=== PATIENT | male | born 1950 | race Caucasian/White ===

== ENCOUNTER 2019-02-14 09:59 | Inpatient (IN) | payer MEDICARE ==
[~2019-02-14] VITALS: Ht 167.6 cm; Wt 86.0 kg
[2019-02-14] MEDS: LANSOPRAZOLE SUSPENSION 30 MG/10 ML ORAL SYRINGE (FIRST-LANSOPRAZOLE) PEG SCH (09:00)
[2019-02-14] MEDS ORDERED: MECLIZINE 25 MG TABLET PEG PRN (13:00)
[2019-02-14] MEDS ORDERED: GLUCOSE 4 GM CHEW TABLET PO PRN (13:00)
[2019-02-14] MEDS ORDERED: ALBUTEROL SULFATE 2.5 MG/0.5 ML INH NEB SOLN NEB PRN (13:00)
[2019-02-14] MEDS ORDERED: MAGIC MOUTHWASH SUSPENSION BTL SSP SCH (13:00)
[2019-02-14] MEDS ORDERED: GLUCAGON FOR INJ 1 MG VIAL (J1610) SC PRN (13:00)
[2019-02-14] MEDS ORDERED: DEXTROSE 50% 50 ML SYRINGE IV PRN (13:00)
[2019-02-14 13:10] VITALS: BP 134/78
[2019-02-14] MEDS ORDERED: ECOT81TA5 PO (14:02)
[2019-02-14] MEDS ORDERED: MUCI600T31 PO (14:02)
[2019-02-14] MEDS ORDERED: JANU100T PO (14:02)
[2019-02-14] MEDS ORDERED: GLIM2TAB4 PO (14:02)
[2019-02-14] MEDS ORDERED: FLUO10CA15 PO (14:02)
[2019-02-14] MEDS ORDERED: METO25TA4 PO (14:02)
[2019-02-14] MEDS ORDERED: RAMI1CAP22 PO (14:02)
[2019-02-14] MEDS ORDERED: METF500T13 PO (14:02)
[2019-02-14] MEDS ORDERED: ALBU83IN INH (14:02)
[2019-02-14] MEDS ORDERED: OMEP1CAP73 PO (14:02)
[2019-02-14] MEDS ORDERED: MECL-86 PO (14:02)
[2019-02-14] MEDS ORDERED: CLOP75TA2 PO (14:02)
[2019-02-14] MEDS ORDERED: ATOR40TA75 PO (14:02)
--- NOTE | 2019-02-14 14:03 | CR.PDOC ---
General Date of Consultation: Feb 14, 2019 Referring Provider: NAJMA DURBIN MD Attending Physician: PERRY TROTTER MD Consultation REASON FOR CONSULTATION/CHIEF COMPLAINT: Medical Management HISTORY OF PRESENT ILLNESS: Patient is a 68-year-old male, past medical history significant for hypertension, hyperlipidemia, diabetes mellitus type 2, who presented to the hospital on account of feeling bad with left-sided weakness. He was transferred to [facility] for acute stroke. At that facility. CT brain was negative for acute intracranial process. Subsequent MRI did reveal right pontine infarct. Left-sided hemiplegia persisted with dysarthria and dysphagia. Patient had a swallow, speech evaluation, which showed persistent aspiration. A PEG tube was placed. He was started on medications for management of acute stroke and subsequently discharged to this facility for inpatient rehabilitation. On assessment, he denies chest pain, denies shortness of breath, denies discomfort. Spouse at bedside provided much of the history given patient's dysarthria ALLERGIES: Please see below. HOME MEDICATIONS: Please see below. PAST MEDICAL HISTORY: Diabetes mellitus Hypertension Hyperlipidemia PAST SURGICAL HISTORY: PEG tube placement Tonsillectomy Left hip replacement FAMILY HISTORY: Mother: CVA SOCIAL HISTORY: Marital status and/or living arrangements: , living with Denies tobacco, alcohol, polysubstance abuse REVIEW OF SYSTEMS: Review of systems not completed due to patient's dysarthria PHYSICAL EXAMINATION: GENERAL: NAD SKIN : Warm, dry intact HEENT: Slurred speech Atraumatic, normocephalic, moist mucous membrane CARDIOVASCULAR: Irregular rate and rhythm, S1S2, no JVD, bilateral lower extremity edema, distal pulses + palpable RESP: CTAB, no accessory muscle use noted ABDOMEN: PEG tube present. BS+ non distended non tender MS: no joint deformities NEURO: Alert and oriented x 3, left upper and lower extremity hemiplegia PSYCH: no anxiety or agitation, appropriate mood and affect. LABORATORY DATA: Please see below. ASSESSMENT/PLAN: Right pontine infarct -With left upper and lower extremity hemiplegia -Discharged to inpatient rehabilitation unit -Management of neurologic deficits by primary team -Continue beta kenney, statin, Plavix Hypertension -Continue ramipril, metoprolol -Blood pressure monitoring per unit protocol Type 2 diabetes mellitus -Hemoglobin check at another facility 8.2 -Continue glimepiride, Januvia, fingerstick monitoring every 6 hours -Caloric controlled feeds Dysphagia -Status post PEG placement -Nutrition consult for recommendations for feeds -Follow recommendations -Aspiration precautions DVT prophylaxis -Heparin subcutaneous Vital Signs/I&O Vital Signs Date Time Temp Pulse Resp B/P (MAP) Pulse Ox O2 Delivery O2 Flow Rate FiO2 02/14/19 13:10 97.6 68 16 134/78 (96) 92 Allergies Coded Allergies: No Known Allergies (Verified Allergy, Unknown, 02/14/19) YESSENIA WOODSP Feb 14, 2019 14:03
[2019-02-14] MEDS ORDERED: JARD1TAB3 PO (14:13)
[2019-02-14] MEDS ORDERED: METF-791 PO (14:13)
[2019-02-14] MEDS ORDERED: FENO135C6 PO (14:13)
[2019-02-14 14:47] LABS: BASO % 0.5 % (0.0-1.0); EOS # 0.2 10^3/uL (0.0-0.50); EOS % 2.6 % (0.0-3.0); HEMATOCRIT 50.6 % (42.0-52.0); HEMOGLOBIN 16.5 g/dl (13.5-17.5); LYMPH # 0.9 10^3/uL (1.5-4.5); MEAN CORPUSCULAR HEMOGLOBIN 28.9 pg (27.0-33.0); MEAN CORPUSCULAR HGB CONC 32.6 g/dl (32.0-36.5); MEAN CORPUSCULAR VOLUME 88.6 fl (80.0-96.0); MONO # 0.6 10^3/uL (0.0-0.8); NEUTROPHILS # 4.4 10^3/uL (1.8-7.7); NEUTROPHILS % 71.7 % (36.0-66.0); PLATELET COUNT, AUTOMATED 199 10^3/uL (150-450); RED BLOOD COUNT 5.71 10^6/uL (4.30-6.10); WHITE BLOOD COUNT 6.2 10^3/uL (4.0-10.0)
[2019-02-14 15:15] LABS: BLOOD UREA NITROGEN 18 MG/DL (7-18); CALCIUM LEVEL 8.3 MG/DL (8.8-10.2); CARBON DIOXIDE LEVEL 27 MEQ/L (21-32); CHLORIDE LEVEL 107 MEQ/L (98-107); CK-MB VALUE MASS 1.5 NG/ML (<3.6); CREATININE FOR GFR 0.69 MG/DL (0.70-1.30); GLOMERULAR FILTRATION RATE > 60.0 (>49); GLUCOSE, FASTING 221 MG/DL (70-100); SODIUM LEVEL 141 MEQ/L (136-145); TROPONIN I < 0.02 NG/ML (< 0.10)
[2019-02-14 15:27] LABS: AMORPHOUS SEDIMENT SMALL (NEGATIVE); APPEARANCE, URINE CLOUDY (CLEAR); BACTERIA, URINE AUTO NEGATIVE (NEGATIVE); BILIRUBIN, URINE AUTO NEGATIVE (NEGATIVE); BLOOD, URINE BLOOD NEGATIVE (NEGATIVE); COLOR, URINE YELLOW (YELLOW); GLUCOSE, URINE (UA) AUTO 3+ mg/dL (NEGATIVE); KETONE, URINE AUTO NEGATIVE (NEGATIVE); LEUKOCYTE ESTERASE, URINE AUTO NEGATIVE (NEGATIVE); NITRITE, URINE AUTO NEGATIVE (NEGATIVE); PROTEIN, URINE AUTO NEGATIVE (NEGATIVE); RBC, URINE AUTO 4 /HPF (0-3); SPECIFIC GRAVITY URINE AUTO 1.024 (1.002-1.035); SQUAMOUS EPITHELIAL CELL UR AU 0 /HPF (0-6); URIC ACID CRYSTALS SMALL; UROBILINOGEN, URINE AUTO 0.2 mg/dL (0.0-2.0); WBC, URINE AUTO 0 /HPF (0-3)
[2019-02-14] MEDS: guaiFENesin SYRUP 200 MG/10 ML UDC PEG SCH ×2 (16:00→22:28)
--- NOTE | 2019-02-14 17:28 | HPEPDOC ---
Operations Administrator Note DATE OF ADMISSION: 02-14-19 SOURCE OF ADMISSION INFORMATION: [facility] and patient CHIEF COMPLAINT: stroke HISTORY OF PRESENT ILLNESS: 68M pmh HTn, HLD, DM, obesity who presented t [facility] on 02-06-19 complaining of left sided weakness and slurred speech. CT head was negative for intracranial hemorrhage and MRI showed, Focal area of for DWI hyperintensity in the right bao suggestive of for acute to early subacute infarct CT angio head and neck did not show large vessel occlusions. He was admitted to the stroke service, started on ASA and Plavix to be continued for 90 days total then transitioned to just ASA. ECHO was also performed showing, Overall LV systolic function is normalThere are no regional wall motion abnormalities...There is no interatrial shunt visualized by color Doppler and 'bubble' study. Patient was noted to have severe dysphagia and underwent PEG tube placement on 02-12-19 without complication. He was evaluated by therapy and found to be significantly below his baseline for mobility and ADL management in the setting of dense left upper and lower extremity paresis and deemed medically appropriate for discharge to ARU on 02-14-19. REVIEW OF SYSTEMS: The following is a completed review of systems and has been reviewed. Review of systems otherwise unremarkable. PAIN: Patient self reports no pain EYES: No recent vision changes EARS, NOSE, & THROAT: No throat pain +dysphagia CARDIOVASCULAR: Denies chest pain or palpitations PULMONARY: Denies shortness of breath, + weak cough GASTROINTESTINAL: Denies constipation/diarrhea GENITOURINARY: no dysuria or incontinence MUSCULOSKELETAL: left hip replacement NEUROLOGICAL:left sides paresis HEMATOLOGICAL: negative SKIN:peg PSYCHIATRIC: Unremarkable All other review of systems found to be negative. PAST MEDICAL HISTORY: as per HPI PAST SURGICAL HISTORY: left hip replacement ALLERGIES: Please see below. MEDICATIONS: Please see below. 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 GENERAL: Pleasant and cooperative. No acute distress. HEENT: PERRL. Extraocular movements intact. Clear conjunctiva. left facial droop with tongue deviation to the left CARDIOVASCULAR: Regular rate and rhythm. No murmurs, rubs, or gallops LUNGS: scattered rhonchi ABDOMEN: Soft, nontender, nondistended. Positive bowel sounds. Normal active bowel sounds. +PEG NEUROLOGICAL: Alert and oriented times three. Cranial nerves II, III, IV, V, , VIII grossly intact with deficits in VII, IX-XII on left. Sensation grossly intact in all 4 extremities +clonus 6 beats left foot, +babinski, brisk patellar reflex EXTREMITIES: 5\5 strength right upper extremities. 5\5 strength right lower extremity. flaccid paresis LUE, 2/5 hip flexion, knee extension, adduction, 0/5 ankle DF and EHL, 0/5 plantar flexion SKIN: PEG site c/d/i LABORATORY DATA: A1C 8.2% IMAGING:Imaging documentation personally reviewed by record FUNCTIONAL STATUS: Premorbid: Modified Independent with all activities of daily life as well as mobility with walker and cane On Admission: Maximum assistance for bathing, upper body dressing, bed chair and wheelchair transfers, toilet transfers, ambulation. GOALS: Mod-I with wide-based quad cane household distances, supervision for stair negotiation, Mod-I for functional transfers, dressing, toileting, Supervis ion for bathing, medical optimization, assess for DME needs ASSESSMENT:68-year-old M with past medical history of HTN, DM, HLD who presents status post right pontine stroke PLAN: 1. 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 Neuro: s.p right pontine stroke with dysphagia and dense hemiplegia- c/u secondary stroke prevention ASA, plavix, statin, BP control -Prozac for motor recovery and mood 3. Cardio- pmh HTN c/u BP meds, HTN c/u statin, medicine consulted to assist in management 4. Resp: encourage incentive spirometry, DuoNeb, Guaifenesin, flonase, CXR ordered, monitor for infection- no leukocytosis on admission 5. : monitor PVRs will obtain UA 6. GI: PPI for ppx, bowel meds for optimal bowl care 7. Endo: pmh DM c/u Januvia and glimepiride with ISS coverage adjust prn 8. Nutrition- c/u tube feeds overnight with midday bolus 9. DVT ppx: heparin and albin 10. Dispo: TBD POST ADMISSION PHYSICIAN EVALUATION: Medical and functional status: Description of medical status, medical assessment: As above. Rehabilitation diagnosis and current and prior cold morbid medical conditions as above. Risk of complications and plans to mitigate them as above. Description of functional status current status is as above. Prior status as above. Status compared to preadmission: There are no clinically significant differences between the patient's current status and the information described on the preadmission screening document. Treatment plan anticipated: Treatment plan is as described above. Required disciplines including physical therapy, occupational therapy, others as noted above. Intensity of services: 3 hours a day, 6 days a week. Special considerations: There are no specific special or safety considerations that would likely preclude immediate implementation of an intensive rehabilitation program or subsequently influence the plan of care. ATTESTATION: Considering all the information above, it is my best judgment that this patient requires intensive rehabilitation therapy as described above and an inpatient hospital environment due to the complexity of nursing, medical, and rehabilitation needs required by the patient. Furthermore, this patient can reasonably be expected to participate in an benefit from an inpatient rehabilitation stay with an interdisciplinary team approach to the delivery of rehabilitation care under the direction and supervision of rehabilitation physician. PROGNOSIS: Good ESTIMATED LENGTH OF STAY:21-24 days. PROJECTED DISCHARGE DESTINATION: Home with family support and any durable medical equipment required to increase functional safety and mobility. TIME SPENT COUNSELING AND COORDINATING INITIAL CARE: Greater than 70 minutes. Vital Signs Vital Sign - Last 24 Hours 02/14/19 13:10 Temp 97.6 Pulse 68 Resp 16 B/P (MAP) 134/78 (96) Pulse Ox 92 Laboratory Data CBC/BMP Laboratory Tests 02/14/19 14:27 Red Blood Count 5.71, Mean Corpuscular Volume 88.6, Mean Corpuscular Hemoglobin 28.9, Mean Corpuscular Hemoglobin Concent 32.6, Red Cell Distribution Width 14.0, Neutrophils (%) (Auto) 71.7 H, Lymphocytes (%) (Auto) 15.0 L, Monocytes ( %) (Auto) 10.0 H, Eosinophils (%) (Auto) 2.6, Basophils (%) (Auto) 0.5, Neutrophils # (Auto) 4.4, Lymphocytes # (Auto) 0.9 L, Monocytes # (Auto) 0.6, Eosinophils # (Auto) 0.2, Basophils # (Auto) 0.0, Calcium Level 8.3 L Labs 24H Laboratory Tests 2 02/14/19 14:27: Immature Granulocyte % (Auto) 0.2, White Blood Count 6.2, Red Blood Count 5.71, Hemoglobin 16.5, Hematocrit 50.6, Mean Corpuscular Volume 88.6, Mean Corpuscular Hemoglobin 28.9, Mean Corpuscular Hemoglobin Concent 32.6, Red Cell Distribution Width 14.0, Platelet Count 199, Neutrophils (%) (Auto) 71.7H, Lymphocytes (%) (Auto) 15.0L, Monocytes (%) (Auto) 10.0H, Eosinophils (%) (Auto) 2.6, Basophils (%) (Auto) 0.5, Neutrophils # (Auto) 4.4, Lymphocytes # (Auto) 0.9L, Monocytes # (Auto) 0.6, Eosinophils # (Auto) 0.2, Basophils # (Auto) 0.0, Nucleated Red Blood Cells % (auto) 0.0, Anion Gap 7L, Glomerular Filtration Rate > 60.0, Blood Urea Nitrogen 18, Creatinine 0.69L, Sodium Level 141, Potassium Level 4.0, Chloride Level 107, Carbon Dioxide Level 27, Calcium Level 8.3L, Creatine Kinase MB 1.5, Troponin I < 0.02 02/14/19 14:59: Urine Appearance CLOUDYH, Urine Color YELLOW, Urine pH 5.0, Urine Specific Union 1.024, Urine Protein NEGATIVE, Urine Glucose (UA) 3+H, Urine Ketones NEGATIVE, Urine Urobilinogen 0.2, Urine Bilirubin NEGATIVE, Urine Leukocyte Esterase NEGATIVE, Urine Blood NEGATIVE, Urine Nitrite NEGATIVE, Urine WBC (Auto) 0, Urine RBC (Auto) 4H, Urine Hyaline Casts (Auto) 0, Urine Bacteria (Auto) NEGATIVE, Urine Squamous Epithelial Cells 0, Urine Uric Acid Crystals (Auto) SMALL, Urine Amorphous Sediment SMALLH, Urine Sperm (Auto) Microbiology Microbiology 02/14/19 Urine Culture, Received Pending Home Medications Scheduled Aspirin (Ecotrin) 81 Mg Tablet.dr, 81 MG PO DAILY, (Reported) Atorvastatin Calcium (Atorvastatin Calcium) 40 Mg Tablet, 40 MG PO QHS, (Reported) Clopidogrel Bisulfate (Clopidogrel) 75 Mg Tablet, 75 MG PO DAILY, (Reported) STARTED AT [facility] Empagliflozin (Jardiance) 25 Mg Tablet, 25 MG PO DAILY, (Reported) Fenofibric Acid (Choline) (Fenofibric Acid) 135 Mg Capsule.dr, 135 MG PO DAILY, (Reported) Fluoxetine Hcl (Fluoxetine HCl) 10 Mg Capsule, 10 MG PO DAILY, (Reported) STARTED AT [facility] Glimepiride (Glimepiride) 2 Mg Tablet, 4 MG PO BID, (Reported) Metformin HCl (Metformin HCl ER) 500 Mg Tab.er.24h, 1,000 MG PO BID, (Reported) Metoprolol Tartrate (Metoprolol Tartrate) 25 Mg Tablet, 25 MG PO BID, (Reported) Omeprazole (Omeprazole) 20 Mg Capsule.dr, 20 MG PO DAILY, (Reported) Ramipril (Ramipril) 2.5 Mg Capsule, 2.5 MG PO DAILY, (Reported) Sitagliptin Phosphate (Januvia) 100 Mg Tablet, 100 MG PO DAILY, (Reported) Scheduled PRN Albuterol Sulf (Albuterol Sulfate) 2.5 Mg/3 Ml Vial.neb, 2.5 MG INH Q6H PRN for SHORTNESS OF BREATH, (Reported) Guaifenesin (Mucinex) 600 Mg Tab.er.12h, 600 MG PO BID PRN for CHEST CONGESTION, (Reported) Meclizine HCl (Meclizine HCl) 25 Mg Tablet, 25 MG PO TID PRN for DIZZINESS, (Reported) Allergies Coded Allergies: No Known Allergies (Verified Allergy, Unknown, 02/14/19) A-FIB/CHADSVASC A-FIB History Current/History of A-Fib/PAF?: No NAJMA DURBIN MD Feb 14, 2019 17:28
[2019-02-14] MEDS ORDERED: HumaLOG INSULIN (NovoLOG) PER UNIT SC SCH ×2 (17:30→21:00)
--- NOTE | 2019-02-14 17:55 | REP ---
REASON: Dyspnea. AP and lateral views were obtained. The patient was unable to raise his arms above his head for an optimal lateral view. This limited AP and lateral view exam shows the cardiac silhouette to be accentuated by technique. The technique utilized in obtaining the radiograph has magnified the cardiac silhouette and accentuated the interstitial markings. No abnormal lung field opacities are noted. The osseous structures are within normal limits. IMPRESSION:Cardiomegaly suspected accentuated by technique. Limitations as described above. Electronically Signed by Walter Stockton DO 02/14/2019 06:04 P
--- NOTE | 2019-02-14 17:55 | REP ---
HISTORY: Immobility with pain and swelling. TECHNIQUE: Multiple ultrasonographic images of the deep venous structures of the bilateral thighs were obtained from the common femoral vein to the popliteal vein along with Doppler interrogation and color flow Doppler images. FINDINGS: There is no abnormal echogenic material seen within any of the visualized deep venous structures that would suggest acute thrombosis. Coaptation is unremarkable throughout. Doppler interrogation shows an expected response to respiratory variability and augmentation. The color flow images show what appears to be a normal vascular pattern throughout. IMPRESSION: There is no ultrasonographic evidence of deep venous thrombosis involving any of the visualized deep venous structures of the bilateral thighs, as described above. Electronically Signed by Walter Stockton DO 02/14/2019 06:05 P
[2019-02-14] MEDS: IPRATROPIUM 0.5MG/ALBUTEROL 2.5MG INH SOL UD 3ML (DUONEB)(J7620) NEB SCH (19:18)
[2019-02-14 20:00] VITALS: BP 132/98
[2019-02-14] MEDS: HEPARIN SOD (PORCINE) 5000 UNITS/ML VIAL SC SCH (22:27)
[2019-02-14] MEDS: DOCUSATE SOD LIQ 100MG/10ML UDC PO SCH (22:27)
[2019-02-14] MEDS: ATORVASTATIN 20 MG TAB PEG SCH (22:28)
[2019-02-14] MEDS: METOPROLOL TART 25 MG TABLET PEG SCH (22:30)
[2019-02-15] MEDS: IPRATROPIUM 0.5MG/ALBUTEROL 2.5MG INH SOL UD 3ML (DUONEB)(J7620) NEB SCH ×4 (01:27→19:05)
[2019-02-15 06:00] VITALS: BP 143/70
[2019-02-15 06:53] LABS: BASO % 0.3 % (0.0-1.0); EOS # 0.2 10^3/uL (0.0-0.50); EOS % 3.1 % (0.0-3.0); HEMATOCRIT 47.4 % (42.0-52.0); HEMOGLOBIN 15.6 g/dl (13.5-17.5); LYMPH # 0.9 10^3/uL (1.5-4.5); LYMPH % 15.3 % (24.0-44.0); MEAN CORPUSCULAR HEMOGLOBIN 28.5 pg (27.0-33.0); MEAN CORPUSCULAR HGB CONC 32.9 g/dl (32.0-36.5); MEAN CORPUSCULAR VOLUME 86.7 fl (80.0-96.0); MONO # 0.6 10^3/uL (0.0-0.8); MONO % 10.3 % (0.0-5.0); NEUTROPHILS # 4.2 10^3/uL (1.8-7.7); NEUTROPHILS % 70.8 % (36.0-66.0); PLATELET COUNT, AUTOMATED 195 10^3/uL (150-450); RED BLOOD COUNT 5.47 10^6/uL (4.30-6.10); WHITE BLOOD COUNT 5.9 10^3/uL (4.0-10.0)
[2019-02-15 07:25] LABS: ALBUMIN 2.8 GM/DL (3.2-5.2); ALT/SGPT 75 U/L (12-78); BILIRUBIN,TOTAL 0.3 MG/DL (0.2-1.0); BLOOD UREA NITROGEN 17 MG/DL (7-18); CALCIUM LEVEL 8.8 MG/DL (8.8-10.2); CARBON DIOXIDE LEVEL 26 MEQ/L (21-32); CHLORIDE LEVEL 105 MEQ/L (98-107); CREATININE FOR GFR 0.76 MG/DL (0.70-1.30); GLOMERULAR FILTRATION RATE > 60.0 (>49); GLUCOSE, FASTING 328 MG/DL (70-100); POTASSIUM SERUM 3.7 MEQ/L (3.5-5.1); SODIUM LEVEL 139 MEQ/L (136-145); TOTAL PROTEIN 7.1 GM/DL (6.4-8.2)
[2019-02-15] MEDS: GLIMEPIRIDE 2 MG TAB PEG SCH (08:30)
[2019-02-15] MEDS: ramipriL 1.25 MG CAP PEG SCH (08:31)
[2019-02-15] MEDS: METOPROLOL TART 25 MG TABLET PEG SCH ×2 (08:31→21:26)
[2019-02-15] MEDS: SITagliptin 50 MG TAB (JANUVIA) PEG SCH (08:31)
[2019-02-15] MEDS: ASPIRIN 81 MG CHEW TABLET PEG SCH (08:32)
[2019-02-15] MEDS: DOCUSATE SOD LIQ 100MG/10ML UDC PO SCH ×2 (08:32→21:26)
[2019-02-15] MEDS: LANSOPRAZOLE SUSPENSION 30 MG/10 ML ORAL SYRINGE (FIRST-LANSOPRAZOLE) PEG SCH (08:32)
[2019-02-15] MEDS: guaiFENesin SYRUP 200 MG/10 ML UDC PEG SCH ×3 (08:32→21:26)
[2019-02-15] MEDS: CLOPIDOGREL 75 MG TAB PEG SCH (08:33)
[2019-02-15] MEDS: HEPARIN SOD (PORCINE) 5000 UNITS/ML VIAL SC SCH ×2 (08:33→21:27)
[2019-02-15] MEDS ORDERED: ramipriL 5 MG CAP PEG SCH (09:00)
[2019-02-15] MEDS ORDERED: OMEPRAZOLE 20 MG CAP XX SCH (09:00)
[2019-02-15] MEDS ORDERED: DEXTROSE 50% 50 ML SYRINGE IV PRN (10:15)
[2019-02-15] MEDS ORDERED: GLUCOSE 4 GM CHEW TABLET PO PRN (10:15)
[2019-02-15] MEDS ORDERED: GLUCAGON FOR INJ 1 MG VIAL (J1610) SC PRN (10:15)
[2019-02-15] MEDS ORDERED: HumaLOG INSULIN (NovoLOG) PER UNIT SC SCH (12:00)
--- NOTE | 2019-02-15 12:39 | IPNPDOC ---
Text Note Date of Service The patient was seen on 02/15/19. NOTE Subjective: up in wheelchair at bedside, speech therapist present, patient d enies any discomfort. Objective GENERAL: NAD SKIN : Warm, dry intact HEENT: Slurred speech Atraumatic, normocephalic, moist mucous membrane CARDIOVASCULAR: Irregular rate and rhythm, S1S2, no JVD, bilateral lower extremity edema, distal pulses + palpable RESP: CTAB, no accessory muscle use noted ABDOMEN: PEG tube present. BS+ non distended non tender MS: no joint deformities NEURO: Alert and oriented x 3, left upper and lower extremity hemiplegia PSYCH: no anxiety or agitation, appropriate mood and affect. ASSESSMENT/PLAN: Right pontine infarct -With left upper and lower extremity hemiplegia -rehabilitation by primary team -Continue beta kenney, statin, Plavix Cardiac Arrhythmia -12 lead EKG with sinus bradycardia, frequent VPC, and left axis deviation -referral to cardiology at discharge is recommended -monitoring of electrolytes to keep K+>4, Mg>2 -continue betablocker therapy Hypertension -Continue ramipril, metoprolol -Blood pressure monitoring per unit protocol Type 2 diabetes mellitus -uncontrolled -most recent Hemoglobin A1c check at another facility 8.2 -Continue glimepiride, Januvia, fingerstick monitoring every 6 hours while on PEG feeds -follow ST recommendations Dysphagia -Status post PEG placement -started on feeds via PEG on nutrition recommendations -continue Aspiration precautions DVT prophylaxis -Heparin subcutaneous VS,Fishbone, I+O VS, Fishbone, I+O Laboratory Tests 02/14/19 14:27 Red Blood Count 5.71, Mean Corpuscular Volume 88.6, Mean Corpuscular Hemoglobin 28.9, Mean Corpuscular Hemoglobin Concent 32.6, Red Cell Distribution Width 14.0, Neutrophils (%) (Auto) 71.7 H, Lymphocytes (%) (Auto) 15.0 L, Monocytes (%) (Auto) 10.0 H, Eosinophils (%) (Auto) 2.6, Basophils (%) (Auto) 0.5, Neutrophils # (Auto) 4.4, Lymphocytes # (Auto) 0.9 L, Monocytes # (Auto) 0.6, Eosinophils # (Auto) 0.2, Basophils # (Auto) 0.0, Calcium Level 8.3 L 02/15/19 06:23 Red Blood Count 5.47, Mean Corpuscular Volume 86.7, Mean Corpuscular Hemoglobin 28.5, Mean Corpuscular Hemoglobin Concent 32.9, Red Cell Distribution Width 13.6, Neutrophils (%) (Auto) 70.8 H, Lymphocytes (%) (Auto) 15.3 L, Monocytes (%) (Auto) 10.3 H, Eosinophils (%) (Auto) 3.1 H, Basophils (%) (Auto) 0.3, Neutrophils # (Auto) 4.2, Lymphocytes # (Auto) 0.9 L, Monocytes # (Auto) 0.6, Eosinophils # (Auto) 0.2, Basophils # (Auto) 0.0, Calcium Level 8.8, Aspartate Amino Transf (AST/SGOT) 36, Alanine Aminotransferase (ALT/SGPT) 75, Alkaline Phosphatase 113, Total Bilirubin 0.3, Total Protein 7.1, Albumin 2.8 L Vital Signs Date Time Temp Pulse Resp B/P (MAP) Pulse Ox O2 Delivery O2 Flow Rate FiO2 02/15/19 08:31 143/70 02/15/19 08:31 68 02/15/19 06:00 97.1 19 91 I&O- Last 24 Hours up to 6 AM 02/15/19 06:00 Intake Total 625 ml Output Total 1600 ml Balance -[address] [facility] Feb 15, 2019 12:38
[2019-02-15] MEDS: FLUoxetine 20 MG CAP PO SCH (12:57)
[2019-02-15] MEDS: HumaLOG INSULIN (NovoLOG) PER UNIT SC SCH ×2 (12:58→17:05)
[2019-02-15 14:00] VITALS: BP 121/59
[2019-02-15 20:00] VITALS: BP 123/64
[2019-02-15] MEDS ORDERED: FLUoxetine 20 MG CAP PEG SCH (21:00)
[2019-02-15] MEDS: ATORVASTATIN 20 MG TAB PEG SCH (21:26)
[2019-02-16] MEDS: HumaLOG INSULIN (NovoLOG) PER UNIT SC SCH ×4 (00:28→18:30)
[2019-02-16] MEDS: IPRATROPIUM 0.5MG/ALBUTEROL 2.5MG INH SOL UD 3ML (DUONEB)(J7620) NEB SCH ×4 (01:30→20:01)
[2019-02-16 06:44] VITALS: BP 135/67
[2019-02-16] MEDS: DOCUSATE SOD LIQ 100MG/10ML UDC PO SCH ×2 (08:22→21:16)
[2019-02-16] MEDS: guaiFENesin SYRUP 200 MG/10 ML UDC PEG SCH ×3 (08:22→21:16)
[2019-02-16] MEDS: SITagliptin 50 MG TAB (JANUVIA) PEG SCH (08:23)
[2019-02-16] MEDS: CLOPIDOGREL 75 MG TAB PEG SCH (08:23)
[2019-02-16] MEDS: ASPIRIN 81 MG CHEW TABLET PEG SCH (08:24)
[2019-02-16] MEDS: METOPROLOL TART 25 MG TABLET PEG SCH ×2 (08:24→21:17)
[2019-02-16] MEDS: GLIMEPIRIDE 2 MG TAB PEG SCH (08:24)
[2019-02-16] MEDS: FLUoxetine 20 MG CAP PO SCH (08:25)
[2019-02-16] MEDS: LANSOPRAZOLE SUSPENSION 30 MG/10 ML ORAL SYRINGE (FIRST-LANSOPRAZOLE) PEG SCH (08:26)
[2019-02-16] MEDS: HEPARIN SOD (PORCINE) 5000 UNITS/ML VIAL SC SCH ×2 (08:26→21:17)
[2019-02-16] MEDS: ramipriL 1.25 MG CAP PEG SCH (08:30)
[2019-02-16 14:00] VITALS: BP 137/67
--- NOTE | 2019-02-16 15:58 | ECGEPIP ---
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
[2019-02-16 19:52] VITALS: BP 117/60
[2019-02-16] MEDS: LEVEMIR (INSULIN DETEMIR) 1 UNITS/0.01ML SC SCH (21:17)
[2019-02-16] MEDS: ATORVASTATIN 20 MG TAB PEG SCH (21:18)
[2019-02-17] MEDS: HumaLOG INSULIN (NovoLOG) PER UNIT SC SCH ×4 (00:50→18:15)
[2019-02-17] MEDS: IPRATROPIUM 0.5MG/ALBUTEROL 2.5MG INH SOL UD 3ML (DUONEB)(J7620) NEB SCH ×4 (01:45→20:00)
[2019-02-17 06:03] VITALS: BP 125/75
[2019-02-17] MEDS: METOPROLOL TART 25 MG TABLET PEG SCH ×2 (09:00→21:36)
[2019-02-17] MEDS: ASPIRIN 81 MG CHEW TABLET PEG SCH (09:21)
[2019-02-17] MEDS: HEPARIN SOD (PORCINE) 5000 UNITS/ML VIAL SC SCH ×2 (09:21→21:37)
[2019-02-17] MEDS: CLOPIDOGREL 75 MG TAB PEG SCH (09:21)
[2019-02-17] MEDS: DOCUSATE SOD LIQ 100MG/10ML UDC PO SCH ×2 (09:21→21:35)
[2019-02-17] MEDS: guaiFENesin SYRUP 200 MG/10 ML UDC PEG SCH ×3 (09:21→21:35)
[2019-02-17] MEDS: LANSOPRAZOLE SUSPENSION 30 MG/10 ML ORAL SYRINGE (FIRST-LANSOPRAZOLE) PEG SCH (09:21)
[2019-02-17] MEDS: SITagliptin 50 MG TAB (JANUVIA) PEG SCH (09:22)
[2019-02-17] MEDS: ramipriL 1.25 MG CAP PEG SCH (09:22)
[2019-02-17] MEDS: FLUoxetine 20 MG CAP PO SCH (09:22)
[2019-02-17] MEDS: GLIMEPIRIDE 2 MG TAB PEG SCH (09:23)
[2019-02-17 14:00] VITALS: BP 132/67
[2019-02-17 20:00] VITALS: BP 123/69
[2019-02-17] MEDS ORDERED: traZODone 25MG PER 1/2 TABLET PEG SCH (21:00)
[2019-02-17] MEDS: traZODone 25MG PER 1/2 TABLET PO SCH (21:35)
[2019-02-17] MEDS: ATORVASTATIN 20 MG TAB PEG SCH (21:35)
[2019-02-17] MEDS: LEVEMIR (INSULIN DETEMIR) 1 UNITS/0.01ML SC SCH (21:37)
[2019-02-18] MEDS: IPRATROPIUM 0.5MG/ALBUTEROL 2.5MG INH SOL UD 3ML (DUONEB)(J7620) NEB SCH ×4 (00:24→20:07)
[2019-02-18] MEDS: HumaLOG INSULIN (NovoLOG) PER UNIT SC SCH ×4 (00:52→17:45)
[2019-02-18 05:59] VITALS: BP 147/65
[2019-02-18] MEDS: ramipriL 1.25 MG CAP PEG SCH (08:55)
[2019-02-18] MEDS: GLIMEPIRIDE 2 MG TAB PEG SCH (08:55)
[2019-02-18] MEDS: DOCUSATE SOD LIQ 100MG/10ML UDC PO SCH ×2 (08:55→21:41)
[2019-02-18] MEDS: guaiFENesin SYRUP 200 MG/10 ML UDC PEG SCH ×3 (08:55→21:41)
[2019-02-18] MEDS: CLOPIDOGREL 75 MG TAB PEG SCH (08:55)
[2019-02-18] MEDS: HEPARIN SOD (PORCINE) 5000 UNITS/ML VIAL SC SCH ×2 (08:56→21:41)
[2019-02-18] MEDS: METOPROLOL TART 25 MG TABLET PEG SCH ×2 (08:56→21:00)
[2019-02-18] MEDS: LANSOPRAZOLE SUSPENSION 30 MG/10 ML ORAL SYRINGE (FIRST-LANSOPRAZOLE) PEG SCH (08:56)
[2019-02-18] MEDS: SITagliptin 50 MG TAB (JANUVIA) PEG SCH (08:56)
[2019-02-18] MEDS: ASPIRIN 81 MG CHEW TABLET PEG SCH (08:56)
[2019-02-18] MEDS: FLUoxetine 20 MG CAP PO SCH (12:41)
[2019-02-18 13:46] LABS: HEMOGLOBIN A1c 8.2 %
[2019-02-18 14:00] VITALS: BP 122/17
[2019-02-18] MEDS: SALIVA SUBSTITUTE(MOUTHKOTE) BTL MT SCH ×2 (17:00→21:39)
--- NOTE | 2019-02-18 17:06 | IPNPDOC ---
PM&R Progress Note DATE OF SERVICE: Feb 18, 2019 Check [employer] Transfer B[employer]er Progress Note Subjective: Patient seen in his room with friend court stating he is sleeping well and would like ot continue on his current regimen. He reports his left arm is still very weak. REVIEW OF SYSTEMS: The following is a completed review of systems and has been reviewed. Review of systems otherwise unremarkable. PAIN: Patient self reports no pain EYES: No recent vision changes EARS, NOSE, & THROAT: No throat pain +dysphagia CARDIOVASCULAR: Denies chest pain or palpitations PULMONARY: Denies shortness of breath, + weak cough GASTROINTESTINAL: Denies constipation/diarrhea GENITOURINARY: no dysuria or incontinence MUSCULOSKELETAL: left hip replacement NEUROLOGICAL:left sides paresis HEMATOLOGICAL: negative SKIN:peg PSYCHIATRIC: Unremarkable All other review of systems found to be negative. PHYSICAL EXAMINATION: VITAL SIGNS: Please see below. GENERAL: Pleasant and cooperative. No acute distress. HEENT: PERRL. Extraocular movements intact. Clear conjunctiva. left facial droop with tongue deviation to the left CARDIOVASCULAR: Regular rate and rhythm. No murmurs, rubs, or gallops LUNGS: scattered rhonchi ABDOMEN: Soft, nontender, nondistended. Positive bowel sounds. Normal active bowel sounds. +PEG NEUROLOGICAL: Alert and oriented times three. Cranial nerves II, III, IV, V, , VIII grossly intact with deficits in VII, IX-XII on left. Sensation grossly intact in all 4 extremities +clonus 6 beats left foot, +babinski, brisk patellar reflex EXTREMITIES: 5\5 strength right upper extremities. 5\5 strength right lower extremity. flaccid paresis LUE, 2/5 hip flexion, knee extension, adduction, 0/5 ankle DF and EHL, 0/5 plantar flexion ASSESSMENT:68-year-old M with past medical history of HTN, DM, HLD who presents status post right pontine stroke PLAN: 1. Rehab: PT- improve gait, strengthen LLE, stretch heel cords, improve balance and endurance, multipodus when in bed OT- teach ADl management with use of right arm, strengthen/stretch/preserve ROM LUE, splinting, and E-stim FLIGHT TECHNICIAN- NPO, c/u oral rinse, advance diet prn with use of FEES or MBS, evaluate for cogntive deficits 2. Neuro: s.p right pontine stroke with dysphagia and dense hemiplegia- c/u secondary stroke prevention ASA, plavix, statin, BP control -c/u Prozac for motor recovery and mood 3. Cardio- pmh HTN c/u BP meds, HTN c/u statin, medicine consulted to assist in management 4. Resp: encourage incentive spirometry, DuoNeb, Guaifenesin, flonase, -CXR with no acute infiltrate, no leukocytosis -oral mouth rinse ordered 5. : monitor PVRs, Ucx negative 6. GI: PPI for ppx, bowel meds for optimal bowl care 7. Endo: pmh DM c/u Januvia and glimepiride with ISS coverage adjust prn, Levemir added and adjusted qHS for elevated FS overnight 8. Nutrition- c/u tube feeds overnight with midday bolus 9. DVT ppx: heparin and albin, dopplers negative for DVT bilat 10. Dispo: TBD Allergies Coded Allergies: No Known Allergies (Verified Allergy, Unknown, 02/14/19) Vital Signs Vital Signs Date Time Temp Pulse Resp B/P (MAP) Pulse Ox O2 Delivery O2 Flow Rate FiO2 02/18/19 14:00 98.3 64 18 122/17 (52) 96 Laboratory Data Labs 24H Laboratory Tests 2 02/17/19 18:11: Bedside Glucose (Misc Panel) 273H 02/18/19 00:03: Bedside Glucose (Misc Panel) 321H 02/18/19 05:16: Bedside Glucose (Misc Panel) 160H 02/18/19 11:46: Bedside Glucose (Misc Panel) 204H 02/18/19 13:06: Estimated Mean Plasma Glucose 189H, Hemoglobin A1c 8.2 Microbiology Microbiology 02/14/19 Urine Culture - Final, Complete Current Medications Current Medications Current Medications Medications (Trade) Dose Ordered Sig/Hallie Route PRN Reason Start Time Stop Time Status Last Admin Dose Admin Albuterol Sulfate (Proventil Neb) 2.5 mg Q4HP PRN NEB SOB/WHEEZING 02/14/19 13:00 Albuterol/ Ipratropium (Duoneb (Ipr 0.5mg/Alb 2.5mg)) 3 ml RQ6H NEB 02/14/19 20:00 02/18/19 16:32 Aspirin (Aspirin Chewable) 81 mg DAILY PEG 02/15/19 09:00 02/18/19 08:56 Atorvastatin Calcium (Lipitor) 40 mg QHS PEG 02/14/19 21:00 02/17/19 21:35 Clopidogrel Bisulfate (PLAVix) 75 mg DAILY PEG 02/15/19 09:00 05/15/19 09:01 02/18/19 08:55 Dextrose (Dextrose 50%) 25 ml ASDIRECTED PRN IV SEE LABEL COMMENTS 02/14/19 13:00 02/15/19 10:27 DC Dextrose (Dextrose 50%) 25 ml ASDIRECTED PRN IV SEE LABEL COMMENTS 02/15/19 10:15 02/15/19 10:27 DC Docusate Sodium (Colace Liquid) 100 mg BID PO 02/14/19 21:00 02/18/19 08:55 Fluoxetine HCl (PROzac) 20 mg DAILY PO 02/15/19 09:00 02/17/19 14:43 DC 02/17/19 09:22 Fluoxetine HCl (PROzac) 20 mg DAILY@1200 PO 02/18/19 12:00 02/18/19 12:41 Fluoxetine HCl (PROzac) 20 mg QHS PEG 02/15/19 21:00 02/15/19 21:00 DC Glimepiride (Amaryl) 4 mg DAILY@0730 PEG 02/15/19 07:30 02/18/19 08:55 Glucagon (Glucagon) 1 mg ASDIRECTED PRN SC SEE LABEL COMMENTS 02/14/19 13:00 02/15/19 10:27 DC Glucagon (Glucagon) 1 mg ASDIRECTED PRN SC SEE LABEL COMMENTS 02/15/19 10:15 02/15/19 10:27 DC Glucose (Glucose) 16 GM ASDIRECTED PRN PO SEE LABEL COMMENTS 02/14/19 13:00 02/15/19 10:27 DC Glucose (Glucose) 16 GM ASDIRECTED PRN PO SEE LABEL COMMENTS 02/15/19 10:15 02/15/19 10:27 DC Guaifenesin (Robitussin) 5 ml TID PEG 02/14/19 16:00 02/18/19 16:45 Heparin Sodium (Porcine) (Heparin) 5,000 units Q12H SC 02/14/19 21:00 02/18/19 08:56 Home Med (Med Rec Complete!) ASDIRECTED XX 02/14/19 14:15 02/14/19 14:56 DC Insulin Detemir (Levemir Insulin) 10 units QHS ME 02/16/19 21:00 02/18/19 14:40 DC 02/17/19 21:37 Insulin Detemir (Levemir Insulin) 15 units QHS ME 02/18/19 21:00 Insulin Human Lispro (HumaLOG INSULIN) SEE PROTOCOL TABLE AC ME 02/14/19 17:30 02/15/19 10:14 DC 02/14/19 19:48 Insulin Human Lispro (HumaLOG INSULIN) SEE PROTOCOL TABLE ASDIRECTED ME 02/15/19 12:00 02/15/19 12:00 DC Insulin Human Lispro (HumaLOG INSULIN) SEE PROTOCOL TABLE Q6H ME 02/15/19 12:00 02/18/19 12:41 Insulin Human Lispro (HumaLOG INSULIN) SEE PROTOCOL TABLE QHS ME 02/14/19 21:00 02/15/19 10:14 DC Lansoprazole (First-Lansoprazole Oral Suspension) 30 mg DAILY PEG 02/14/19 09:00 02/18/19 08:56 Lidocaine/ Diphenhydr/Alum/ Mg/Simeth (Magic Mouthwash) 5ml ASDIRECTED SSP 02/14/19 13:00 Meclizine HCl (Antivert) 25 mg Q8HP PRN PEG DIZZINESS 02/14/19 13:00 02/16/19 08:23 Metoprolol Tartrate (Lopressor) 25 mg BID PEG 02/14/19 21:00 02/18/19 08:56 Omeprazole (PriLOSEC) 20 mg DAILY XX 02/15/19 09:00 02/15/19 09:00 DC Ramipril (Altace) 2.5 mg DAILY PEG 02/15/19 09:00 02/18/19 08:55 Ramipril (Altace) 2.5 mg DAILY PEG 02/15/19 09:00 Cancel Saliva Substitute (Mouthkote) 1 sprays QID MT 02/18/19 17:00 Sitagliptin Phosphate (Januvia) 100 mg DAILY PEG 02/15/19 09:00 02/18/19 08:56 Trazodone HCl (Desyrel) 25 mg QHS PEG 02/17/19 21:00 UNV Trazodone HCl (Desyrel) 25 mg QHS PO 02/17/19 21:00 02/17/19 21:35 NAJMA DURBIN MD Feb 18, 2019 17:06
[2019-02-18 19:54] VITALS: BP 133/63
[2019-02-18] MEDS: LEVEMIR (INSULIN DETEMIR) 1 UNITS/0.01ML SC SCH (21:40)
[2019-02-18] MEDS: traZODone 25MG PER 1/2 TABLET PO SCH (21:40)
[2019-02-18] MEDS: ATORVASTATIN 20 MG TAB PEG SCH (21:40)
--- NOTE | 2019-02-18 22:56 | IPN ---
DATE: 02/18/2019 He is sitting up in the wheelchair. He is on acute rehab for status post right pontine stroke with dense aphasia and hemiplegia. He has a percutaneous endoscopic gastrostomy (PEG) tube in place. He has a history of hypertension. Blood pressure is stable today at 147/65, pulse 68. He has diabetes type 2. Will get a hemoglobin A1c. He continues on insulin; he will increase it to 15 units nightly and Amaryl via the PEG tube every morning 4 mg. His blood sugar at midnight was 321, this morning 160, at 1146 hours 204, at 1709 hours it was 182; that was on Levemir 10 units has now been increased to 15. BUN is 17, creatinine 0.76. Electrolytes are normal. White count normal. Deep vein thrombosis (DVT) prophylaxis continues with heparin and thromboembolism deterrents (TEDs). OBJECTIVE: Blood pressure 122/70, pulse 64, respirations 18, temperature 98, oxygen saturation 96% on room air. Patient is alert and oriented times three. Pupils equal and react to light. Extraocular motions intact. Cornea and sclerae is clear. Conjunctivae is normal. He has a left facial droop, tongue deviates to the left. Neck is supple without lymphadenopathy. No thyromegaly. No goiter. Carotids 2+ without bruit. Chest: Clear to auscultation without wheeze or retractions. Heart is regular. Abdomen: Benign. Bowel sounds positive. PEG tube in place. Extremities: Left upper arm remains flaccid. Left lower extremity weakness. Peripheral pulses equal and palpable bilaterally. IMPRESSION: Right pontine infarct. Treatment rehab. Continue beta kenney, statin and Plavix. Cardiac arrhythmia. 12-lead with sinus bradycardia, frequent premature ventricular contractions (PVCs), occasionally in a bigeminal pattern, left bundle branch block. Outpatient cardiac workup on discharge recommended. Monitor potassium and magnesium. Will order recheck. Hypertension, stable. Continue ramipril and metoprolol. Diabetes. Continue glimepiride, Januvia and insulin. Continue fingersticks every 6 hours while on PEG tube. Dysphagia. Continue aspiration precautions. Continues on PEG tube, speech therapy Deep vein thrombosis prophylaxis with heparin.
[2019-02-19] MEDS: HumaLOG INSULIN (NovoLOG) PER UNIT SC SCH ×4 (00:04→17:48)
[2019-02-19] MEDS: IPRATROPIUM 0.5MG/ALBUTEROL 2.5MG INH SOL UD 3ML (DUONEB)(J7620) NEB SCH ×4 (02:00→19:40)
[2019-02-19 05:43] VITALS: BP 144/72
[2019-02-19 06:58] LABS: BLOOD UREA NITROGEN 19 MG/DL (7-18); CALCIUM LEVEL 8.4 MG/DL (8.8-10.2); CARBON DIOXIDE LEVEL 30 MEQ/L (21-32); CHLORIDE LEVEL 99 MEQ/L (98-107); CREATININE FOR GFR 0.83 MG/DL (0.70-1.30); GLOMERULAR FILTRATION RATE > 60.0 (>49); GLUCOSE, FASTING 282 MG/DL (70-100); POTASSIUM SERUM 3.9 MEQ/L (3.5-5.1); SODIUM LEVEL 136 MEQ/L (136-145)
[2019-02-19] MEDS: SITagliptin 50 MG TAB (JANUVIA) PEG SCH (08:14)
[2019-02-19] MEDS: guaiFENesin SYRUP 200 MG/10 ML UDC PEG SCH ×3 (08:15→20:37)
[2019-02-19] MEDS: ASPIRIN 81 MG CHEW TABLET PEG SCH (08:15)
[2019-02-19] MEDS: ramipriL 1.25 MG CAP PEG SCH (08:15)
[2019-02-19] MEDS: DOCUSATE SOD LIQ 100MG/10ML UDC PO SCH ×2 (08:15→20:37)
[2019-02-19] MEDS: CLOPIDOGREL 75 MG TAB PEG SCH (08:15)
[2019-02-19] MEDS: HEPARIN SOD (PORCINE) 5000 UNITS/ML VIAL SC SCH ×2 (08:16→20:37)
[2019-02-19] MEDS: LANSOPRAZOLE SUSPENSION 30 MG/10 ML ORAL SYRINGE (FIRST-LANSOPRAZOLE) PEG SCH (08:16)
[2019-02-19] MEDS: METOPROLOL TART 25 MG TABLET PEG SCH ×2 (08:16→20:36)
[2019-02-19] MEDS: GLIMEPIRIDE 2 MG TAB PEG SCH (08:16)
[2019-02-19] MEDS: SALIVA SUBSTITUTE(MOUTHKOTE) BTL MT SCH ×4 (08:17→20:38)
--- NOTE | 2019-02-19 12:19 | IPN ---
DATE: 02/19/2019 August is seen in Acute Rehabilitation Unit. I am rounding for the hospitalists. He was taking his wheelchair up and down the hallway when I saw him. He did not look to really have any medical issues. He is being followed for his hypertension, diabetes, using a percutaneous endoscopic gastrostomy (PEG) tube for feeding. He had frequent PVCs, some bigeminy. Outpatient cardiac workup is planned. PHYSICAL EXAMINATION: Afebrile. 144/72. Alert, conversant, no distress. LUNGS: Clear. HEART: Regular rhythm. ABDOMEN: Soft, nontender EXTREMITIES: Left upper and lower extremities are hemiplegic. LABORATORIES: Electrolytes unremarkable. Hemoglobin A1/c was 8.2%. Blood sugars are mildly elevated. IMPRESSION: 1. Diabetes. Less than optimal control. Was on Jardiance, glimepiride, metformin and Januvia as an outpatient. Here is on glimepiride 4 mg daily, Detemir insulin 15 units at bedtime, sliding scale insulin, Januvia 100 mg daily. I recommend that we restart his Jardiance 25 mg daily, which has cardiovascular benefit. I have not seen of the agents that he is currently taking. Restart metformin ER 500 mg daily. 2. Hypertension. Blood pressure is well controlled. 3. History of stroke. On aspirin and Plavix. Plavix is planned to be given for 90 days. Apparently, Jardiance is not available on the hospital formulary, it is unfortunate as it would be a good agent for him. He should restart this upon discharge.
[2019-02-19] MEDS: FLUoxetine 20 MG CAP PO SCH (12:40)
[2019-02-19 14:00] VITALS: BP 121/68
[2019-02-19] MEDS: MAGIC MOUTHWASH SUSPENSION BTL SSP SCH ×3 (14:00→20:37)
--- NOTE | 2019-02-19 16:44 | IPNPDOC ---
PM&R Progress Note DATE OF SERVICE: Feb 19, 2019 Charger Progress Note Subjective: Patient seen in his bed stating he is trying to work on stretching his left arm. He was instructed in ways to activate his quads by pushing his left knee down and extending his leg against the foot of the bed while using a pillow to help press against. He was able to do this in addition to adduction of his left thigh on multiple tries. REVIEW OF SYSTEMS: The following is a completed review of systems and has been reviewed. Review of systems otherwise unremarkable. PAIN: Patient self reports no pain EYES: No recent vision changes EARS, NOSE, & THROAT: No throat pain +dysphagia CARDIOVASCULAR: Denies chest pain or palpitations PULMONARY: Denies shortness of breath, + weak cough GASTROINTESTINAL: Denies constipation/diarrhea GENITOURINARY: no dysuria or incontinence MUSCULOSKELETAL: left hip replacement NEUROLOGICAL:left sides paresis HEMATOLOGICAL: negative SKIN:peg PSYCHIATRIC: Unremarkable All other review of systems found to be negative. PHYSICAL EXAMINATION: VITAL SIGNS: Please see below. GENERAL: Pleasant and cooperative. No acute distress. HEENT: PERRL. Extraocular movements intact. Clear conjunctiva. left facial droop with tongue deviation to the left CARDIOVASCULAR: Regular rate and rhythm. No murmurs, rubs, or gallops LUNGS: scattered rhonchi ABDOMEN: Soft, nontender, nondistended. Positive bowel sounds. Normal active bow el sounds. +PEG NEUROLOGICAL: Alert and oriented times three. Cranial nerves II, III, IV, V, , VIII grossly intact with deficits in VII, IX-XII on left. Sensation grossly intact in all 4 extremities +clonus 6 beats left foot, +babinski, brisk patellar reflex EXTREMITIES: 5\5 strength right upper extremities. 5\5 strength right lower extremity. flaccid paresis LUE, 2/5 hip flexion, knee extension, adduction, 0/5 ankle DF and EHL, 0/5 plantar flexion ASSESSMENT:68-year-old M with past medical history of HTN, DM, HLD who presents status post right pontine stroke PLAN: 1. Rehab: PT- improve gait, strengthen LLE, stretch heel cords, improve balance and endurance, multipodus when in bed, c/u NMES and encourage compensatory stretegies like circumduction/hip hiking to advance left leg OT- teach ADl management with use of right arm, strengthen/stretch/preserve ROM LUE, splinting, and E-stim LANDSCAPER- NPO, c/u oral rinse, advance diet prn with use of FEES or MBS, evaluate for cogntive deficits 2. Neuro: s.p right pontine stroke with dysphagia and dense hemiplegia- c/u secondary stroke prevention ASA, plavix, statin, BP control -c/u Prozac for motor recovery and mood 3. Cardio- pmh HTN c/u BP meds, HTN c/u statin, medicine consulted to assist in management 4. Resp: encourage incentive spirometry, DuoNeb, Guaifenesin, flonase, -CXR with no acute infiltrate, no leukocytosis -oral mouth rinse ordered 5. : monitor PVRs, Ucx negative 6. GI: PPI for ppx, bowel meds for optimal bowl care 7. Endo: pmh DM c/u Januvia and glimepiride with ISS coverage adjust prn, c/u Levemir coverage, metformin 500mg add, medicine recs appreciated -Jevity changed to Glucerna for better glycemic control per RD recs- appreciated 8. Nutrition- c/u tube feeds overnight with midday bolus 9. DVT ppx: heparin and albin, dopplers negative for DVT bilat 10. Dispo: 02/26/19 to home, progressing slowly towards goals Allergies Coded Allergies: No Known Allergies (Verified Allergy, Unknown, 02/14/19) Vital Signs Vital Signs Date Time Temp Pulse Resp B/P (MAP) Pulse Ox O2 Delivery O2 Flow Rate FiO2 02/19/19 14:00 98.0 64 18 121/68 (85) 93 Laboratory Data CBC/BMP Laboratory Tests 02/19/19 06:07 Calcium Level 8.4 L Labs 24H Laboratory Tests 2 02/18/19 17:09: Bedside Glucose (Misc Panel) 182H 02/18/19 21:03: Bedside Glucose (Misc Panel) 208H 02/18/19 23:56: Bedside Glucose (Misc Panel) 245H 02/19/19 06:05: Bedside Glucose (Misc Panel) 307H 02/19/19 06:07: Anion Gap 7L, Glomerular Filtration Rate > 60.0, Blood Urea Nitrogen 19H, Creatinine 0.83, Sodium Level 136, Potassium Level 3.9, Chloride Level 99, Carbon Dioxide Level 30, Calcium Level 8.4L, Magnesium Level 2.0 02/19/19 12:27: Bedside Glucose (Misc Panel) 129H 02/19/19 16:23: Bedside Glucose (Misc Panel) 191H Microbiology Microbiology 02/14/19 Urine Culture - Final, Complete Current Medications Current Medications Current Medications Medications (Trade) Dose Ordered Sig/Hallie Route PRN Reason Start Time Stop Time Status Last Admin Dose Admin Albuterol Sulfate (Proventil Neb) 2.5 mg Q4HP PRN NEB SOB/WHEEZING 02/14/19 13:00 Albuterol/ Ipratropium (Duoneb (Ipr 0.5mg/Alb 2.5mg)) 3 ml RQ6H NEB 02/14/19 20:00 02/19/19 07:10 Aspirin (Aspirin Chewable) 81 mg DAILY PEG 02/15/19 09:00 02/19/19 08:15 Atorvastatin Calcium (Lipitor) 40 mg QHS PEG 02/14/19 21:00 02/18/19 21:40 Clopidogrel Bisulfate (PLAVix) 75 mg DAILY PEG 02/15/19 09:00 05/15/19 09:01 02/19/19 08:15 Dextrose (Dextrose 50%) 25 ml ASDIRECTED PRN IV SEE LABEL COMMENTS 02/14/19 13:00 02/15/19 10:27 DC Dextrose (Dextrose 50%) 25 ml ASDIRECTED PRN IV SEE LABEL COMMENTS 02/15/19 10:15 02/15/19 10:27 DC Docusate Sodium (Colace Liquid) 100 mg BID PO 02/14/19 21:00 02/19/19 08:15 Fluoxetine HCl (PROzac) 20 mg DAILY PO 02/15/19 09:00 02/17/19 14:43 DC 02/17/19 09:22 Fluoxetine HCl (PROzac) 20 mg DAILY@1200 PO 02/18/19 12:00 02/19/19 12:40 Fluoxetine HCl (PROzac) 20 mg QHS PEG 02/15/19 21:00 02/15/19 21:00 DC Glimepiride (Amaryl) 4 mg DAILY@0730 PEG 02/15/19 07:30 02/19/19 08:16 Glucagon (Glucagon) 1 mg ASDIRECTED PRN SC SEE LABEL COMMENTS 02/14/19 13:00 02/15/19 10:27 DC Glucagon (Glucagon) 1 mg ASDIRECTED PRN SC SEE LABEL COMMENTS 02/15/19 10:15 02/15/19 10:27 DC Glucose (Glucose) 16 GM ASDIRECTED PRN PO SEE LABEL COMMENTS 02/14/19 13:00 02/15/19 10:27 DC Glucose (Glucose) 16 GM ASDIRECTED PRN PO SEE LABEL COMMENTS 02/15/19 10:15 02/15/19 10:27 DC Guaifenesin (Robitussin) 5 ml TID PEG 02/14/19 16:00 02/19/19 16:33 Heparin Sodium (Porcine) (Heparin) 5,000 units Q12H SC 02/14/19 21:00 02/19/19 08:16 Home Med (Med Rec Complete!) ASDIRECTED XX 02/14/19 14:15 02/14/19 14:56 DC Insulin Detemir (Levemir Insulin) 10 units QHS GA 02/16/19 21:00 02/18/19 14:40 DC 02/17/19 21:37 Insulin Detemir (Levemir Insulin) 15 units QHS SC 02/18/19 21:00 02/18/19 21:40 Insulin Human Lispro (HumaLOG INSULIN) SEE PROTOCOL TABLE AC GA 02/14/19 17:30 02/15/19 10:14 DC 02/14/19 19:48 Insulin Human Lispro (HumaLOG INSULIN) SEE PROTOCOL TABLE ASDIRECTED GA 02/15/19 12:00 02/15/19 12:00 DC Insulin Human Lispro (HumaLOG INSULIN) SEE PROTOCOL TABLE Q6H GA 02/15/19 12:00 02/19/19 12:40 Insulin Human Lispro (HumaLOG INSULIN) SEE PROTOCOL TABLE QHS GA 02/14/19 21:00 02/15/19 10:14 DC Lansoprazole (First-Lansoprazole Oral Suspension) 30 mg DAILY PEG 02/14/19 09:00 02/19/19 08:16 Lidocaine/ Diphenhydr/Alum/ Mg/Simeth (Magic Mouthwash) 5ml ASDIRECTED SSP 02/14/19 13:00 02/19/19 13:56 DC Lidocaine/ Diphenhydr/Alum/ Mg/Simeth (Magic Mouthwash) 5ml QID SSP 02/19/19 14:00 02/19/19 16:34 Meclizine HCl (Antivert) 25 mg Q8HP PRN PEG DIZZINESS 02/14/19 13:00 02/16/19 08:23 Metformin HCl (Glucophage Xr) 500 mg DAILY@18 PO 02/19/19 18:00 Metoprolol Tartrate (Lopressor) 25 mg BID PEG 02/14/19 21:00 02/19/19 08:16 Omeprazole (PriLOSEC) 20 mg DAILY XX 02/15/19 09:00 02/15/19 09:00 DC Ramipril (Altace) 2.5 mg DAILY PEG 02/15/19 09:00 02/19/19 08:15 Ramipril (Altace) 2.5 mg DAILY PEG 02/15/19 09:00 Cancel Saliva Substitute (Mouthkote) 1 sprays QID MT 02/18/19 17:00 02/19/19 16:34 Sitagliptin Phosphate (Januvia) 100 mg DAILY PEG 02/15/19 09:00 02/19/19 08:14 Trazodone HCl (Desyrel) 25 mg QHS PEG 02/17/19 21:00 UNV Trazodone HCl (Desyrel) 25 mg QHS PO 02/17/19 21:00 02/18/19 21:40 NAJMA DURBIN MD Feb 19, 2019 16:44
[2019-02-19] MEDS: metFORMIN XR 500MG TAB *GLUCOPHAGE XR PO SCH (17:48)
[2019-02-19 20:00] VITALS: BP 116/66
[2019-02-19] MEDS: traZODone 25MG PER 1/2 TABLET PO SCH (20:36)
[2019-02-19] MEDS: ATORVASTATIN 20 MG TAB PEG SCH (20:37)
[2019-02-19] MEDS: LEVEMIR (INSULIN DETEMIR) 1 UNITS/0.01ML SC SCH (21:01)
[2019-02-20] MEDS: HumaLOG INSULIN (NovoLOG) PER UNIT SC SCH ×4 (00:08→18:01)
[2019-02-20] MEDS: IPRATROPIUM 0.5MG/ALBUTEROL 2.5MG INH SOL UD 3ML (DUONEB)(J7620) NEB SCH ×4 (02:15→22:00)
[2019-02-20 05:24] LABS: HEMOGLOBIN 15.8 g/dl (13.5-17.5); MEAN CORPUSCULAR HEMOGLOBIN 28.7 pg (27.0-33.0); MEAN CORPUSCULAR HGB CONC 32.9 g/dl (32.0-36.5); MEAN CORPUSCULAR VOLUME 87.3 fl (80.0-96.0); PLATELET COUNT, AUTOMATED 204 10^3/uL (150-450); WHITE BLOOD COUNT 5.6 10^3/uL (4.0-10.0)
[2019-02-20 05:49] LABS: BLOOD UREA NITROGEN 22 MG/DL (7-18); CARBON DIOXIDE LEVEL 29 MEQ/L (21-32); CHLORIDE LEVEL 101 MEQ/L (98-107); CREATININE FOR GFR 0.82 MG/DL (0.70-1.30); GLOMERULAR FILTRATION RATE > 60.0 (>49); GLUCOSE, FASTING 179 MG/DL (70-100); POTASSIUM SERUM 4.1 MEQ/L (3.5-5.1); SODIUM LEVEL 137 MEQ/L (136-145)
[2019-02-20 06:00] VITALS: BP 124/62
[2019-02-20] MEDS: guaiFENesin SYRUP 200 MG/10 ML UDC PEG SCH ×3 (08:00→21:31)
[2019-02-20] MEDS: GLIMEPIRIDE 2 MG TAB PEG SCH (08:01)
[2019-02-20] MEDS: LANSOPRAZOLE SUSPENSION 30 MG/10 ML ORAL SYRINGE (FIRST-LANSOPRAZOLE) PEG SCH (08:01)
[2019-02-20] MEDS: CLOPIDOGREL 75 MG TAB PEG SCH (08:01)
[2019-02-20] MEDS: DOCUSATE SOD LIQ 100MG/10ML UDC PO SCH ×2 (08:01→21:31)
[2019-02-20] MEDS: SITagliptin 50 MG TAB (JANUVIA) PEG SCH (08:01)
[2019-02-20] MEDS: ASPIRIN 81 MG CHEW TABLET PEG SCH (08:01)
[2019-02-20] MEDS: HEPARIN SOD (PORCINE) 5000 UNITS/ML VIAL SC SCH ×2 (08:01→21:32)
[2019-02-20] MEDS: METOPROLOL TART 25 MG TABLET PEG SCH ×2 (08:02→21:00)
[2019-02-20] MEDS: ramipriL 1.25 MG CAP PEG SCH (08:03)
[2019-02-20] MEDS: MAGIC MOUTHWASH SUSPENSION BTL SSP SCH ×4 (08:03→21:32)
[2019-02-20] MEDS: SALIVA SUBSTITUTE(MOUTHKOTE) BTL MT SCH ×4 (08:03→21:33)
[2019-02-20] MEDS: FLUoxetine 20 MG CAP PO SCH (12:48)
[2019-02-20 14:00] VITALS: BP 122/69
[2019-02-20] MEDS: metFORMIN XR 500MG TAB *GLUCOPHAGE XR PO SCH (18:00)
[2019-02-20] MEDS: metFORMIN (GLUCOPHAGE) 500 MG TAB PO SCH (18:19)
[2019-02-20 21:00] VITALS: BP 122/81
[2019-02-20] MEDS: ATORVASTATIN 20 MG TAB PEG SCH (21:31)
[2019-02-20] MEDS: traZODone 25MG PER 1/2 TABLET PO SCH (21:31)
[2019-02-20] MEDS: LEVEMIR (INSULIN DETEMIR) 1 UNITS/0.01ML SC SCH (21:33)
[2019-02-21] MEDS: HumaLOG INSULIN (NovoLOG) PER UNIT SC SCH ×4 (00:26→18:12)
[2019-02-21 06:00] VITALS: BP 103/56
[2019-02-21] MEDS: ASPIRIN 81 MG CHEW TABLET PEG SCH (08:08)
[2019-02-21] MEDS: HEPARIN SOD (PORCINE) 5000 UNITS/ML VIAL SC SCH ×2 (08:08→21:20)
[2019-02-21] MEDS: LANSOPRAZOLE SUSPENSION 30 MG/10 ML ORAL SYRINGE (FIRST-LANSOPRAZOLE) PEG SCH (08:08)
[2019-02-21] MEDS: guaiFENesin SYRUP 200 MG/10 ML UDC PEG SCH ×3 (08:08→21:20)
[2019-02-21] MEDS: ramipriL 1.25 MG CAP PEG SCH ×2 (08:09→08:12)
[2019-02-21] MEDS: GLIMEPIRIDE 2 MG TAB PEG SCH (08:09)
[2019-02-21] MEDS: SITagliptin 50 MG TAB (JANUVIA) PEG SCH (08:09)
[2019-02-21] MEDS: CLOPIDOGREL 75 MG TAB PEG SCH (08:10)
[2019-02-21] MEDS: METOPROLOL TART 25 MG TABLET PEG SCH ×3 (08:10→21:00)
[2019-02-21] MEDS: SALIVA SUBSTITUTE(MOUTHKOTE) BTL MT SCH ×4 (08:11→21:20)
[2019-02-21] MEDS: DOCUSATE SOD LIQ 100MG/10ML UDC PO SCH ×2 (08:11→21:19)
[2019-02-21] MEDS: MAGIC MOUTHWASH SUSPENSION BTL SSP SCH ×4 (08:12→21:20)
[2019-02-21] MEDS: IPRATROPIUM 0.5MG/ALBUTEROL 2.5MG INH SOL UD 3ML (DUONEB)(J7620) NEB SCH ×3 (08:23→21:19)
[2019-02-21] MEDS: FLUoxetine 20 MG CAP PO SCH (12:02)
[2019-02-21 14:00] VITALS: BP 115/61
--- NOTE | 2019-02-21 15:43 | IPNPDOC ---
PM&R Progress Note DATE OF SERVICE: Feb 20, 2019 Shelf Drier Operator Progress Note Subjective: Patient seen in his room and was able to slightly engage his left wrist extensor with eccentric contraction. He reports he was able to stand better today and was shown how to work on gluteal exercises. REVIEW OF SYSTEMS: The following is a completed review of systems and has been reviewed. Review of systems otherwise unremarkable. PAIN: Patient self reports no pain EYES: No recent vision changes EARS, NOSE, & THROAT: No throat pain +dysphagia CARDIOVASCULAR: Denies chest pain or palpitations PULMONARY: Denies shortness of breath, + weak cough GASTROINTESTINAL: Denies constipation/diarrhea GENITOURINARY: no dysuria or incontinence MUSCULOSKELETAL: left hip replacement NEUROLOGICAL:left sides paresis HEMATOLOGICAL: negative SKIN:peg PSYCHIATRIC: Unremarkable All other review of systems found to be negative. PHYSICAL EXAMINATION: VITAL SIGNS: Please see below. GENERAL: Pleasant and cooperative. No acute distress. HEENT: PERRL. Extraocular movements intact. Clear conjunctiva. left facial droop with tongue deviation to the left CARDIOVASCULAR: Regular rate and rhythm. No murmurs, rubs, or gallops LUNGS: scattered rhonchi ABDOMEN: Soft, nontender, nondistended. Positive bowel sounds. Normal active bowel sounds. +PEG NEUROLOGICAL: Alert and oriented times three. Cranial nerves II, III, IV, V, , VIII grossly intact with deficits in VII, IX-XII on left. Sensation grossly intact in all 4 extremities +clonus 6 beats left foot, +babinski, brisk patellar reflex EXTREMITIES: 5\5 strength right upper extremities. 5\5 strength right lower extremity. flaccid paresis LUE, 2/5 hip flexion, knee extension, adduction, 0/5 ankle DF and EHL, 0/5 plantar flexion ASSESSMENT:68-year-old M with past medical history of HTN, DM, HLD who presents status post right pontine stroke PLAN: 1. Rehab: PT- improve gait, strengthen LLE, stretch heel cords, improve balance and endurance, multipodus when in bed, c/u NMES and encourage compensatory strategies like circumduction/hip hiking to advance left leg OT- teach ADl management with use of right arm, strengthen/stretch/preserve ROM LUE, splinting, and E-stim HOSPITAL PHARMACIST- NPO, c/u oral rinse, advance diet prn with use of FEES or MBS, evaluate for cognitive deficits 2. Neuro: s.p right pontine stroke with dysphagia and dense hemiplegia- c/u secondary stroke prevention ASA, plavix, statin, BP control -c/u Prozac for motor recovery and mood 3. Cardio- pmh HTN c/u BP meds, HTN c/u statin, medicine consulted to assist in management 4. Resp: encourage incentive spirometry, DuoNeb, Guaifenesin, flonase, -CXR with no acute infiltrate, no leukocytosis -oral mouth rinse ordered 5. : monitor PVRs, Ucx negative 6. GI: PPI for ppx, bowel meds for optimal bowl care 7. Endo: pmh DM c/u Januvia and glimepiride with ISS coverage adjust prn, c/u Levemir coverage, metformin 500mg add, medicine recs appreciated -c/u Glucerna for better glycemic control per RD recs- appreciated 8. Nutrition- c/u tube feeds overnight with midday bolus 9. DVT ppx: heparin and albin, dopplers negative for DVT bilat 10. Dispo: 02/26/19 to home, progressing slowly towards goals Allergies Coded Allergies: No Known Allergies (Verified Allergy, Unknown, 02/14/19) Vital Signs Vital Signs Date Time Temp Pulse Resp B/P (MAP) Pulse Ox O2 Delivery O2 Flow Rate FiO2 02/21/19 14:00 97.2 59 18 115/61 (79) 100 Laboratory Data Labs 24H Laboratory Tests 2 02/20/19 17:50: Bedside Glucose (Misc Panel) 137H 02/21/19 00:19: Bedside Glucose (Misc Panel) 116H 02/21/19 06:23: Bedside Glucose (Misc Panel) 150H 02/21/19 11:49: Bedside Glucose (Misc Panel) 117H Microbiology Microbiology 02/14/19 Urine Culture - Final, Complete Current Medications Current Medications Current Medications Medications (Trade) Dose Ordered Sig/Hallie Route PRN Reason Start Time Stop Time Status Last Admin Dose Admin Albuterol Sulfate (Proventil Neb) 2.5 mg Q4HP PRN NEB SOB/WHEEZING 02/14/19 13:00 Albuterol/ Ipratropium (Duoneb (Ipr 0.5mg/Alb 2.5mg)) 3 ml RQ6H NEB 02/14/19 20:00 02/21/19 13:04 Aspirin (Aspirin Chewable) 81 mg DAILY PEG 02/15/19 09:00 02/21/19 08:08 Atorvastatin Calcium (Lipitor) 40 mg QHS PEG 02/14/19 21:00 02/20/19 21:31 Clopidogrel Bisulfate (PLAVix) 75 mg DAILY PEG 02/15/19 09:00 05/15/19 09:01 02/21/19 08:10 Dextrose (Dextrose 50%) 25 ml ASDIRECTED PRN IV SEE LABEL COMMENTS 02/14/19 13:00 02/15/19 10:27 DC Dextrose (Dextrose 50%) 25 ml ASDIRECTED PRN IV SEE LABEL COMMENTS 02/15/19 10:15 02/15/19 10:27 DC Docusate Sodium (Colace Liquid) 100 mg BID PO 02/14/19 21:00 02/21/19 08:11 Fluoxetine HCl (PROzac) 20 mg DAILY PO 02/15/19 09:00 02/17/19 14:43 DC 02/17/19 09:22 Fluoxetine HCl (PROzac) 20 mg DAILY@1200 PO 02/18/19 12:00 02/21/19 12:02 Fluoxetine HCl (PROzac) 20 mg QHS PEG 02/15/19 21:00 02/15/19 21:00 DC Glimepiride (Amaryl) 4 mg DAILY@0730 PEG 02/15/19 07:30 02/21/19 08:09 Glucagon (Glucagon) 1 mg ASDIRECTED PRN SC SEE LABEL COMMENTS 02/14/19 13:00 02/15/19 10:27 DC Glucagon (Glucagon) 1 mg ASDIRECTED PRN SC SEE LABEL COMMENTS 02/15/19 10:15 02/15/19 10:27 DC Glucose (Glucose) 16 GM ASDIRECTED PRN PO SEE LABEL COMMENTS 02/14/19 13:00 02/15/19 10:27 DC Glucose (Glucose) 16 GM ASDIRECTED PRN PO SEE LABEL COMMENTS 02/15/19 10:15 02/15/19 10:27 DC Guaifenesin (Robitussin) 5 ml TID PEG 02/14/19 16:00 02/21/19 08:08 Heparin Sodium (Porcine) (Heparin) 5,000 units Q12H SC 02/14/19 21:00 02/21/19 08:08 Home Med (Med Rec Complete!) ASDIRECTED XX 02/14/19 14:15 02/14/19 14:56 DC Insulin Detemir (Levemir Insulin) 10 units QHS CA 02/16/19 21:00 02/18/19 14:40 DC 02/17/19 21:37 Insulin Detemir (Levemir Insulin) 15 units QHS CA 02/18/19 21:00 02/20/19 21:33 Insulin Human Lispro (HumaLOG INSULIN) SEE PROTOCOL TABLE AC CA 02/14/19 17:30 02/15/19 10:14 DC 02/14/19 19:48 Insulin Human Lispro (HumaLOG INSULIN) SEE PROTOCOL TABLE ASDIRECTED CA 02/15/19 12:00 02/15/19 12:00 DC Insulin Human Lispro (HumaLOG INSULIN) SEE PROTOCOL TABLE Q6H CA 02/15/19 12:00 02/21/19 12:03 Insulin Human Lispro (HumaLOG INSULIN) SEE PROTOCOL TABLE QHS CA 02/14/19 21:00 02/15/19 10:14 DC Lansoprazole (First-Lansoprazole Oral Suspension) 30 mg DAILY PEG 02/14/19 09:00 02/21/19 08:08 Lidocaine/ Diphenhydr/Alum/ Mg/Simeth (Magic Mouthwash) 5ml ASDIRECTED SSP 02/14/19 13:00 02/19/19 13:56 DC Lidocaine/ Diphenhydr/Alum/ Mg/Simeth (Magic Mouthwash) 5ml QID SSP 02/19/19 14:00 02/21/19 12:04 Meclizine HCl (Antivert) 25 mg Q8HP PRN PEG DIZZINESS 02/14/19 13:00 02/16/19 08:23 Metformin HCl (Glucophage Xr) 500 mg DAILY@18 PO 02/19/19 18:00 02/20/19 18:10 DC 02/19/19 17:48 Metformin HCl (Glucophage) 500 mg DAILY@18 PO 02/20/19 18:00 02/20/19 18:19 Metoprolol Tartrate (Lopressor) 25 mg BID PEG 02/14/19 21:00 02/19/19 20:36 Omeprazole (PriLOSEC) 20 mg DAILY XX 02/15/19 09:00 02/15/19 09:00 DC Ramipril (Altace) 2.5 mg DAILY PEG 02/15/19 09:00 02/20/19 08:03 Ramipril (Altace) 2.5 mg DAILY PEG 02/15/19 09:00 Cancel Saliva Substitute (Mouthkote) 1 sprays QID MT 02/18/19 17:00 02/21/19 12:04 Sitagliptin Phosphate (Januvia) 100 mg DAILY PEG 02/15/19 09:00 02/21/19 08:09 Trazodone HCl (Desyrel) 25 mg QHS PEG 02/17/19 21:00 UNV Trazodone HCl (Desyrel) 25 mg QHS PO 02/17/19 21:00 02/20/19 21:31 NAJMA DURBIN MD Feb 21, 2019 15:43
--- NOTE | 2019-02-21 15:46 | IPNPDOC ---
PM&R Progress Note DATE OF SERVICE: Feb 21, 2019 Supervisory Civil Engineer Progress Note Subjective: Patient seen in his room stating he was able to take some steps today and feels he is getting stronger. REVIEW OF SYSTEMS: The following is a completed review of systems and has been reviewed. Review of systems otherwise unremarkable. PAIN: Patient self reports no pain EYES: No recent vision changes EARS, NOSE, & THROAT: No throat pain +dysphagia CARDIOVASCULAR: Denies chest pain or palpitations PULMONARY: Denies shortness of breath, + weak cough GASTROINTESTINAL: Denies constipation/diarrhea GENITOURINARY: no dysuria or incontinence MUSCULOSKELETAL: left hip replacement NEUROLOGICAL:left sides paresis HEMATOLOGICAL: negative SKIN:peg PSYCHIATRIC: Unremarkable All other review of systems found to be negative. PHYSICAL EXAMINATION: VITAL SIGNS: Please see below. GENERAL: Pleasant and cooperative. No acute distress. HEENT: PERRL. Extraocular movements intact. Clear conjunctiva. left facial droop with tongue deviation to the left CARDIOVASCULAR: Regular rate and rhythm. No murmurs, rubs, or gallops LUNGS: scattered rhonchi ABDOMEN: Soft, nontender, nondistended. Positive bowel sounds. Normal active bowel sounds. +PEG NEUROLOGICAL: Alert and oriented times three. Cranial nerves II, III, IV, V, , VIII grossly intact with deficits in VII, IX-XII on left. Sensation grossly intact in all 4 extremities +clonus 6 beats left foot, +babinski, brisk patellar reflex EXTREMITIES: 5\5 strength right upper extremities. 5\5 strength right lower extremity. flaccid paresis LUE, 2/5 hip flexion, knee extension, adduction, 0/5 ankle DF and EHL, 0/5 plantar flexion ASSESSMENT:68-year-old M with past medical history of HTN, DM, HLD who presents status post right pontine stroke PLAN: 1. Rehab: PT- improve gait, strengthen LLE, stretch heel cords, improve balance and endurance, multipodus when in bed, c/u NMES and encourage compensatory strategies like circumduction/hip hiking to advance left leg OT- teach ADl management with use of right arm, strengthen/stretch/preserve ROM LUE, splinting, and E-stim EXAMINING OFFICER- NPO, c/u oral rinse, advance diet prn with use of FEES or MBS, evaluate for cognitive deficits 2. Neuro: s.p right pontine stroke with dysphagia and dense hemiplegia- c/u secondary stroke prevention ASA, plavix, statin, BP control -c/u Prozac for motor recovery and mood 3. Cardio- pmh HTN c/u BP meds, HTN c/u statin, medicine consulted to assist in management 4. Resp: encourage incentive spirometry, DuoNeb, Guaifenesin, flonase, -CXR with no acute infiltrate, no leukocytosis -oral mouth rinse ordered 5. : monitor PVRs, Ucx negative 6. GI: PPI for ppx, bowel meds for optimal bowl care 7. Endo: pmh DM c/u Januvia and glimepiride with ISS coverage adjust prn, c/u Levemir coverage, metformin 500mg add, medicine recs appreciated -c/u Glucerna for better glycemic control per RD recs- appreciated 8. Nutrition- c/u tube feeds overnight with midday bolus 9. DVT ppx: heparin and albin, dopplers negative for DVT bilat 10. Dispo: 02/26/19 to home, progressing slowly towards goals Allergies Coded Allergies: No Known Allergies (Verified Allergy, Unknown, 02/14/19) Vital Signs Vital Signs Date Time Temp Pulse Resp B/P (MAP) Pulse Ox O2 Delivery O2 Flow Rate FiO2 02/21/19 14:00 97.2 59 18 115/61 (79) 100 Laboratory Data Labs 24H Laboratory Tests 2 02/20/19 17:50: Bedside Glucose (Misc Panel) 137H 02/21/19 00:19: Bedside Glucose (Misc Panel) 116H 02/21/19 06:23: Bedside Glucose (Misc Panel) 150H 02/21/19 11:49: Bedside Glucose (Misc Panel) 117H Microbiology Microbiology 02/14/19 Urine Culture - Final, Complete Current Medications Current Medications Current Medications Medications (Trade) Dose Ordered Sig/Hallie Route PRN Reason Start Time Stop Time Status Last Admin Dose Admin Albuterol Sulfate (Proventil Neb) 2.5 mg Q4HP PRN NEB SOB/WHEEZING 02/14/19 13:00 Albuterol/ Ipratropium (Duoneb (Ipr 0.5mg/Alb 2.5mg)) 3 ml RQ6H NEB 02/14/19 20:00 02/21/19 13:04 Aspirin (Aspirin Chewable) 81 mg DAILY PEG 02/15/19 09:00 02/21/19 08:08 Atorvastatin Calcium (Lipitor) 40 mg QHS PEG 02/14/19 21:00 02/20/19 21:31 Clopidogrel Bisulfate (PLAVix) 75 mg DAILY PEG 02/15/19 09:00 05/15/19 09:01 02/21/19 08:10 Dextrose (Dextrose 50%) 25 ml ASDIRECTED PRN IV SEE LABEL COMMENTS 02/14/19 13:00 02/15/19 10:27 DC Dextrose (Dextrose 50%) 25 ml ASDIRECTED PRN IV SEE LABEL COMMENTS 02/15/19 10:15 02/15/19 10:27 DC Docusate Sodium (Colace Liquid) 100 mg BID PO 02/14/19 21:00 02/21/19 08:11 Fluoxetine HCl (PROzac) 20 mg DAILY PO 02/15/19 09:00 02/17/19 14:43 DC 02/17/19 09:22 Fluoxetine HCl (PROzac) 20 mg DAILY@1200 PO 02/18/19 12:00 02/21/19 12:02 Fluoxetine HCl (PROzac) 20 mg QHS PEG 02/15/19 21:00 02/15/19 21:00 DC Glimepiride (Amaryl) 4 mg DAILY@0730 PEG 02/15/19 07:30 02/21/19 08:09 Glucagon (Glucagon) 1 mg ASDIRECTED PRN SC SEE LABEL COMMENTS 02/14/19 13:00 02/15/19 10:27 DC Glucagon (Glucagon) 1 mg ASDIRECTED PRN SC SEE LABEL COMMENTS 02/15/19 10:15 02/15/19 10:27 DC Glucose (Glucose) 16 GM ASDIRECTED PRN PO SEE LABEL COMMENTS 02/14/19 13:00 02/15/19 10:27 DC Glucose (Glucose) 16 GM ASDIRECTED PRN PO SEE LABEL COMMENTS 02/15/19 10:15 02/15/19 10:27 DC Guaifenesin (Robitussin) 5 ml TID PEG 02/14/19 16:00 02/21/19 08:08 Heparin Sodium (Porcine) (Heparin) 5,000 units Q12H SC 02/14/19 21:00 02/21/19 08:08 Home Med (Med Rec Complete!) ASDIRECTED XX 02/14/19 14:15 02/14/19 14:56 DC Insulin Detemir (Levemir Insulin) 10 units QHS [place] 02/16/19 21:00 02/18/19 14:40 DC 02/17/19 21:37 Insulin Detemir (Levemir Insulin) 15 units QHS [place] 02/18/19 21:00 02/20/19 21:33 Insulin Human Lispro (HumaLOG INSULIN) SEE PROTOCOL TABLE AC [place] 02/14/19 17:30 02/15/19 10:14 DC 02/14/19 19:48 Insulin Human Lispro (HumaLOG INSULIN) SEE PROTOCOL TABLE ASDIRECTED [place] 02/15/19 12:00 02/15/19 12:00 DC Insulin Human Lispro (HumaLOG INSULIN) SEE PROTOCOL TABLE Q6H NJ 02/15/19 12:00 02/21/19 12:03 Insulin Human Lispro (HumaLOG INSULIN) SEE PROTOCOL TABLE QHS NJ 02/14/19 21:00 02/15/19 10:14 DC Lansoprazole (First-Lansoprazole Oral Suspension) 30 mg DAILY PEG 02/14/19 09:00 02/21/19 08:08 Lidocaine/ Diphenhydr/Alum/ Mg/Simeth (Magic Mouthwash) 5ml ASDIRECTED SSP 02/14/19 13:00 02/19/19 13:56 DC Lidocaine/ Diphenhydr/Alum/ Mg/Simeth (Magic Mouthwash) 5ml QID SSP 02/19/19 14:00 02/21/19 12:04 Meclizine HCl (Antivert) 25 mg Q8HP PRN PEG DIZZINESS 02/14/19 13:00 02/16/19 08:23 Metformin HCl (Glucophage Xr) 500 mg DAILY@18 PO 02/19/19 18:00 02/20/19 18:10 DC 02/19/19 17:48 Metformin HCl (Glucophage) 500 mg DAILY@18 PO 02/20/19 18:00 02/20/19 18:19 Metoprolol Tartrate (Lopressor) 25 mg BID PEG 02/14/19 21:00 02/19/19 20:36 Omeprazole (PriLOSEC) 20 mg DAILY XX 02/15/19 09:00 02/15/19 09:00 DC Ramipril (Altace) 2.5 mg DAILY PEG 02/15/19 09:00 02/20/19 08:03 Ramipril (Altace) 2.5 mg DAILY PEG 02/15/19 09:00 Cancel Saliva Substitute (Mouthkote) 1 sprays QID MT 02/18/19 17:00 02/21/19 12:04 Sitagliptin Phosphate (Januvia) 100 mg DAILY PEG 02/15/19 09:00 02/21/19 08:09 Trazodone HCl (Desyrel) 25 mg QHS PEG 02/17/19 21:00 UNV Trazodone HCl (Desyrel) 25 mg QHS PO 02/17/19 21:00 02/20/19 21:31 NAJMA DURBIN MD Feb 21, 2019 15:46
[2019-02-21] MEDS: metFORMIN (GLUCOPHAGE) 500 MG TAB PO SCH (18:12)
[2019-02-21 20:00] VITALS: BP 129/63
[2019-02-21] MEDS: ATORVASTATIN 20 MG TAB PEG SCH (21:20)
[2019-02-21] MEDS: traZODone 25MG PER 1/2 TABLET PO SCH (21:20)
[2019-02-21] MEDS: LEVEMIR (INSULIN DETEMIR) 1 UNITS/0.01ML SC SCH (21:21)
[2019-02-22] MEDS: HumaLOG INSULIN (NovoLOG) PER UNIT SC SCH ×4 (00:33→17:16)
[2019-02-22] MEDS: IPRATROPIUM 0.5MG/ALBUTEROL 2.5MG INH SOL UD 3ML (DUONEB)(J7620) NEB SCH ×3 (07:28→20:38)
[2019-02-22] MEDS: ASPIRIN 81 MG CHEW TABLET PEG SCH (09:01)
[2019-02-22] MEDS: SITagliptin 50 MG TAB (JANUVIA) PEG SCH (09:01)
[2019-02-22] MEDS: GLIMEPIRIDE 2 MG TAB PEG SCH (09:01)
[2019-02-22] MEDS: DOCUSATE SOD LIQ 100MG/10ML UDC PO SCH ×2 (09:01→20:26)
[2019-02-22] MEDS: CLOPIDOGREL 75 MG TAB PEG SCH (09:01)
[2019-02-22] MEDS: guaiFENesin SYRUP 200 MG/10 ML UDC PEG SCH ×3 (09:02→20:26)
[2019-02-22] MEDS: HEPARIN SOD (PORCINE) 5000 UNITS/ML VIAL SC SCH ×2 (09:02→20:26)
[2019-02-22] MEDS: LANSOPRAZOLE SUSPENSION 30 MG/10 ML ORAL SYRINGE (FIRST-LANSOPRAZOLE) PEG SCH (09:04)
[2019-02-22] MEDS: METOPROLOL TART 25 MG TABLET PEG SCH ×2 (09:04→20:26)
[2019-02-22] MEDS: ramipriL 1.25 MG CAP PEG SCH (09:05)
[2019-02-22] MEDS: MAGIC MOUTHWASH SUSPENSION BTL SSP SCH ×4 (09:06→20:28)
[2019-02-22] MEDS: SALIVA SUBSTITUTE(MOUTHKOTE) BTL MT SCH ×4 (09:06→20:28)
[2019-02-22] MEDS: FLUoxetine 20 MG CAP PO SCH (12:34)
[2019-02-22 14:00] VITALS: BP 121/78
[2019-02-22 15:33] LABS: BASO # 0.1 10^3/uL (0.0-0.2); BASO % 0.7 % (0.0-1.0); EOS # 0.1 10^3/uL (0.0-0.50); EOS % 2.1 % (0.0-3.0); HEMOGLOBIN 15.8 g/dl (13.5-17.5); LYMPH # 1.1 10^3/uL (1.5-4.5); MEAN CORPUSCULAR HEMOGLOBIN 28.7 pg (27.0-33.0); MEAN CORPUSCULAR HGB CONC 32.9 g/dl (32.0-36.5); MEAN CORPUSCULAR VOLUME 87.1 fl (80.0-96.0); MONO # 0.6 10^3/uL (0.0-0.8); MONO % 9.4 % (0.0-5.0); NEUTROPHILS # 4.8 10^3/uL (1.8-7.7); NEUTROPHILS % 71.5 % (36.0-66.0); PLATELET COUNT, AUTOMATED 230 10^3/uL (150-450); RED BLOOD COUNT 5.51 10^6/uL (4.30-6.10); WHITE BLOOD COUNT 6.7 10^3/uL (4.0-10.0)
[2019-02-22 16:00] LABS: BLOOD UREA NITROGEN 21 MG/DL (7-18); CALCIUM LEVEL 9.2 MG/DL (8.8-10.2); CARBON DIOXIDE LEVEL 32 MEQ/L (21-32); CHLORIDE LEVEL 99 MEQ/L (98-107); CREATININE FOR GFR 0.83 MG/DL (0.70-1.30); GLOMERULAR FILTRATION RATE > 60.0 (>49); GLUCOSE, FASTING 140 MG/DL (70-100); SODIUM LEVEL 134 MEQ/L (136-145)
[2019-02-22] MEDS: metFORMIN (GLUCOPHAGE) 500 MG TAB PO SCH (17:16)
[2019-02-22 20:00] VITALS: BP 129/69
[2019-02-22] MEDS: traZODone 25MG PER 1/2 TABLET PO SCH (20:26)
[2019-02-22] MEDS: ATORVASTATIN 20 MG TAB PEG SCH (20:26)
[2019-02-22] MEDS: LEVEMIR (INSULIN DETEMIR) 1 UNITS/0.01ML SC SCH (20:27)
[2019-02-23] MEDS: HumaLOG INSULIN (NovoLOG) PER UNIT SC SCH ×4 (00:13→18:00)
[2019-02-23] MEDS: IPRATROPIUM 0.5MG/ALBUTEROL 2.5MG INH SOL UD 3ML (DUONEB)(J7620) NEB SCH ×4 (02:00→19:51)
[2019-02-23 05:41] VITALS: BP 119/61
[2019-02-23] MEDS: ramipriL 1.25 MG CAP PEG SCH (11:35)
[2019-02-23] MEDS: GLIMEPIRIDE 2 MG TAB PEG SCH (11:36)
[2019-02-23] MEDS: LANSOPRAZOLE SUSPENSION 30 MG/10 ML ORAL SYRINGE (FIRST-LANSOPRAZOLE) PEG SCH (11:36)
[2019-02-23] MEDS: ASPIRIN 81 MG CHEW TABLET PEG SCH (11:36)
[2019-02-23] MEDS: SITagliptin 50 MG TAB (JANUVIA) PEG SCH (11:36)
[2019-02-23] MEDS: METOPROLOL TART 25 MG TABLET PEG SCH ×2 (11:37→21:00)
[2019-02-23] MEDS: DOCUSATE SOD LIQ 100MG/10ML UDC PO SCH ×2 (11:37→21:10)
[2019-02-23] MEDS: CLOPIDOGREL 75 MG TAB PEG SCH (11:37)
[2019-02-23] MEDS: guaiFENesin SYRUP 200 MG/10 ML UDC PEG SCH ×3 (11:38→21:10)
[2019-02-23] MEDS: HEPARIN SOD (PORCINE) 5000 UNITS/ML VIAL SC SCH ×2 (11:38→21:10)
[2019-02-23] MEDS: MAGIC MOUTHWASH SUSPENSION BTL SSP SCH ×4 (11:39→21:13)
[2019-02-23] MEDS: SALIVA SUBSTITUTE(MOUTHKOTE) BTL MT SCH ×4 (11:39→21:13)
[2019-02-23] MEDS: FLUoxetine 20 MG CAP PO SCH (13:03)
[2019-02-23 14:00] VITALS: BP 106/57
[2019-02-23] MEDS: metFORMIN (GLUCOPHAGE) 500 MG TAB PO SCH (17:05)
[2019-02-23] MEDS: traZODone 25MG PER 1/2 TABLET PO SCH (21:11)
[2019-02-23] MEDS: LEVEMIR (INSULIN DETEMIR) 1 UNITS/0.01ML SC SCH (21:11)
[2019-02-23] MEDS: ATORVASTATIN 20 MG TAB PEG SCH (21:11)
[2019-02-23 22:00] VITALS: BP 126/69
[2019-02-24] MEDS: IPRATROPIUM 0.5MG/ALBUTEROL 2.5MG INH SOL UD 3ML (DUONEB)(J7620) NEB SCH ×4 (01:55→20:14)
[2019-02-24 06:00] VITALS: BP 131/74
[2019-02-24] MEDS: HumaLOG INSULIN (NovoLOG) PER UNIT SC SCH ×4 (06:00→18:05)
[2019-02-24] MEDS: DOCUSATE SOD LIQ 100MG/10ML UDC PO SCH ×2 (09:00→21:00)
[2019-02-24] MEDS: SITagliptin 50 MG TAB (JANUVIA) PEG SCH (09:17)
[2019-02-24] MEDS: ASPIRIN 81 MG CHEW TABLET PEG SCH (09:17)
[2019-02-24] MEDS: GLIMEPIRIDE 2 MG TAB PEG SCH (09:17)
[2019-02-24] MEDS: CLOPIDOGREL 75 MG TAB PEG SCH (09:18)
[2019-02-24] MEDS: LANSOPRAZOLE SUSPENSION 30 MG/10 ML ORAL SYRINGE (FIRST-LANSOPRAZOLE) PEG SCH (09:18)
[2019-02-24] MEDS: HEPARIN SOD (PORCINE) 5000 UNITS/ML VIAL SC SCH ×2 (09:18→21:22)
[2019-02-24] MEDS: guaiFENesin SYRUP 200 MG/10 ML UDC PEG SCH ×3 (09:18→21:20)
[2019-02-24] MEDS: ramipriL 1.25 MG CAP PEG SCH (09:20)
[2019-02-24] MEDS: METOPROLOL TART 25 MG TABLET PEG SCH ×2 (09:21→21:00)
[2019-02-24] MEDS: SALIVA SUBSTITUTE(MOUTHKOTE) BTL MT SCH ×4 (09:22→21:22)
[2019-02-24] MEDS: MAGIC MOUTHWASH SUSPENSION BTL SSP SCH ×4 (09:22→21:22)
[2019-02-24] MEDS: FLUoxetine 20 MG CAP PO SCH (12:42)
[2019-02-24 14:00] VITALS: BP 116/63
[2019-02-24] MEDS: metFORMIN (GLUCOPHAGE) 500 MG TAB PO SCH (18:05)
[2019-02-24 20:00] VITALS: BP 125/73
[2019-02-24] MEDS: traZODone 25MG PER 1/2 TABLET PO SCH (21:19)
[2019-02-24] MEDS: ATORVASTATIN 20 MG TAB PEG SCH (21:20)
[2019-02-24] MEDS: LEVEMIR (INSULIN DETEMIR) 1 UNITS/0.01ML SC SCH (21:21)
[2019-02-25] MEDS: IPRATROPIUM 0.5MG/ALBUTEROL 2.5MG INH SOL UD 3ML (DUONEB)(J7620) NEB SCH ×4 (01:40→21:32)
[2019-02-25 06:00] VITALS: BP 125/66
[2019-02-25] MEDS: HumaLOG INSULIN (NovoLOG) PER UNIT SC SCH ×4 (06:00→18:59)
[2019-02-25] MEDS: CLOPIDOGREL 75 MG TAB PEG SCH (08:03)
[2019-02-25] MEDS: SITagliptin 50 MG TAB (JANUVIA) PEG SCH (08:03)
[2019-02-25] MEDS: DOCUSATE SOD LIQ 100MG/10ML UDC PO SCH ×2 (08:03→21:46)
[2019-02-25] MEDS: guaiFENesin SYRUP 200 MG/10 ML UDC PEG SCH ×3 (08:03→21:46)
[2019-02-25] MEDS: METOPROLOL TART 25 MG TABLET PEG SCH ×2 (08:04→21:47)
[2019-02-25] MEDS: ASPIRIN 81 MG CHEW TABLET PEG SCH (08:04)
[2019-02-25] MEDS: GLIMEPIRIDE 2 MG TAB PEG SCH (08:04)
[2019-02-25] MEDS: ramipriL 1.25 MG CAP PEG SCH (08:05)
[2019-02-25] MEDS: LANSOPRAZOLE SUSPENSION 30 MG/10 ML ORAL SYRINGE (FIRST-LANSOPRAZOLE) PEG SCH (08:06)
[2019-02-25] MEDS: MAGIC MOUTHWASH SUSPENSION BTL SSP SCH ×4 (08:06→21:47)
[2019-02-25] MEDS: SALIVA SUBSTITUTE(MOUTHKOTE) BTL MT SCH ×4 (08:06→21:49)
[2019-02-25] MEDS: HEPARIN SOD (PORCINE) 5000 UNITS/ML VIAL SC SCH ×2 (08:07→21:48)
[2019-02-25 09:08] LABS: HEMATOCRIT 48.7 % (42.0-52.0); HEMOGLOBIN 16.1 g/dl (13.5-17.5); MEAN CORPUSCULAR HGB CONC 33.1 g/dl (32.0-36.5); MEAN CORPUSCULAR VOLUME 87.7 fl (80.0-96.0); PLATELET COUNT, AUTOMATED 239 10^3/uL (150-450); RED BLOOD COUNT 5.55 10^6/uL (4.30-6.10); WHITE BLOOD COUNT 4.8 10^3/uL (4.0-10.0)
[2019-02-25 09:38] LABS: BLOOD UREA NITROGEN 20 MG/DL (7-18); CALCIUM LEVEL 8.9 MG/DL (8.8-10.2); CARBON DIOXIDE LEVEL 29 MEQ/L (21-32); CHLORIDE LEVEL 99 MEQ/L (98-107); CREATININE FOR GFR 0.77 MG/DL (0.70-1.30); GLOMERULAR FILTRATION RATE > 60.0 (>49); GLUCOSE, FASTING 190 MG/DL (70-100); POTASSIUM SERUM 3.9 MEQ/L (3.5-5.1); SODIUM LEVEL 138 MEQ/L (136-145)
[2019-02-25] MEDS: FLUoxetine 20 MG CAP PO SCH (12:14)
[2019-02-25 14:00] VITALS: BP 108/55
--- NOTE | 2019-02-25 16:02 | IPNPDOC ---
Date Seen The patient was seen on 02/25/19. Progress Note Subjective: doing well with his wheelchair. denies sob, chest pain, pressure, tightness, nausea, vomiting. appetite is good, had a bowel movement yesterday. denies any fever, chills, dysuria, urge ncy, frequency. cooperative with physical therapy. no other issues per RN over night. Objective Vitals: pls see below GENERAL: NAD sitting in his wheelchair taking his morning meds. SKIN : Warm, dry intact HEENT: slight expressive aphasia, face is symmetric, tongue is midline. anicteric, no jaundice Atraumatic, normocephalic, moist mucous membrane CARDIOVASCULAR: Irregular rate and rhythm, S1S2, no JVD, bilateral lower extremity edema, distal pulses + palpable RESP: CTAB, no accessory muscle use noted ABDOMEN: PEG tube present. BS+ non distended non tender MS: no joint deformities NEURO: Alert and oriented x 3, left upper and lower extremity hemiplegia LABORATORY DATA, IMAGING STUDIES, MICROBIOLOGY: REVIEWED PLS SEE BELOW. ASSESSMENT/PLAN: CVA with left hemiparesis -continued on ASA, plavix, lipitor, and metoprolol -mgt per rehab team and jewel gauger. Hypertension -on ramipril, metoprolol -adequate bp control and does not need adjustment Type 2 diabetes mellitus -on glimepiride, Januvia, sliding scale with coverage and fingerstick monitoring every 6 hours while on PEG feeds Dysphagia -PEG tube feedings DVT prophylaxis -Heparin subcutaneous VS, I&O, 24H, Fishbone Vital Signs/I&O Vital Signs Date Time Temp Pulse Resp B/P (MAP) Pulse Ox O2 Delivery O2 Flow Rate FiO2 02/25/19 08:04 74 128/70 02/25/19 06:00 96.8 18 95 02/22/19 06:00 132.0 60 I&O- Last 24 Hours up to 6 AM 02/25/19 06:00 Intake Total 2022 ml Balance 2022 ml Laboratory Data 24H LABS Laboratory Tests 2 02/24/19 17:55: Bedside Glucose (Misc Panel) 126H 02/24/19 20:39: Bedside Glucose (Misc Panel) 110 02/24/19 23:58: Bedside Glucose (Misc Panel) 78L 02/25/19 07:44: Bedside Glucose (Misc Panel) 176H 02/25/19 08:24: Nucleated Red Blood Cells % (auto) 0.0, Anion Gap 10, Glomerular Filtration Rate > 60.0, Blood Urea Nitrogen 20H, Creatinine 0.77, Sodium Level 138, Potassium Level 3.9, Chloride Level 99, Carbon Dioxide Level 29, Calcium Level 8.9 02/25/19 12:02: Bedside Glucose (Misc Panel) 95 CBC/BMP Laboratory Tests 02/25/19 08:24 Red Blood Count 5.55, Mean Corpuscular Volume 87.7, Mean Corpuscular Hemoglobin 29.0, Mean Corpuscular Hemoglobin Concent 33.1, Red Cell Distribution Width 12.9, Calcium Level 8.9 PAMELA AUGUSTINE MD Feb 25, 2019 12:15
[2019-02-25] MEDS: metFORMIN (GLUCOPHAGE) 500 MG TAB PO SCH (18:59)
[2019-02-25 20:00] VITALS: BP 143/68
[2019-02-25] MEDS: ATORVASTATIN 20 MG TAB PEG SCH (21:46)
[2019-02-25] MEDS: traZODone 25MG PER 1/2 TABLET PO SCH (21:46)
[2019-02-25] MEDS: LEVEMIR (INSULIN DETEMIR) 1 UNITS/0.01ML SC SCH (21:48)
[2019-02-26] MEDS: HumaLOG INSULIN (NovoLOG) PER UNIT SC SCH ×4 (00:37→18:15)
[2019-02-26] MEDS: IPRATROPIUM 0.5MG/ALBUTEROL 2.5MG INH SOL UD 3ML (DUONEB)(J7620) NEB SCH ×4 (01:29→21:38)
[2019-02-26 06:00] VITALS: BP 118/55
[2019-02-26] MEDS: DOCUSATE SOD LIQ 100MG/10ML UDC PO SCH ×2 (08:56→22:02)
[2019-02-26] MEDS: HEPARIN SOD (PORCINE) 5000 UNITS/ML VIAL SC SCH ×2 (08:56→22:01)
[2019-02-26] MEDS: LANSOPRAZOLE SUSPENSION 30 MG/10 ML ORAL SYRINGE (FIRST-LANSOPRAZOLE) PEG SCH (08:56)
[2019-02-26] MEDS: guaiFENesin SYRUP 200 MG/10 ML UDC PEG SCH ×3 (08:56→22:02)
[2019-02-26] MEDS: SITagliptin 50 MG TAB (JANUVIA) PEG SCH (08:57)
[2019-02-26] MEDS: ramipriL 1.25 MG CAP PEG SCH (08:57)
[2019-02-26] MEDS: GLIMEPIRIDE 2 MG TAB PEG SCH (08:57)
[2019-02-26] MEDS: ASPIRIN 81 MG CHEW TABLET PEG SCH (08:57)
[2019-02-26] MEDS: CLOPIDOGREL 75 MG TAB PEG SCH (08:57)
[2019-02-26] MEDS: SALIVA SUBSTITUTE(MOUTHKOTE) BTL MT SCH ×4 (08:58→22:03)
[2019-02-26] MEDS: METOPROLOL TART 25 MG TABLET PEG SCH ×2 (08:58→21:00)
[2019-02-26] MEDS: MAGIC MOUTHWASH SUSPENSION BTL SSP SCH ×4 (08:58→22:02)
[2019-02-26] MEDS: FLUoxetine 20 MG CAP PO SCH (12:50)
[2019-02-26 14:00] VITALS: BP 108/57
[2019-02-26] MEDS: metFORMIN (GLUCOPHAGE) 500 MG TAB PO SCH (18:14)
[2019-02-26 20:00] VITALS: BP 109/66
--- NOTE | 2019-02-26 21:47 | IPN ---
DATE: 02/26/2019 A 68-year-old male who is status post right pontine stroke with aphasia and hemiplegia. He has a percutaneous endoscopic gastrostomy (PEG) tube in place. He has a history of hypertension. Blood pressure is stable. He has a history of diabetes. Fasting blood sugar this morning 100. He is sitting in his wheelchair. He denies any complaints. OBJECTIVE: Blood pressure 108/57, pulse 62, respirations 17, temperature 97.8. The patient is alert and oriented times three. Pupils equal and react to light. Extraocular muscles intact. Pharynx: Tongue and gums pink and moist. Neck is supple without lymphadenopathy. No thyromegaly. No goiter. Carotids 2+ without bruit. Chest is clear to auscultation without wheeze or retractions. Heart is regular. Abdomen: Benign. PEG tube in place. Bowel sounds positive. Genital/Rectal: Not done. Extremities: No cyanosis, clubbing or edema. Left upper and lower extremity hemiplegia. IMPRESSION/PLAN: CVA with left hemiparesis. Continues on aspirin, Plavix, Lipitor, and metoprolol. Rehab. 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 Hypertension, stable. Continue ramipril and metoprolol as ordered. Type 2 diabetes. On glimepiride, Januvia. Sliding scale as needed. Dysphagia. Continues with PEG tube feedings. Deep vein thrombosis (DVT) prophylaxis. Heparin subcu.
[2019-02-26] MEDS: traZODone 25MG PER 1/2 TABLET PO SCH (22:01)
[2019-02-26] MEDS: ATORVASTATIN 20 MG TAB PEG SCH (22:01)
[2019-02-26] MEDS: LEVEMIR (INSULIN DETEMIR) 1 UNITS/0.01ML SC SCH (22:02)
[2019-02-27] MEDS: HumaLOG INSULIN (NovoLOG) PER UNIT SC SCH ×4 (00:11→17:27)
[2019-02-27] MEDS: IPRATROPIUM 0.5MG/ALBUTEROL 2.5MG INH SOL UD 3ML (DUONEB)(J7620) NEB SCH ×4 (02:00→21:37)
[2019-02-27 06:00] VITALS: BP 105/55
[2019-02-27] MEDS: ASPIRIN 81 MG CHEW TABLET PEG SCH (08:12)
[2019-02-27] MEDS: DOCUSATE SOD LIQ 100MG/10ML UDC PO SCH ×2 (08:12→21:00)
[2019-02-27] MEDS: SITagliptin 50 MG TAB (JANUVIA) PEG SCH (08:12)
[2019-02-27] MEDS: guaiFENesin SYRUP 200 MG/10 ML UDC PEG SCH ×3 (08:12→21:42)
[2019-02-27] MEDS: LANSOPRAZOLE SUSPENSION 30 MG/10 ML ORAL SYRINGE (FIRST-LANSOPRAZOLE) PEG SCH (08:12)
[2019-02-27] MEDS: ramipriL 1.25 MG CAP PEG SCH (08:13)
[2019-02-27] MEDS: CLOPIDOGREL 75 MG TAB PEG SCH (08:14)
[2019-02-27] MEDS: HEPARIN SOD (PORCINE) 5000 UNITS/ML VIAL SC SCH ×2 (08:14→21:47)
[2019-02-27] MEDS: GLIMEPIRIDE 2 MG TAB PEG SCH (08:14)
[2019-02-27] MEDS: METOPROLOL TART 25 MG TABLET PEG SCH ×2 (08:14→21:43)
[2019-02-27] MEDS: MAGIC MOUTHWASH SUSPENSION BTL SSP SCH ×3 (08:15→21:00)
[2019-02-27] MEDS: SALIVA SUBSTITUTE(MOUTHKOTE) BTL MT SCH ×3 (09:00→21:00)
[2019-02-27] MEDS ORDERED: OXYMETAZOLINE NASAL SPRAY (AFRIN) PRN (10:00)
[2019-02-27] MEDS ORDERED: VARIBAR PUDDING 40% w/v 230ML TUBE As Ordered ONE (11:29)
[2019-02-27] MEDS ORDERED: VARIBAR NECTAR 40% w/v 240ML SUSP BTL As Ordered ONE (11:29)
[2019-02-27] MEDS ORDERED: E-Z-PAQUE 96% w/w SUSP 176GM BTL As Ordered ONE (11:30)
[2019-02-27] MEDS ORDERED: BARIUM SULFATE 700 MG TABLET (E-Z-DISK) As Ordered ONE (11:30)
--- NOTE | 2019-02-27 12:42 | IPNPDOC ---
PM&R Progress Note DATE OF SERVICE: Feb 22, 2019 Airplane Designer Progress Note Subjective: Patient seen in his room stating he was able to take steps in the parallel bar. REVIEW OF SYSTEMS: The following is a completed review of systems and has been reviewed. Review of systems otherwise unremarkable. PAIN: Patient self reports no pain EYES: No recent vision changes EARS, NOSE, & THROAT: No throat pain +dysphagia CARDIOVASCULAR: Denies chest pain or palpitations PULMONARY: Denies shortness of breath, + weak cough (improving) GASTROINTESTINAL: Denies constipation/diarrhea GENITOURINARY: no dysuria or incontinence MUSCULOSKELETAL: left hip replacement NEUROLOGICAL:left sides paresis HEMATOLOGICAL: negative SKIN:peg PSYCHIATRIC: Unremarkable All other review of systems found to be negative. PHYSICAL EXAMINATION: VITAL SIGNS: Please see below. GENERAL: Pleasant and cooperative. No acute distress. HEENT: PERRL. Extraocular movements intact. Clear conjunctiva. left facial droop with tongue deviation to the left CARDIOVASCULAR: Regular rate and rhythm. No murmurs, rubs, or gallops LUNGS: scattered rhonchi ABDOMEN: Soft, nontender, nondistended. Positive bowel sounds. Normal active bowel sounds. +PEG NEUROLOGICAL: Alert and oriented times three. Cranial nerves II, III, IV, V, , VIII grossly intact with deficits in VII, IX-XII on left. Sensation grossly intact in all 4 extremities +clonus 6 beats left foot, +babinski, brisk patellar reflex EXTREMITIES: 5\5 strength right upper extremities. 5\5 strength right lower extremity. flaccid paresis LUE, 2/5 hip flexion, knee extension, adduction, 0/5 ankle DF and EHL, 0/5 plantar flexion ASSESSMENT:68-year-old M with past medical history of HTN, DM, HLD who presents status post right pontine stroke PLAN: 1. 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 Neuro: s.p right pontine stroke with dysphagia and dense hemiplegia- c/u secondary stroke prevention ASA, plavix, statin, BP control -c/u Prozac for motor recovery and mood 3. Cardio- pmh HTN c/u BP meds, HTN c/u statin, medicine consulted to assist in management 4. Resp: encourage incentive spirometry, DuoNeb, Guaifenesin, flonase, -CXR with no acute infiltrate, no leukocytosis -oral mouth rinse ordered 5. : monitor PVRs, Ucx negative 6. GI: PPI for ppx, bowel meds for optimal bowl care 7. Endo: pmh DM c/u Januvia and glimepiride with ISS coverage adjust prn, c/u Levemir coverage, metformin 500mg added, medicine recs appreciated -c/u Glucerna for better glycemic control per RD recs- appreciated 8. Nutrition- c/u tube feeds overnight with midday bolus 9. DVT ppx: heparin and albin, dopplers negative for DVT bilat 10. Dispo: 03/12/19 to home, progressing slowly towards goals Allergies Coded Allergies: No Known Allergies (Verified Allergy, Unknown, 02/14/19) Vital Signs Vital Signs Date Time Temp Pulse Resp B/P (MAP) Pulse Ox O2 Delivery O2 Flow Rate FiO2 02/27/19 08:14 64 105/55 02/27/19 06:00 97.3 18 91 02/22/19 06:00 132.0 60 Laboratory Data Labs 24H Laboratory Tests 2 02/26/19 17:45: Bedside Glucose (Misc Panel) 163H 02/27/19 00:07: Bedside Glucose (Misc Panel) 107 02/27/19 06:17: Bedside Glucose (Misc Panel) 153H 02/27/19 12:10: Bedside Glucose (Misc Panel) 87 Current Medications Current Medications Current Medications Medications (Trade) Dose Ordered Sig/Hallie Route PRN Reason Start Time Stop Time Status Last Admin Dose Admin Albuterol Sulfate (Proventil Neb) 2.5 mg Q4HP PRN NEB SOB/WHEEZING 02/14/19 13:00 Albuterol/ Ipratropium (Duoneb (Ipr 0.5mg/Alb 2.5mg)) 3 ml RQ6H NEB 02/14/19 20:00 02/27/19 07:28 Aspirin (Aspirin Chewable) 81 mg DAILY PEG 02/15/19 09:00 02/27/19 08:12 Atorvastatin Calcium (Lipitor) 40 mg QHS PEG 02/14/19 21:00 02/26/19 22:01 Clopidogrel Bisulfate (PLAVix) 75 mg DAILY PEG 02/15/19 09:00 05/15/19 09:01 02/27/19 08:14 Dextrose (Dextrose 50%) 25 ml ASDIRECTED PRN IV SEE LABEL COMMENTS 02/14/19 13:00 02/15/19 10:27 DC Dextrose (Dextrose 50%) 25 ml ASDIRECTED PRN IV SEE LABEL COMMENTS 02/15/19 10:15 02/15/19 10:27 DC Docusate Sodium (Colace Liquid) 100 mg BID PO 02/14/19 21:00 02/27/19 08:12 Fluoxetine HCl (PROzac) 20 mg DAILY PO 02/15/19 09:00 02/17/19 14:43 DC 02/17/19 09:22 Fluoxetine HCl (PROzac) 20 mg DAILY@1200 PO 02/18/19 12:00 02/26/19 12:50 Fluoxetine HCl (PROzac) 20 mg QHS PEG 02/15/19 21:00 02/15/19 21:00 DC Glimepiride (Amaryl) 4 mg DAILY@0730 PEG 02/15/19 07:30 02/27/19 08:14 Glucagon (Glucagon) 1 mg ASDIRECTED PRN SC SEE LABEL COMMENTS 02/14/19 13:00 02/15/19 10:27 DC Glucagon (Glucagon) 1 mg ASDIRECTED PRN SC SEE LABEL COMMENTS 02/15/19 10:15 02/15/19 10:27 DC Glucose (Glucose) 16 GM ASDIRECTED PRN PO SEE LABEL COMMENTS 02/14/19 13:00 02/15/19 10:27 DC Glucose (Glucose) 16 GM ASDIRECTED PRN PO SEE LABEL COMMENTS 02/15/19 10:15 02/15/19 10:27 DC Guaifenesin (Robitussin) 5 ml TID PEG 02/14/19 16:00 02/27/19 08:12 Heparin Sodium (Porcine) (Heparin) 5,000 units Q12H SC 02/14/19 21:00 02/27/19 08:14 Home Med (Med Rec Complete!) ASDIRECTED XX 02/14/19 14:15 02/14/19 14:56 DC Insulin Detemir (Levemir Insulin) 10 units QHS DE 02/16/19 21:00 02/18/19 14:40 DC 02/17/19 21:37 Insulin Detemir (Levemir Insulin) 15 units QHS DE 02/18/19 21:00 02/26/19 22:02 Insulin Human Lispro (HumaLOG INSULIN) SEE PROTOCOL TABLE AC DE 02/14/19 17:30 02/15/19 10:14 DC 02/14/19 19:48 Insulin Human Lispro (HumaLOG INSULIN) SEE PROTOCOL TABLE ASDIRECTED DE 02/15/19 12:00 02/15/19 12:00 DC Insulin Human Lispro (HumaLOG INSULIN) SEE PROTOCOL TABLE Q6H DE 02/15/19 12:00 02/27/19 06:24 Insulin Human Lispro (HumaLOG INSULIN) SEE PROTOCOL TABLE QHS DE 02/14/19 21:00 02/15/19 10:14 DC Lansoprazole (First-Lansoprazole Oral Suspension) 30 mg DAILY PEG 02/14/19 09:00 02/27/19 08:12 Lidocaine/ Diphenhydr/Alum/ Mg/Simeth (Magic Mouthwash) 5ml ASDIRECTED SSP 02/14/19 13:00 02/19/19 13:56 DC Lidocaine/ Diphenhydr/Alum/ Mg/Simeth (Magic Mouthwash) 5ml QID SSP 02/19/19 14:00 02/27/19 08:15 Meclizine HCl (Antivert) 25 mg Q8HP PRN PEG DIZZINESS 02/14/19 13:00 02/16/19 08:23 Metformin HCl (Glucophage Xr) 500 mg DAILY@18 PO 02/19/19 18:00 02/20/19 18:10 DC 02/19/19 17:48 Metformin HCl (Glucophage) 500 mg DAILY@18 PO 02/20/19 18:00 02/26/19 18:14 Metoprolol Tartrate (Lopressor) 25 mg BID PEG 02/14/19 21:00 02/26/19 08:58 Miscellaneous (Unresolved Clarification Entry) SEE LABEL COMMENTS DAILY XX 02/26/19 09:00 02/27/19 07:51 DC Miscellaneous (Unresolved Clarification Entry) SEE LABEL COMMENTS DAILY XX 02/27/19 09:00 02/27/19 09:00 DC Miscellaneous (Unresolved Patient Own Med Order) SEE LABEL COMMENTS DAILY XX 02/25/19 09:00 Omeprazole (PriLOSEC) 20 mg DAILY XX 02/15/19 09:00 02/15/19 09:00 DC Oxymetazoline HCl (Afrin) 2 spray ASDIRECTED PRN NA SEE LABEL COMMENTS 02/27/19 10:00 02/27/19 11:20 DC Patient Own Medication (Patient'S Own Med) pt may use home med at h... DAILY PEG 02/25/19 09:00 UNV Ramipril (Altace) 2.5 mg DAILY PEG 02/15/19 09:00 02/26/19 08:57 Ramipril (Altace) 2.5 mg DAILY PEG 02/15/19 09:00 Cancel Saliva Substitute (Mouthkote) 1 sprays QID MT 02/18/19 17:00 02/27/19 09:00 Sitagliptin Phosphate (Januvia) 100 mg DAILY PEG 02/15/19 09:00 02/27/19 08:12 Trazodone HCl (Desyrel) 25 mg QHS PEG 02/17/19 21:00 UNV Trazodone HCl (Desyrel) 25 mg QHS PO 02/17/19 21:00 02/26/19 22:01 NAJMA DURBIN MD Feb 27, 2019 12:42
--- NOTE | 2019-02-27 12:51 | IPNPDOC ---
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 REVIEW OF SYSTEMS: The following is a completed review of systems and has been reviewed. Review of systems otherwise unremarkable. PAIN: Patient self reports no pain EYES: No recent vision changes EARS, NOSE, & THROAT: No throat pain +dysphagia CARDIOVASCULAR: Denies chest pain or palpitations PULMONARY: Denies shortness of breath, + weak cough (improving) GASTROINTESTINAL: Denies constipation/diarrhea GENITOURINARY: no dysuria or incontinence MUSCULOSKELETAL: left hip replacement NEUROLOGICAL:left sides paresis HEMATOLOGICAL: negative SKIN:peg PSYCHIATRIC: Unremarkable All other review of systems found to be negative. PHYSICAL EXAMINATION: VITAL SIGNS: Please see below. GENERAL: Pleasant and cooperative. No acute distress. HEENT: PERRL. Extraocular movements intact. Clear conjunctiva. left facial droop with tongue deviation to the left CARDIOVASCULAR: Regular rate and rhythm. No murmurs, rubs, or gallops LUNGS: scattered rhonchi ABDOMEN: Soft, nontender, nondistended. Positive bowel sounds. Normal active bowel sounds. +PEG NEUROLOGICAL: Alert and oriented times three. Cranial nerves II, III, IV, V, , VIII grossly intact with deficits in VII, IX-XII on left. Sensation grossly intact in all 4 extremities +clonus 6 beats left foot, +babinski, brisk patellar reflex EXTREMITIES: 5\5 strength right upper extremities. 5\5 strength right lower extremity. flaccid paresis LUE, 2/5 hip flexion, knee extension, adduction, 0/5 ankle DF and EHL, 0/5 plantar flexion ASSESSMENT:68-year-old M with past medical history of HTN, DM, HLD who presents status post right pontine stroke PLAN: 1. 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 Neuro: s.p right pontine stroke with dysphagia and dense hemiplegia- c/u secondary stroke prevention ASA, plavix, statin, BP control -c/u Prozac for motor recovery and mood 3. Cardio- pmh HTN c/u BP meds, HTN c/u statin, medicine consulted to assist in management 4. Resp: encourage incentive spirometry, DuoNeb, Guaifenesin, flonase, -CXR with no acute infiltrate, no leukocytosis -oral mouth rinse ordered 5. : monitor PVRs, Ucx negative 6. GI: PPI for ppx, bowel meds for optimal bowl care 7. Endo: pmh DM c/u Januvia and glimepiride with ISS coverage adjust prn, c/u Levemir coverage, metformin 500mg added, medicine recs appreciated -c/u Glucerna for better glycemic control per RD recs- appreciated 8. Nutrition- c/u tube feeds overnight with midday bolus 9. DVT ppx: heparin and albin, dopplers negative for DVT bilat 10. Dispo: 03/12/19 to home, progressing slowly towards goals Allergies Coded Allergies: No Known Allergies (Verified Allergy, Unknown, 02/14/19) Vital Signs Vital Signs Date Time Temp Pulse Resp B/P (MAP) Pulse Ox O2 Delivery O2 Flow Rate FiO2 02/27/19 08:14 64 105/55 02/27/19 06:00 97.3 18 91 02/22/19 06:00 132.0 60 Laboratory Data Labs 24H Laboratory Tests 2 02/26/19 17:45: Bedside Glucose (Misc Panel) 163H 02/27/19 00:07: Bedside Glucose (Misc Panel) 107 02/27/19 06:17: Bedside Glucose (Misc Panel) 153H 02/27/19 12:10: Bedside Glucose (Misc Panel) 87 Current Medications Current Medications Current Medications Medications (Trade) Dose Ordered Sig/Hallie Route PRN Reason Start Time Stop Time Status Last Admin Dose Admin Albuterol Sulfate (Proventil Neb) 2.5 mg Q4HP PRN NEB SOB/WHEEZING 02/14/19 13:00 Albuterol/ Ipratropium (Duoneb (Ipr 0.5mg/Alb 2.5mg)) 3 ml RQ6H NEB 02/14/19 20:00 02/27/19 07:28 Aspirin (Aspirin Chewable) 81 mg DAILY PEG 02/15/19 09:00 02/27/19 08:12 Atorvastatin Calcium (Lipitor) 40 mg QHS PEG 02/14/19 21:00 02/26/19 22:01 Clopidogrel Bisulfate (PLAVix) 75 mg DAILY PEG 02/15/19 09:00 05/15/19 09:01 02/27/19 08:14 Dextrose (Dextrose 50%) 25 ml ASDIRECTED PRN IV SEE LABEL COMMENTS 02/14/19 13:00 02/15/19 10:27 DC Dextrose (Dextrose 50%) 25 ml ASDIRECTED PRN IV SEE LABEL COMMENTS 02/15/19 10:15 02/15/19 10:27 DC Docusate Sodium (Colace Liquid) 100 mg BID PO 02/14/19 21:00 02/27/19 08:12 Fluoxetine HCl (PROzac) 20 mg DAILY PO 02/15/19 09:00 02/17/19 14:43 DC 02/17/19 09:22 Fluoxetine HCl (PROzac) 20 mg DAILY@1200 PO 02/18/19 12:00 02/26/19 12:50 Fluoxetine HCl (PROzac) 20 mg QHS PEG 02/15/19 21:00 02/15/19 21:00 DC Glimepiride (Amaryl) 4 mg DAILY@0730 PEG 02/15/19 07:30 02/27/19 08:14 Glucagon (Glucagon) 1 mg ASDIRECTED PRN SC SEE LABEL COMMENTS 02/14/19 13:00 02/15/19 10:27 DC Glucagon (Glucagon) 1 mg ASDIRECTED PRN SC SEE LABEL COMMENTS 02/15/19 10:15 02/15/19 10:27 DC Glucose (Glucose) 16 GM ASDIRECTED PRN PO SEE LABEL COMMENTS 02/14/19 13:00 02/15/19 10:27 DC Glucose (Glucose) 16 GM ASDIRECTED PRN PO SEE LABEL COMMENTS 02/15/19 10:15 02/15/19 10:27 DC Guaifenesin (Robitussin) 5 ml TID PEG 02/14/19 16:00 02/27/19 08:12 Heparin Sodium (Porcine) (Heparin) 5,000 units Q12H SC 02/14/19 21:00 02/27/19 08:14 Home Med (Med Rec Complete!) ASDIRECTED XX 02/14/19 14:15 02/14/19 14:56 DC Insulin Detemir (Levemir Insulin) 10 units QHS NM 02/16/19 21:00 02/18/19 14:40 DC 02/17/19 21:37 Insulin Detemir (Levemir Insulin) 15 units QHS NM 02/18/19 21:00 02/26/19 22:02 Insulin Human Lispro (HumaLOG INSULIN) SEE PROTOCOL TABLE AC NM 02/14/19 17:30 02/15/19 10:14 DC 02/14/19 19:48 Insulin Human Lispro (HumaLOG INSULIN) SEE PROTOCOL TABLE ASDIRECTED NM 02/15/19 12:00 02/15/19 12:00 DC Insulin Human Lispro (HumaLOG INSULIN) SEE PROTOCOL TABLE Q6H NM 02/15/19 12:00 02/27/19 06:24 Insulin Human Lispro (HumaLOG INSULIN) SEE PROTOCOL TABLE QHS NM 02/14/19 21:00 02/15/19 10:14 DC Lansoprazole (First-Lansoprazole Oral Suspension) 30 mg DAILY PEG 02/14/19 09:00 02/27/19 08:12 Lidocaine/ Diphenhydr/Alum/ Mg/Simeth (Magic Mouthwash) 5ml ASDIRECTED SSP 02/14/19 13:00 02/19/19 13:56 DC Lidocaine/ Diphenhydr/Alum/ Mg/Simeth (Magic Mouthwash) 5ml QID SSP 02/19/19 14:00 02/27/19 08:15 Meclizine HCl (Antivert) 25 mg Q8HP PRN PEG DIZZINESS 02/14/19 13:00 02/16/19 08:23 Metformin HCl (Glucophage Xr) 500 mg DAILY@18 PO 02/19/19 18:00 02/20/19 18:10 DC 02/19/19 17:48 Metformin HCl (Glucophage) 500 mg DAILY@18 PO 02/20/19 18:00 02/26/19 18:14 Metoprolol Tartrate (Lopressor) 25 mg BID PEG 02/14/19 21:00 02/26/19 08:58 Miscellaneous (Unresolved Clarification Entry) SEE LABEL COMMENTS DAILY XX 02/26/19 09:00 02/27/19 07:51 DC Miscellaneous (Unresolved Clarification Entry) SEE LABEL COMMENTS DAILY XX 02/27/19 09:00 02/27/19 09:00 DC Miscellaneous (Unresolved Patient Own Med Order) SEE LABEL COMMENTS DAILY XX 02/25/19 09:00 Omeprazole (PriLOSEC) 20 mg DAILY XX 02/15/19 09:00 02/15/19 09:00 DC Oxymetazoline HCl (Afrin) 2 spray ASDIRECTED PRN NA SEE LABEL COMMENTS 02/27/19 10:00 02/27/19 11:20 DC Patient Own Medication (Patient'S Own Med) pt may use home med at h... DAILY PEG 02/25/19 09:00 UNV Ramipril (Altace) 2.5 mg DAILY PEG 02/15/19 09:00 02/26/19 08:57 Ramipril (Altace) 2.5 mg DAILY PEG 02/15/19 09:00 Cancel Saliva Substitute (Mouthkote) 1 sprays QID MT 02/18/19 17:00 02/27/19 09:00 Sitagliptin Phosphate (Januvia) 100 mg DAILY PEG 02/15/19 09:00 02/27/19 08:12 Trazodone HCl (Desyrel) 25 mg QHS PEG 02/17/19 21:00 UNV Trazodone HCl (Desyrel) 25 mg QHS PO 02/17/19 21:00 02/26/19 22:01 NAJMA DURBIN MD Feb 27, 2019 12:50
--- NOTE | 2019-02-27 12:51 | IPNPDOC ---
PM&R Progress Note DATE OF SERVICE: Feb 27, 2019 Portable Trackman Progress Note Subjective: Patient had MBS today and is eager to know the results. He says he can now spit and clear his throat better. REVIEW OF SYSTEMS: The following is a completed review of systems and has been reviewed. Review of systems otherwise unremarkable. PAIN: Patient self reports no pain EYES: No recent vision changes EARS, NOSE, & THROAT: No throat pain +dysphagia CARDIOVASCULAR: Denies chest pain or palpitations PULMONARY: Denies shortness of breath, + weak cough (improving) GASTROINTESTINAL: Denies constipation/diarrhea GENITOURINARY: no dysuria or incontinence MUSCULOSKELETAL: left hip replacement NEUROLOGICAL:left sides paresis HEMATOLOGICAL: negative SKIN:peg PSYCHIATRIC: Unremarkable All other review of systems found to be negative. PHYSICAL EXAMINATION: VITAL SIGNS: Please see below. GENERAL: Pleasant and cooperative. No acute distress. HEENT: PERRL. Extraocular movements intact. Clear conjunctiva. left facial droop with tongue deviation to the left CARDIOVASCULAR: Regular rate and rhythm. No murmurs, rubs, or gallops LUNGS: scattered rhonchi ABDOMEN: Soft, nontender, nondistended. Positive bowel sounds. Normal active milena wel sounds. +PEG NEUROLOGICAL: Alert and oriented times three. Cranial nerves II, III, IV, V, , VIII grossly intact with deficits in VII, IX-XII on left. Sensation grossly intact in all 4 extremities +clonus 6 beats left foot, +babinski, brisk patellar reflex EXTREMITIES: 5\5 strength right upper extremities. 5\5 strength right lower extremity. flaccid paresis LUE, 2/5 hip flexion, knee extension, adduction, 0/5 ankle DF and EHL, 0/5 plantar flexion ASSESSMENT:68-year-old M with past medical history of HTN, DM, HLD who presents status post right pontine stroke PLAN: 1. Rehab: PT- improve gait, strengthen LLE, stretch heel cords, improve balance and endurance, multipodus when in bed, c/u NMES and encourage compensatory strategies like circumduction/hip hiking to advance left leg, improving standing tolerance OT- teach ADl management with use of right arm, strengthen/stretch/preserve ROM LUE, splinting, and E-stim MOLDER INFLATED BALL- NPO, c/u oral rinse, advance diet prn- MBS scheduled for today 2. Neuro: s.p right pontine stroke with dysphagia and dense hemiplegia- c/u secondary stroke prevention ASA, plavix, statin, BP control -c/u Prozac for motor recovery and mood 3. Cardio- pmh HTN c/u BP meds, HTN c/u statin, medicine consulted to assist in management 4. Resp: encourage incentive spirometry, DuoNeb, Guaifenesin, flonase, -CXR with no acute infiltrate, no leukocytosis -oral mouth rinse ordered 5. : monitor PVRs, Ucx negative 6. GI: PPI for ppx, bowel meds for optimal bowl care 7. Endo: pmh DM c/u Januvia and glimepiride with ISS coverage adjust prn, c/u Levemir coverage, metformin 500mg added, medicine recs appreciated -c/u Glucerna for better glycemic control per RD recs- appreciated 8. Nutrition- c/u tube feeds overnight with midday bolus 9. DVT ppx: heparin and albin, dopplers negative for DVT bilat 10. Dispo: 03/12/19 to home, progressing slowly towards goals Allergies Coded Allergies: No Known Allergies (Verified Allergy, Unknown, 02/14/19) Vital Signs Vital Signs Date Time Temp Pulse Resp B/P (MAP) Pulse Ox O2 Delivery O2 Flow Rate FiO2 02/27/19 08:14 64 105/55 02/27/19 06:00 97.3 18 91 02/22/19 06:00 132.0 60 Laboratory Data Labs 24H Laboratory Tests 2 02/26/19 17:45: Bedside Glucose (Misc Panel) 163H 02/27/19 00:07: Bedside Glucose (Misc Panel) 107 02/27/19 06:17: Bedside Glucose (Misc Panel) 153H 02/27/19 12:10: Bedside Glucose (Misc Panel) 87 Current Medications Current Medications Current Medications Medications (Trade) Dose Ordered Sig/Hallie Route PRN Reason Start Time Stop Time Status Last Admin Dose Admin Albuterol Sulfate (Proventil Neb) 2.5 mg Q4HP PRN NEB SOB/WHEEZING 02/14/19 13:00 Albuterol/ Ipratropium (Duoneb (Ipr 0.5mg/Alb 2.5mg)) 3 ml RQ6H NEB 02/14/19 20:00 02/27/19 07:28 Aspirin (Aspirin Chewable) 81 mg DAILY PEG 02/15/19 09:00 02/27/19 08:12 Atorvastatin Calcium (Lipitor) 40 mg QHS PEG 02/14/19 21:00 02/26/19 22:01 Clopidogrel Bisulfate (PLAVix) 75 mg DAILY PEG 02/15/19 09:00 05/15/19 09:01 02/27/19 08:14 Dextrose (Dextrose 50%) 25 ml ASDIRECTED PRN IV SEE LABEL COMMENTS 02/14/19 13:00 02/15/19 10:27 DC Dextrose (Dextrose 50%) 25 ml ASDIRECTED PRN IV SEE LABEL COMMENTS 02/15/19 10:15 02/15/19 10:27 DC Docusate Sodium (Colace Liquid) 100 mg BID PO 02/14/19 21:00 02/27/19 08:12 Fluoxetine HCl (PROzac) 20 mg DAILY PO 02/15/19 09:00 02/17/19 14:43 DC 02/17/19 09:22 Fluoxetine HCl (PROzac) 20 mg DAILY@1200 PO 02/18/19 12:00 02/26/19 12:50 Fluoxetine HCl (PROzac) 20 mg QHS PEG 02/15/19 21:00 02/15/19 21:00 DC Glimepiride (Amaryl) 4 mg DAILY@0730 PEG 02/15/19 07:30 02/27/19 08:14 Glucagon (Glucagon) 1 mg ASDIRECTED PRN SC SEE LABEL COMMENTS 02/14/19 13:00 02/15/19 10:27 DC Glucagon (Glucagon) 1 mg ASDIRECTED PRN SC SEE LABEL COMMENTS 02/15/19 10:15 02/15/19 10:27 DC Glucose (Glucose) 16 GM ASDIRECTED PRN PO SEE LABEL COMMENTS 02/14/19 13:00 02/15/19 10:27 DC Glucose (Glucose) 16 GM ASDIRECTED PRN PO SEE LABEL COMMENTS 02/15/19 10:15 02/15/19 10:27 DC Guaifenesin (Robitussin) 5 ml TID PEG 02/14/19 16:00 02/27/19 08:12 Heparin Sodium (Porcine) (Heparin) 5,000 units Q12H SC 02/14/19 21:00 02/27/19 08:14 Home Med (Med Rec Complete!) ASDIRECTED XX 02/14/19 14:15 02/14/19 14:56 DC Insulin Detemir (Levemir Insulin) 10 units QHS OK 02/16/19 21:00 02/18/19 14:40 DC 02/17/19 21:37 Insulin Detemir (Levemir Insulin) 15 units QHS OK 02/18/19 21:00 02/26/19 22:02 Insulin Human Lispro (HumaLOG INSULIN) SEE PROTOCOL TABLE AC OK 02/14/19 17:30 02/15/19 10:14 DC 02/14/19 19:48 Insulin Human Lispro (HumaLOG INSULIN) SEE PROTOCOL TABLE ASDIRECTED OK 02/15/19 12:00 02/15/19 12:00 DC Insulin Human Lispro (HumaLOG INSULIN) SEE PROTOCOL TABLE Q6H OK 02/15/19 12:00 02/27/19 06:24 Insulin Human Lispro (HumaLOG INSULIN) SEE PROTOCOL TABLE QHS OK 02/14/19 21:00 02/15/19 10:14 DC Lansoprazole (First-Lansoprazole Oral Suspension) 30 mg DAILY PEG 02/14/19 09:00 02/27/19 08:12 Lidocaine/ Diphenhydr/Alum/ Mg/Simeth (Magic Mouthwash) 5ml ASDIRECTED SSP 02/14/19 13:00 02/19/19 13:56 DC Lidocaine/ Diphenhydr/Alum/ Mg/Simeth (Magic Mouthwash) 5ml QID SSP 02/19/19 14:00 02/27/19 08:15 Meclizine HCl (Antivert) 25 mg Q8HP PRN PEG DIZZINESS 02/14/19 13:00 02/16/19 08:23 Metformin HCl (Glucophage Xr) 500 mg DAILY@18 PO 02/19/19 18:00 02/20/19 18:10 DC 02/19/19 17:48 Metformin HCl (Glucophage) 500 mg DAILY@18 PO 02/20/19 18:00 02/26/19 18:14 Metoprolol Tartrate (Lopressor) 25 mg BID PEG 02/14/19 21:00 02/26/19 08:58 Miscellaneous (Unresolved Clarification Entry) SEE LABEL COMMENTS DAILY XX 02/26/19 09:00 8/28/19 07:51 DC Miscellaneous (Unresolved Clarification Entry) SEE LABEL COMMENTS DAILY XX 02/27/19 09:00 02/27/19 09:00 DC Miscellaneous (Unresolved Patient Own Med Order) SEE LABEL COMMENTS DAILY XX 02/25/19 09:00 Omeprazole (PriLOSEC) 20 mg DAILY XX 02/15/19 09:00 02/15/19 09:00 DC Oxymetazoline HCl (Afrin) 2 spray ASDIRECTED PRN NA SEE LABEL COMMENTS 02/27/19 10:00 02/27/19 11:20 DC Patient Own Medication (Patient'S Own Med) pt may use home med at h... DAILY PEG 02/25/19 09:00 UNV Ramipril (Altace) 2.5 mg DAILY PEG 02/15/19 09:00 02/26/19 08:57 Ramipril (Altace) 2.5 mg DAILY PEG 02/15/19 09:00 Cancel Saliva Substitute (Mouthkote) 1 sprays QID MT 02/18/19 17:00 02/27/19 09:00 Sitagliptin Phosphate (Januvia) 100 mg DAILY PEG 02/15/19 09:00 02/27/19 08:12 Trazodone HCl (Desyrel) 25 mg QHS PEG 02/17/19 21:00 UNV Trazodone HCl (Desyrel) 25 mg QHS PO 02/17/19 21:00 02/26/19 22:01 NAJMA DURBIN MD Feb 27, 2019 12:51
[2019-02-27 14:00] VITALS: BP 132/68
--- NOTE | 2019-02-27 15:50 | IPNPDOC ---
Date Seen The patient was seen on 02/27/19. Progress Note Subjective: working with physical therapy. heparin to be renewed pr rn. on his wheelchair. c/o persistent left sided weakness which is chronic, but mo tivated and cooperating with PT. denies sob, chest pain, pressure, tightness, nausea, vomiting. appetite is good. denies any fever, chills, dysuria, urgency, frequency. no other issues per RN over night. Objective Vitals: pls see below GENERAL: NAD sitting in his wheelchair taking his morning meds. SKIN : Warm, dry intact HEENT: slight expressive aphasia, face is symmetric, tongue is midline. anicteric, no jaundice Atraumatic, normocephalic, moist mucous membrane CARDIOVASCULAR: Irregular rate and rhythm, S1S2, no JVD, bilateral lower extremity edema, distal pulses + palpable RESP: CTAB, no accessory muscle use noted ABDOMEN: PEG tube present. BS+ non distended non tender MS: no joint deformities NEURO: Alert and oriented x 3, left upper and lower extremity hemiplegia LABORATORY DATA, IMAGING STUDIES, MICROBIOLOGY: REVIEWED PLS SEE BELOW. 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 Hypertension -on ramipril, metoprolol -adequate bp control and does not need adjustment Type 2 diabetes mellitus -on glimepiride, Januvia, sliding scale with coverage and fingerstick monitoring every 6 hours while on PEG feeds Dysphagia -PEG tube feedings DVT prophylaxis -Heparin subcutaneous VS, I&O, 24H, Fishbone Vital Signs/I&O Vital Signs Date Time Temp Pulse Resp B/P (MAP) Pulse Ox O2 Delivery O2 Flow Rate FiO2 02/27/19 08:14 64 105/55 02/27/19 06:00 97.3 18 91 02/22/19 06:00 132.0 60 I&O- Last 24 Hours up to 6 AM 02/27/19 06:00 Intake Total 2575 ml Balance 2575 ml Laboratory Data 24H LABS Laboratory Tests 2 02/26/19 17:45: Bedside Glucose (Misc Panel) 163H 02/27/19 00:07: Bedside Glucose (Misc Panel) 107 02/27/19 06:17: Bedside Glucose (Misc Panel) 153H 02/27/19 12:10: Bedside Glucose ([facility] Panel) 87 PAMELA AUGUSTINE MD Feb 27, 2019 15:50
[2019-02-27] MEDS: FLUoxetine 20 MG CAP PO SCH (16:14)
--- NOTE | 2019-02-27 16:43 | REP ---
COOKIE SWALLOW The procedure was performed under the direct supervision of Dr. Lopez. The procedure was performed with Brook Vizcarra from speech pathology present. 5 ml aliquots of honey, puree and crushed pill consistency barium was administered. There is no evidence of penetration or aspiration. The detailed report of this examination will be provided by speech pathology. 0.9 minutes of fluoroscopy time was utilized for this procedure. Reviewed by LYNN Perez 02/27/2019 04:10 P Electronically Signed by Forrest Lopez MD 02/27/2019 04:34 P
[2019-02-27] MEDS: metFORMIN (GLUCOPHAGE) 500 MG TAB PO SCH (17:27)
[2019-02-27 20:00] VITALS: BP 124/72
[2019-02-27] MEDS: traZODone 25MG PER 1/2 TABLET PO SCH (21:42)
[2019-02-27] MEDS: ATORVASTATIN 20 MG TAB PEG SCH (21:42)
[2019-02-27] MEDS: LEVEMIR (INSULIN DETEMIR) 1 UNITS/0.01ML SC SCH (21:47)
[2019-02-28] MEDS: IPRATROPIUM 0.5MG/ALBUTEROL 2.5MG INH SOL UD 3ML (DUONEB)(J7620) NEB SCH ×4 (02:00→20:09)
[2019-02-28 05:38] VITALS: BP 107/61
[2019-02-28] MEDS: HumaLOG INSULIN (NovoLOG) PER UNIT SC SCH ×4 (06:31→17:52)
[2019-02-28] MEDS: ramipriL 1.25 MG CAP PEG SCH (08:24)
[2019-02-28] MEDS: GLIMEPIRIDE 2 MG TAB PEG SCH (08:24)
[2019-02-28] MEDS: HEPARIN SOD (PORCINE) 5000 UNITS/ML VIAL SC SCH ×2 (08:25→20:53)
[2019-02-28] MEDS: SITagliptin 50 MG TAB (JANUVIA) PEG SCH (08:25)
[2019-02-28] MEDS: METOPROLOL TART 25 MG TABLET PEG SCH (08:25)
[2019-02-28] MEDS: ASPIRIN 81 MG CHEW TABLET PEG SCH (08:25)
[2019-02-28] MEDS: CLOPIDOGREL 75 MG TAB PEG SCH (08:25)
[2019-02-28] MEDS: MAGIC MOUTHWASH SUSPENSION BTL SSP SCH ×4 (08:26→20:54)
[2019-02-28] MEDS: LANSOPRAZOLE SUSPENSION 30 MG/10 ML ORAL SYRINGE (FIRST-LANSOPRAZOLE) PEG SCH (08:26)
[2019-02-28] MEDS: DOCUSATE SOD LIQ 100MG/10ML UDC PO SCH ×2 (08:26→20:52)
[2019-02-28] MEDS: SALIVA SUBSTITUTE(MOUTHKOTE) BTL MT SCH ×4 (08:26→20:54)
[2019-02-28] MEDS: guaiFENesin SYRUP 200 MG/10 ML UDC PEG SCH ×3 (08:26→20:52)
--- NOTE | 2019-02-28 11:40 | IPNPDOC ---
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 REVIEW OF SYSTEMS: The following is a completed review of systems and has been reviewed. Review of systems otherwise unremarkable. PAIN: Patient self reports no pain EYES: No recent vision changes EARS, NOSE, & THROAT: No throat pain +dysphagia CARDIOVASCULAR: Denies chest pain or palpitations PULMONARY: Denies shortness of breath, + weak cough (improving) GASTROINTESTINAL: Denies constipation/diarrhea GENITOURINARY: no dysuria or incontinence MUSCULOSKELETAL: left hip replacement NEUROLOGICAL:left sides paresis HEMATOLOGICAL: negative SKIN:peg PSYCHIATRIC: Unremarkable All other review of systems found to be negative. PHYSICAL EXAMINATION: VITAL SIGNS: Please see below. GENERAL: Pleasant and cooperative. No acute distress. HEENT: PERRL. Extraocular movements intact. Clear conjunctiva. left facial droop with tongue deviation to the left CARDIOVASCULAR: Regular rate and rhythm. No murmurs, rubs, or gallops LUNGS: scattered rhonchi ABDOMEN: Soft, nontender, nondistended. Positive bowel sounds. Normal active bowel sounds. +PEG NEUROLOGICAL: Alert and oriented times three. Cranial nerves II, III, IV, V, , VIII grossly intact with deficits in VII, IX-XII on left. Sensation grossly intact in all 4 extremities +clonus 6 beats left foot, +babinski, brisk patellar reflex EXTREMITIES: 5\5 strength right upper extremities. 5\5 strength right lower extremity. flaccid paresis LUE, 2/5 hip flexion, knee extension, adduction, 0/5 ankle DF and EHL, 0/5 plantar flexion ASSESSMENT:68-year-old M with past medical history of HTN, DM, HLD who presents status post right pontine stroke PLAN: 1. 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 Neuro: s.p right pontine stroke with dysphagia and dense hemiplegia- c/u secondary stroke prevention ASA, plavix, statin, BP control -c/u Prozac for motor recovery and mood 3. Cardio- pmh HTN c/u BP meds, HTN c/u statin, medicine consulted to assist in management 4. Resp: encourage incentive spirometry, DuoNeb, Guaifenesin, flonase, -CXR with no acute infiltrate, no leukocytosis -oral mouth rinse ordered 5. : monitor PVRs, Ucx negative 6. GI: PPI for ppx, bowel meds for optimal bowl care 7. Endo: pmh DM c/u Januvia and glimepiride with ISS coverage adjust prn, c/u Levemir coverage, metformin 500mg added, medicine recs appreciated -c/u Glucerna for better glycemic control per RD recs- appreciated 8. Nutrition- c/u tube feeds overnight with midday bolus 9. DVT ppx: heparin and albin, dopplers negative for DVT bilat 10. Dispo: 03/12/19 to home, progressing slowly towards goals Allergies Coded Allergies: No Known Allergies (Verified Allergy, Unknown, 02/14/19) Vital Signs Vital Signs Date Time Temp Pulse Resp B/P (MAP) Pulse Ox O2 Delivery O2 Flow Rate FiO2 02/28/19 08:25 66 107/61 02/28/19 05:38 97.1 18 95 02/22/19 06:00 132.0 60 Laboratory Data Labs 24H Laboratory Tests 2 02/27/19 12:10: Bedside Glucose (Misc Panel) 87 02/27/19 17:00: Bedside Glucose (Misc Panel) 127H 02/28/19 00:13: Bedside Glucose (Misc Panel) 83 02/28/19 06:22: Bedside Glucose (Misc Panel) 160H Current Medications Current Medications Current Medications Medications (Trade) Dose Ordered Sig/Hallie Route PRN Reason Start Time Stop Time Status Last Admin Dose Admin Albuterol Sulfate (Proventil Neb) 2.5 mg Q4HP PRN NEB SOB/WHEEZING 02/14/19 13:00 Albuterol/ Ipratropium (Duoneb (Ipr 0.5mg/Alb 2.5mg)) 3 ml RQ6H NEB 02/14/19 20:00 02/28/19 07:23 Aspirin (Aspirin Chewable) 81 mg DAILY PEG 02/15/19 09:00 02/28/19 08:25 Atorvastatin Calcium (Lipitor) 40 mg QHS PEG 02/14/19 21:00 02/27/19 21:42 Clopidogrel Bisulfate (PLAVix) 75 mg DAILY PEG 02/15/19 09:00 05/15/19 09:01 02/28/19 08:25 Dextrose (Dextrose 50%) 25 ml ASDIRECTED PRN IV SEE LABEL COMMENTS 02/14/19 13:00 02/15/19 10:27 DC Dextrose (Dextrose 50%) 25 ml ASDIRECTED PRN IV SEE LABEL COMMENTS 02/15/19 10:15 02/15/19 10:27 DC Docusate Sodium (Colace Liquid) 100 mg BID PO 02/14/19 21:00 02/28/19 08:26 Fluoxetine HCl (PROzac) 20 mg DAILY PO 02/15/19 09:00 02/17/19 14:43 DC 02/17/19 09:22 Fluoxetine HCl (PROzac) 20 mg DAILY@1200 PO 02/18/19 12:00 02/27/19 16:14 Fluoxetine HCl (PROzac) 20 mg QHS PEG 02/15/19 21:00 02/15/19 21:00 DC Glimepiride (Amaryl) 4 mg DAILY@0730 PEG 02/15/19 07:30 02/28/19 08:24 Glucagon (Glucagon) 1 mg ASDIRECTED PRN SC SEE LABEL COMMENTS 02/14/19 13:00 02/15/19 10:27 DC Glucagon (Glucagon) 1 mg ASDIRECTED PRN SC SEE LABEL COMMENTS 02/15/19 10:15 02/15/19 10:27 DC Glucose (Glucose) 16 GM ASDIRECTED PRN PO SEE LABEL COMMENTS 02/14/19 13:00 02/15/19 10:27 DC Glucose (Glucose) 16 GM ASDIRECTED PRN PO SEE LABEL COMMENTS 02/15/19 10:15 02/15/19 10:27 DC Guaifenesin (Robitussin) 5 ml TID PEG 02/14/19 16:00 02/28/19 08:26 Heparin Sodium (Porcine) (Heparin) 5,000 units Q12H SC 02/14/19 21:00 02/28/19 08:25 Home Med (Med Rec Complete!) ASDIRECTED XX 02/14/19 14:15 02/14/19 14:56 DC Insulin Detemir (Levemir Insulin) 10 units QHS W[place] 02/16/19 21:00 02/18/19 14:40 DC 02/17/19 21:37 Insulin Detemir (Levemir Insulin) 15 units QHS WV 02/18/19 21:00 02/27/19 21:47 Insulin Human Lispro (HumaLOG INSULIN) SEE PROTOCOL TABLE AC WV 02/14/19 17:30 02/15/19 10:14 DC 02/14/19 19:48 Insulin Human Lispro (HumaLOG INSULIN) SEE PROTOCOL TABLE ASDIRECTED WV 02/15/19 12:00 02/15/19 12:00 DC Insulin Human Lispro (HumaLOG INSULIN) SEE PROTOCOL TABLE Q6H WV 02/15/19 12:00 02/28/19 06:31 Insulin Human Lispro (HumaLOG INSULIN) SEE PROTOCOL TABLE QHS WV 02/14/19 21:00 02/15/19 10:14 DC Lansoprazole (First-Lansoprazole Oral Suspension) 30 mg DAILY PEG 02/14/19 09:00 02/28/19 08:26 Lidocaine/ Diphenhydr/Alum/ Mg/Simeth (Magic Mouthwash) 5ml ASDIRECTED SSP 02/14/19 13:00 02/19/19 13:56 DC Lidocaine/ Diphenhydr/Alum/ Mg/Simeth (Magic Mouthwash) 5ml QID SSP 02/19/19 14:00 02/28/19 08:26 Meclizine HCl (Antivert) 25 mg Q8HP PRN PEG DIZZINESS 02/14/19 13:00 02/16/19 08:23 Metformin HCl (Glucophage Xr) 500 mg DAILY@18 PO 02/19/19 18:00 02/20/19 18:10 DC 02/19/19 17:48 Metformin HCl (Glucophage) 500 mg DAILY@18 PO 02/20/19 18:00 02/27/19 17:27 Metoprolol Succinate (TopROL XL) 12.5 mg DAILY PO 03/01/19 09:00 Metoprolol Tartrate (Lopressor) 25 mg BID PEG 02/14/19 21:00 02/28/19 10:30 DC 02/27/19 21:43 Miscellaneous (Unresolved Clarification Entry) SEE LABEL COMMENTS DAILY XX 02/26/19 09:00 02/27/19 07:51 DC Miscellaneous (Unresolved Clarification Entry) SEE LABEL COMMENTS DAILY XX 02/27/19 09:00 02/27/19 09:00 DC Miscellaneous (Unresolved Patient Own Med Order) SEE LABEL COMMENTS DAILY XX 02/25/19 09:00 Omeprazole (PriLOSEC) 20 mg DAILY XX 02/15/19 09:00 02/15/19 09:00 DC Oxymetazoline HCl (Afrin) 2 spray ASDIRECTED PRN NA SEE LABEL COMMENTS 02/27/19 10:00 02/27/19 11:20 DC Patient Own Medication (Patient'S Own Med) pt may use home med at h... DAILY PEG 02/25/19 09:00 UNV Ramipril (Altace) 2.5 mg DAILY PEG 02/15/19 09:00 02/26/19 08:57 Ramipril (Altace) 2.5 mg DAILY PEG 02/15/19 09:00 Cancel Saliva Substitute (Mouthkote) 1 sprays QID MT 02/18/19 17:00 02/28/19 08:26 Sitagliptin Phosphate (Januvia) 100 mg DAILY PEG 02/15/19 09:00 02/28/19 08:25 Trazodone HCl (Desyrel) 25 mg QHS PEG 02/17/19 21:00 UNV Trazodone HCl (Desyrel) 25 mg QHS PO 02/17/19 21:00 02/27/19 21:42 NAJMA DURBIN MD Feb 28, 2019 11:40
[2019-02-28] MEDS: FLUoxetine 20 MG CAP PO SCH (12:46)
[2019-02-28 14:00] VITALS: BP 126/69
[2019-02-28] MEDS: metFORMIN (GLUCOPHAGE) 500 MG TAB PO SCH (17:53)
[2019-02-28] MEDS: ATORVASTATIN 20 MG TAB PEG SCH (20:52)
[2019-02-28] MEDS: traZODone 25MG PER 1/2 TABLET PO SCH (20:52)
[2019-02-28] MEDS: LEVEMIR (INSULIN DETEMIR) 1 UNITS/0.01ML SC SCH (20:53)
[2019-02-28 21:26] VITALS: BP 132/77
[2019-03-01] MEDS: HumaLOG INSULIN (NovoLOG) PER UNIT SC SCH ×4 (00:13→20:26)
[2019-03-01] MEDS: IPRATROPIUM 0.5MG/ALBUTEROL 2.5MG INH SOL UD 3ML (DUONEB)(J7620) NEB SCH ×4 (02:00→20:54)
[2019-03-01 05:04] VITALS: BP 112/59
[2019-03-01] MEDS: guaiFENesin SYRUP 200 MG/10 ML UDC PEG SCH ×3 (08:27→20:25)
[2019-03-01] MEDS: CLOPIDOGREL 75 MG TAB PEG SCH (08:27)
[2019-03-01] MEDS: ramipriL 1.25 MG CAP PEG SCH (08:27)
[2019-03-01] MEDS: DOCUSATE SOD LIQ 100MG/10ML UDC PO SCH ×2 (08:27→20:25)
[2019-03-01] MEDS: SITagliptin 50 MG TAB (JANUVIA) PEG SCH (08:28)
[2019-03-01] MEDS: ASPIRIN 81 MG CHEW TABLET PEG SCH (08:28)
[2019-03-01] MEDS: GLIMEPIRIDE 2 MG TAB PEG SCH (08:28)
[2019-03-01] MEDS: METOPROLOL SUCC *XL* 12.5MG PER 1/2 TAB (TopROL *XL*) PO SCH (08:28)
[2019-03-01] MEDS: SALIVA SUBSTITUTE(MOUTHKOTE) BTL MT SCH ×4 (08:29→20:26)
[2019-03-01] MEDS: LANSOPRAZOLE SUSPENSION 30 MG/10 ML ORAL SYRINGE (FIRST-LANSOPRAZOLE) PEG SCH (08:29)
[2019-03-01] MEDS: HEPARIN SOD (PORCINE) 5000 UNITS/ML VIAL SC SCH ×2 (08:29→20:26)
[2019-03-01] MEDS: MAGIC MOUTHWASH SUSPENSION BTL SSP SCH ×4 (08:29→20:26)
[2019-03-01] MEDS: FLUoxetine 20 MG CAP PO SCH (12:45)
[2019-03-01 14:00] VITALS: BP 125/70
[2019-03-01] MEDS: metFORMIN (GLUCOPHAGE) 500 MG TAB PO SCH (17:53)
[2019-03-01 20:00] VITALS: BP 132/68
[2019-03-01] MEDS: LEVEMIR (INSULIN DETEMIR) 1 UNITS/0.01ML SC SCH (20:25)
[2019-03-01] MEDS: traZODone 25MG PER 1/2 TABLET PO SCH (20:26)
[2019-03-01] MEDS: ATORVASTATIN 20 MG TAB PEG SCH (20:26)
[2019-03-02] MEDS: IPRATROPIUM 0.5MG/ALBUTEROL 2.5MG INH SOL UD 3ML (DUONEB)(J7620) NEB SCH ×4 (02:00→19:37)
[2019-03-02 06:00] VITALS: BP 114/67
[2019-03-02 06:11] LABS: BASO % 0.9 % (0.0-1.0); EOS # 0.2 10^3/uL (0.0-0.50); EOS % 4.1 % (0.0-3.0); HEMATOCRIT 44.6 % (42.0-52.0); HEMOGLOBIN 14.8 g/dl (13.5-17.5); LYMPH % 23.7 % (24.0-44.0); MEAN CORPUSCULAR HEMOGLOBIN 28.9 pg (27.0-33.0); MEAN CORPUSCULAR HGB CONC 33.2 g/dl (32.0-36.5); MEAN CORPUSCULAR VOLUME 87.1 fl (80.0-96.0); MONO # 0.6 10^3/uL (0.0-0.8); MONO % 13.1 % (0.0-5.0); NEUTROPHILS # 2.5 10^3/uL (1.8-7.7); PLATELET COUNT, AUTOMATED 224 10^3/uL (150-450); RED BLOOD COUNT 5.12 10^6/uL (4.30-6.10); WHITE BLOOD COUNT 4.4 10^3/uL (4.0-10.0)
[2019-03-02 06:35] LABS: BLOOD UREA NITROGEN 16 MG/DL (7-18); CALCIUM LEVEL 9.2 MG/DL (8.8-10.2); CARBON DIOXIDE LEVEL 30 MEQ/L (21-32); CHLORIDE LEVEL 104 MEQ/L (98-107); CREATININE FOR GFR 0.76 MG/DL (0.70-1.30); GLOMERULAR FILTRATION RATE > 60.0 (>49); GLUCOSE, FASTING 111 MG/DL (70-100); SODIUM LEVEL 141 MEQ/L (136-145)
[2019-03-02] MEDS: guaiFENesin SYRUP 200 MG/10 ML UDC PEG SCH ×3 (09:22→20:34)
[2019-03-02] MEDS: DOCUSATE SOD LIQ 100MG/10ML UDC PO SCH ×2 (09:22→20:34)
[2019-03-02] MEDS: SITagliptin 50 MG TAB (JANUVIA) PEG SCH (09:23)
[2019-03-02] MEDS: HEPARIN SOD (PORCINE) 5000 UNITS/ML VIAL SC SCH ×2 (09:23→20:34)
[2019-03-02] MEDS: ramipriL 1.25 MG CAP PEG SCH (09:23)
[2019-03-02] MEDS: METOPROLOL SUCC *XL* 12.5MG PER 1/2 TAB (TopROL *XL*) PO SCH (09:23)
[2019-03-02] MEDS: SALIVA SUBSTITUTE(MOUTHKOTE) BTL MT SCH ×4 (09:24→20:39)
[2019-03-02] MEDS: HumaLOG INSULIN (NovoLOG) PER UNIT SC SCH ×4 (09:24→20:35)
[2019-03-02] MEDS: GLIMEPIRIDE 2 MG TAB PEG SCH (09:24)
[2019-03-02] MEDS: ASPIRIN 81 MG CHEW TABLET PEG SCH (09:25)
[2019-03-02] MEDS: CLOPIDOGREL 75 MG TAB PEG SCH (09:25)
[2019-03-02] MEDS: LANSOPRAZOLE SUSPENSION 30 MG/10 ML ORAL SYRINGE (FIRST-LANSOPRAZOLE) PEG SCH (09:25)
[2019-03-02] MEDS: MAGIC MOUTHWASH SUSPENSION BTL SSP SCH ×4 (09:26→20:35)
[2019-03-02] MEDS: FLUoxetine 20 MG CAP PO SCH (12:58)
[2019-03-02 14:00] VITALS: BP 117/71
[2019-03-02] MEDS: metFORMIN (GLUCOPHAGE) 500 MG TAB PO SCH (17:33)
[2019-03-02 20:00] VITALS: BP 127/72
[2019-03-02] MEDS: traZODone 25MG PER 1/2 TABLET PO SCH (20:34)
[2019-03-02] MEDS: ATORVASTATIN 20 MG TAB PEG SCH (20:34)
[2019-03-02] MEDS: LEVEMIR (INSULIN DETEMIR) 1 UNITS/0.01ML SC SCH (20:36)
[2019-03-03] MEDS: IPRATROPIUM 0.5MG/ALBUTEROL 2.5MG INH SOL UD 3ML (DUONEB)(J7620) NEB SCH ×4 (01:32→20:18)
[2019-03-03 06:00] VITALS: BP 110/65
[2019-03-03] MEDS: HumaLOG INSULIN (NovoLOG) PER UNIT SC SCH ×4 (07:18→20:48)
[2019-03-03] MEDS: GLIMEPIRIDE 2 MG TAB PEG SCH (09:11)
[2019-03-03] MEDS: CLOPIDOGREL 75 MG TAB PEG SCH (09:11)
[2019-03-03] MEDS: ASPIRIN 81 MG CHEW TABLET PEG SCH (09:11)
[2019-03-03] MEDS: SITagliptin 50 MG TAB (JANUVIA) PEG SCH (09:11)
[2019-03-03] MEDS: ramipriL 1.25 MG CAP PEG SCH (09:12)
[2019-03-03] MEDS: guaiFENesin SYRUP 200 MG/10 ML UDC PEG SCH ×3 (09:12→20:45)
[2019-03-03] MEDS: HEPARIN SOD (PORCINE) 5000 UNITS/ML VIAL SC SCH ×2 (09:12→20:47)
[2019-03-03] MEDS: METOPROLOL SUCC *XL* 12.5MG PER 1/2 TAB (TopROL *XL*) PO SCH (09:12)
[2019-03-03] MEDS: LANSOPRAZOLE SUSPENSION 30 MG/10 ML ORAL SYRINGE (FIRST-LANSOPRAZOLE) PEG SCH (09:12)
[2019-03-03] MEDS: MAGIC MOUTHWASH SUSPENSION BTL SSP SCH ×4 (09:13→20:45)
[2019-03-03] MEDS: SALIVA SUBSTITUTE(MOUTHKOTE) BTL MT SCH ×4 (09:13→20:45)
[2019-03-03] MEDS: DOCUSATE SOD LIQ 100MG/10ML UDC PO SCH ×2 (09:16→20:46)
[2019-03-03] MEDS: FLUoxetine 20 MG CAP PO SCH (11:59)
[2019-03-03 14:00] VITALS: BP 118/68
[2019-03-03] MEDS: metFORMIN (GLUCOPHAGE) 500 MG TAB PO SCH (17:15)
[2019-03-03 20:00] VITALS: BP 100/56
[2019-03-03] MEDS: ATORVASTATIN 20 MG TAB PEG SCH (20:45)
[2019-03-03] MEDS: traZODone 25MG PER 1/2 TABLET PO SCH (20:46)
[2019-03-03] MEDS: LEVEMIR (INSULIN DETEMIR) 1 UNITS/0.01ML SC SCH (20:48)
[2019-03-04] MEDS: IPRATROPIUM 0.5MG/ALBUTEROL 2.5MG INH SOL UD 3ML (DUONEB)(J7620) NEB SCH ×4 (02:00→20:56)
[2019-03-04 06:02] VITALS: BP 110/68
[2019-03-04] MEDS: HumaLOG INSULIN (NovoLOG) PER UNIT SC SCH ×4 (07:23→21:00)
[2019-03-04] MEDS: METOPROLOL SUCC *XL* 12.5MG PER 1/2 TAB (TopROL *XL*) PO SCH (08:42)
[2019-03-04] MEDS: DOCUSATE SOD LIQ 100MG/10ML UDC PO SCH ×2 (08:43→21:15)
[2019-03-04] MEDS: HEPARIN SOD (PORCINE) 5000 UNITS/ML VIAL SC SCH ×2 (08:43→21:15)
[2019-03-04] MEDS: LANSOPRAZOLE SUSPENSION 30 MG/10 ML ORAL SYRINGE (FIRST-LANSOPRAZOLE) PEG SCH (08:43)
[2019-03-04] MEDS: ASPIRIN 81 MG CHEW TABLET PEG SCH (08:43)
[2019-03-04] MEDS: guaiFENesin SYRUP 200 MG/10 ML UDC PEG SCH ×3 (08:43→21:15)
[2019-03-04] MEDS: GLIMEPIRIDE 2 MG TAB PEG SCH (08:43)
[2019-03-04] MEDS: CLOPIDOGREL 75 MG TAB PEG SCH (08:43)
[2019-03-04] MEDS: ramipriL 1.25 MG CAP PEG SCH (08:43)
[2019-03-04] MEDS: SITagliptin 50 MG TAB (JANUVIA) PEG SCH (08:43)
[2019-03-04] MEDS: MAGIC MOUTHWASH SUSPENSION BTL SSP SCH ×4 (08:44→21:19)
[2019-03-04] MEDS: SALIVA SUBSTITUTE(MOUTHKOTE) BTL MT SCH ×4 (08:44→21:19)
[2019-03-04] MEDS: FLUoxetine 20 MG CAP PO SCH (11:54)
[2019-03-04] MEDS: metFORMIN (GLUCOPHAGE) 500 MG TAB PO SCH (17:09)
[2019-03-04 20:00] VITALS: BP 140/77
[2019-03-04] MEDS: traZODone 25MG PER 1/2 TABLET PO SCH (21:18)
[2019-03-04] MEDS: ATORVASTATIN 20 MG TAB PEG SCH (21:18)
[2019-03-04] MEDS: LEVEMIR (INSULIN DETEMIR) 1 UNITS/0.01ML SC SCH (21:19)
[2019-03-05] MEDS: IPRATROPIUM 0.5MG/ALBUTEROL 2.5MG INH SOL UD 3ML (DUONEB)(J7620) NEB SCH ×4 (01:18→20:51)
[2019-03-05 05:28] VITALS: BP 127/59
[2019-03-05] MEDS: HumaLOG INSULIN (NovoLOG) PER UNIT SC SCH ×4 (07:30→20:26)
[2019-03-05] MEDS: LANSOPRAZOLE SUSPENSION 30 MG/10 ML ORAL SYRINGE (FIRST-LANSOPRAZOLE) PEG SCH (08:29)
[2019-03-05] MEDS: METOPROLOL SUCC *XL* 12.5MG PER 1/2 TAB (TopROL *XL*) PO SCH (08:30)
[2019-03-05] MEDS: guaiFENesin SYRUP 200 MG/10 ML UDC PEG SCH ×3 (08:30→20:24)
[2019-03-05] MEDS: ramipriL 1.25 MG CAP PEG SCH (08:30)
[2019-03-05] MEDS: CLOPIDOGREL 75 MG TAB PEG SCH (08:30)
[2019-03-05] MEDS: ASPIRIN 81 MG CHEW TABLET PEG SCH (08:30)
[2019-03-05] MEDS: SITagliptin 50 MG TAB (JANUVIA) PEG SCH (08:30)
[2019-03-05] MEDS: DOCUSATE SOD LIQ 100MG/10ML UDC PO SCH ×2 (08:30→20:23)
[2019-03-05] MEDS: MAGIC MOUTHWASH SUSPENSION BTL SSP SCH ×4 (08:31→20:25)
[2019-03-05] MEDS: GLIMEPIRIDE 2 MG TAB PEG SCH (08:31)
[2019-03-05] MEDS: HEPARIN SOD (PORCINE) 5000 UNITS/ML VIAL SC SCH ×2 (08:31→20:25)
[2019-03-05] MEDS: SALIVA SUBSTITUTE(MOUTHKOTE) BTL MT SCH ×4 (08:39→20:25)
[2019-03-05] MEDS: FLUoxetine 20 MG CAP PO SCH (13:09)
--- NOTE | 2019-03-05 13:34 | IPN ---
DATE OF SERVICE: 03/05/2019 SUBJECTIVE: The patient denies any polyuria, polyphagia, weight loss. Glucose is better controlled. Fasting is 96-140. Postprandial is 230. The patient has been cooperative with physical therapy. Afebrile. No other issues per nursing. continues to have left sided weakness which is improving. "I have something funny to tell you, doctor. Last night, I dreamt that I was awake." OBJECTIVE: VITALS: Temperature 97.2, pulse 62, respiratory rate 18, blood pressure 127/59, 92% on room air. Generally, the patient is awake, alert, oriented times three.slight slurring of speech. Sitting in his wheelchair. Working with physical therapy. at times with persistent but improved expressive aphasia. HEENT: Face is symmetric. Tongue is midline. Moist mucous membranes. No jaundice. Anicteric. Speaks in full sentences. No conversational dyspnea. Heart: S1, S2, irregularly irregular. No jugular venous distention (JVD). No murmurs noted. Lungs: Clear to auscultation. No wheezing, rales, or rhonchi. Abdomen: Positive bowel sounds. Soft. Nontender. non distended. PEG. trial of po Neurologic: Awake, alert, oriented times three. Left upper and lower extremity with persistent 4/5 weakness. 03/02/2019 complete blood count (CBC) and metabolic panel have been reviewed. ASSESSMENT AND PLAN: This is a 68-year-old male with past medical history significant for hypertension, hyperlipidemia, diabetes, obesity, metabolic syndrome admitted to [facility] on 02/06/2019 with complaints of left-sided hemiplegia and slurred speech. CT of the head was negative for intracranial hemorrhage. MRI showed wide pontine cerebrovascular accident (CVA). CT angiography of the neck and head showed no large vessel occlusion. The patient was started on aspirin and Plavix. Echocardiogram showed no regional wall motion abnormality, no interatrial shunt by color Doppler and bubble study. Due to severe dysphasia, the patient underwent feeding tube placement with a percutaneous endoscopic gastrostomy (PEG) tube on 02/12/[address] [facility] on 02/14/2019 for acute rehabilitation. CURRENT ISSUES: Are as follows: Right pontine cerebrovascular accident. Pt has been cooperative and has been working with Physical therapy (PT) and occupational therapy (OT) , with discharge plans for 03/12/19 . He is continued on ASA, plavix, and lipitor. The patient is exhibiting some improvement. The patient uses splinting in the right arm for activities of daily living (ADLs). Dysphagia secondary to right pontine cerebrovascular accident. Modified barium swallow on 02/27/2019 with recommendations for po food trials. Hypertension. Stable. Diabetes. Better controlled. Currently on Januvia, glimepiride, Levemir. sliding scale with coverage and qac hs fingersticks. Deep venous thrombosis (DVT) prophylaxis with thromboembolic deterrents (TEDs) and heparin subcutaneous. Dopplers on lower extremities has been negative. DISCHARGE PLANS: Are 03/12/2019. Edited 03/05/2019 osmany PEACE
[2019-03-05 14:00] VITALS: BP 125/89
--- NOTE | 2019-03-05 16:31 | IPNPDOC ---
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 He is feeling well. REVIEW OF SYSTEMS: The following is a completed review of systems and has been reviewed. Review of systems otherwise unremarkable. PAIN: Patient self reports no pain EYES: No recent vision changes EARS, NOSE, & THROAT: No throat pain +dysphagia CARDIOVASCULAR: Denies chest pain or palpitations PULMONARY: Denies shortness of breath, + weak cough (improving) GASTROINTESTINAL: Denies constipation/diarrhea GENITOURINARY: no dysuria or incontinence MUSCULOSKELETAL: left hip replacement NEUROLOGICAL:left sides paresis HEMATOLOGICAL: negative SKIN:peg PSYCHIATRIC: Unremarkable All other review of systems found to be negative. PHYSICAL EXAMINATION: VITAL SIGNS: Please see below. GENERAL: Pleasant and cooperative. No acute distress. HEENT: PERRL. Extraocular movements intact. Clear conjunctiva. left facial droop with tongue deviation to the left CARDIOVASCULAR: Regular rate and rhythm. No murmurs, rubs, or gallops LUNGS: scattered rhonchi ABDOMEN: Soft, nontender, nondistended. Positive bowel sounds. Normal active bowel sounds. +PEG NEUROLOGICAL: Alert and oriented times three. Cranial nerves II, III, IV, V, , VIII grossly intact with deficits in VII, IX-XII on left. Sensation grossly intact in all 4 extremities +clonus 6 beats left foot, +babinski, brisk patellar reflex EXTREMITIES: 5\5 strength right upper extremities. 5\5 strength right lower extremity. flaccid paresis LUE, 2/5 hip flexion, knee extension, adduction, 0/5 ankle DF and EHL, 0/5 plantar flexion ASSESSMENT:68-year-old M with past medical history of HTN, DM, HLD who presents status post right pontine stroke PLAN: 1. 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 Neuro: s.p right pontine stroke with dysphagia and dense hemiplegia- c/u secondary stroke prevention ASA, plavix, statin, BP control -c/u Prozac for motor recovery and mood 3. Cardio- pmh HTN c/u BP meds, HTN c/u statin, medicine consulted to assist in management 4. Resp: encourage incentive spirometry, DuoNeb, Guaifenesin, flonase -CXR with no acute infiltrate, no leukocytosis -oral mouth rinse ordered 5. : monitor PVRs, Ucx negative 6. GI: PPI for ppx, bowel meds for optimal bowl care 7. Endo: pmh DM c/u Januvia and glimepiride with ISS coverage adjust prn, c/u Levemir coverage, metformin 500mg added, medicine recs appreciated -tube feedings switched to daytime bolus only if eats <50% meal 8. Nutrition- c/u tube feeds overnight with midday bolus 9. DVT ppx: heparin and albin, dopplers negative for DVT bilat 10. Dispo: 03/12/19 to home, progressing slowly towards goals Allergies Coded Allergies: No Known Allergies (Verified Allergy, Unknown, 02/14/19) Vital Signs Vital Signs Date Time Temp Pulse Resp B/P (MAP) Pulse Ox O2 Delivery O2 Flow Rate FiO2 03/05/19 14:00 97.5 69 18 125/89 (101) 94 Laboratory Data Labs 24H Laboratory Tests 2 03/04/19 16:52: Bedside Glucose (Misc Panel) 140H 03/04/19 19:38: Bedside Glucose (Misc Panel) 230H 03/05/19 06:24: Bedside Glucose (Misc Panel) 96 03/05/19 12:36: Bedside Glucose (Misc Panel) 97 Current Medications Current Medications Current Medications Medications (Trade) Dose Ordered Sig/Hallie Route PRN Reason Start Time Stop Time Status Last Admin Dose Admin Albuterol Sulfate (Proventil Neb) 2.5 mg Q4HP PRN NEB SOB/WHEEZING 02/14/19 13:00 03/03/19 11:55 Albuterol/ Ipratropium (Duoneb (Ipr 0.5mg/Alb 2.5mg)) 3 ml RQ6H NEB 02/14/19 20:00 03/05/19 07:44 Aspirin (Aspirin Chewable) 81 mg DAILY PEG 02/15/19 09:00 03/05/19 08:30 Atorvastatin Calcium (Lipitor) 40 mg QHS PEG 02/14/19 21:00 03/04/19 21:18 Clopidogrel Bisulfate (PLAVix) 75 mg DAILY PEG 02/15/19 09:00 05/15/19 09:01 03/05/19 08:30 Dextrose (Dextrose 50%) 25 ml ASDIRECTED PRN IV SEE LABEL COMMENTS 02/14/19 13:00 02/15/19 10:27 DC Dextrose (Dextrose 50%) 25 ml ASDIRECTED PRN IV SEE LABEL COMMENTS 02/15/19 10:15 02/15/19 10:27 DC Docusate Sodium (Colace Liquid) 100 mg BID PO 02/14/19 21:00 03/05/19 08:30 Fluoxetine HCl (PROzac) 20 mg DAILY PO 02/15/19 09:00 02/17/19 14:43 DC 02/17/19 09:22 Fluoxetine HCl (PROzac) 20 mg DAILY@1200 PO 02/18/19 12:00 03/05/19 13:09 Fluoxetine HCl (PROzac) 20 mg QHS PEG 02/15/19 21:00 02/15/19 21:00 DC Glimepiride (Amaryl) 4 mg DAILY@0730 PEG 02/15/19 07:30 03/05/19 08:31 Glucagon (Glucagon) 1 mg ASDIRECTED PRN SC SEE LABEL COMMENTS 02/14/19 13:00 02/15/19 10:27 DC Glucagon (Glucagon) 1 mg ASDIRECTED PRN SC SEE LABEL COMMENTS 02/15/19 10:15 02/15/19 10:27 DC Glucose (Glucose) 16 GM ASDIRECTED PRN PO SEE LABEL COMMENTS 02/14/19 13:00 02/15/19 10:27 DC Glucose (Glucose) 16 GM ASDIRECTED PRN PO SEE LABEL COMMENTS 02/15/19 10:15 02/15/19 10:27 DC Guaifenesin (Robitussin) 5 ml TID PEG 02/14/19 16:00 03/05/19 08:30 Heparin Sodium (Porcine) (Heparin) 5,000 units Q12H SC 02/14/19 21:00 03/05/19 08:31 Home Med (Med Rec Complete!) ASDIRECTED XX 02/14/19 14:15 02/14/19 14:56 DC Insulin Detemir (Levemir Insulin) [facility] 02/16/19 21:00 02/18/19 14:40 DC 02/17/19 21:37 Insulin Detemir (Levemir Insulin) 10 units QHS ND 03/01/19 21:00 03/04/19 21:19 Insulin Detemir (Levemir Insulin) 15 units [facility]BR[facility] 02/18/19 21:00 03/01/19 12:22 DC 02/28/19 20:53 Insulin Human Lispro (HumaLOG INSULIN) SEE PROTOCOL TABLE AC ND 02/14/19 17:30 02/15/19 10:14 DC 02/14/19 19:48 Insulin Human Lispro (HumaLOG INSULIN) SEE PROTOCOL TABLE AC ND 03/05/19 07:30 Insulin Human Lispro (HumaLOG INSULIN) SEE PROTOCOL TABLE ACHS ND 03/01/19 17:30 03/04/19 21:00 DC 03/04/19 17:09 Insulin Human Lispro (HumaLOG INSULIN) SEE PROTOCOL TABLE ASDIRECTED ND 02/15/19 12:00 02/15/19 12:00 DC Insulin Human Lispro (HumaLOG INSULIN) SEE PROTOCOL TABLE Q6H ND 02/15/19 12:00 03/01/19 12:22 DC 03/01/19 06:51 Insulin Human Lispro (HumaLOG INSULIN) SEE PROTOCOL TABLE QHS ND 02/14/19 21:00 02/15/19 10:14 DC Insulin Human Lispro (HumaLOG INSULIN) SEE PROTOCOL TABLE QHS ND 03/04/19 21:00 Lansoprazole (First-Lansoprazole Oral Suspension) 30 mg DAILY PEG 02/14/19 09:00 03/05/19 08:29 Lidocaine/ Diphenhydr/Alum/ Mg/Simeth (Magic Mouthwash) 5ml ASDIRECTED SSP 02/14/19 13:00 02/19/19 13:56 DC Lidocaine/ Diphenhydr/Alum/ Mg/Simeth (Magic Mouthwash) 5ml QID SSP 02/19/19 14:00 03/05/19 13:12 Meclizine HCl (Antivert) 25 mg Q8HP PRN PEG DIZZINESS 02/14/19 13:00 02/16/19 08:23 Metformin HCl (Glucophage Xr) 500 mg DAILY@18 PO 02/19/19 18:00 02/20/19 18:10 DC 02/19/19 17:48 Metformin HCl (Glucophage) 500 mg DAILY@18 PO 02/20/19 18:00 03/04/19 17:09 Metoprolol Succinate (TopROL XL) 12.5 mg DAILY PO 03/01/19 09:00 03/05/19 08:30 Metoprolol Tartrate (Lopressor) 25 mg BID PEG 02/14/19 21:00 02/28/19 10:30 DC 02/27/19 21:43 Miscellaneous (Unresolved Clarification Entry) SEE LABEL COMMENTS DAILY XX 02/26/19 09:00 02/27/19 07:51 DC Miscellaneous (Unresolved Clarification Entry) SEE LABEL COMMENTS DAILY XX 02/27/19 09:00 02/27/19 09:00 DC Miscellaneous (Unresolved Clarification Entry) SEE LABEL COMMENTS DAILY XX 03/05/19 09:00 03/05/19 14:50 DC Miscellaneous (Unresolved Patient Own Med Order) SEE LABEL COMMENTS DAILY XX 02/25/19 09:00 02/28/19 14:29 DC Omeprazole (PriLOSEC) 20 mg DAILY XX 02/15/19 09:00 02/15/19 09:00 DC Oxymetazoline HCl (Afrin) 2 spray ASDIRECTED PRN NA SEE LABEL COMMENTS 02/27/19 10:00 02/27/19 11:20 DC Patient Own Medication (Patient'S Own Med) 1 TABLET = 25MG TABLET DAILY PEG 03/01/19 09:00 Future hold Ramipril (Altace) 2.5 mg DAILY PEG 02/15/19 09:00 03/05/19 08:30 Ramipril (Altace) 2.5 mg DAILY PEG 02/15/19 09:00 Cancel Saliva Substitute (Mouthkote) 1 sprays QID MT 02/18/19 17:00 03/05/19 08:39 Sitagliptin Phosphate (Januvia) 100 mg DAILY PEG 02/15/19 09:00 03/05/19 08:30 Trazodone HCl (Desyrel) 25 mg QHS PEG 02/17/19 21:00 UNV Trazodone HCl (Desyrel) 25 mg QHS PO 02/17/19 21:00 03/04/19 21:18 NAJMA DURBIN MD Mar 05, 2019 16:31
--- NOTE | 2019-03-05 16:36 | IPNPDOC ---
PM&R Progress Note DATE OF SERVICE: Mar 05, 2019 Baggage Screener Progress Note Subjective: Patient seen walking in the gym, stating his appetite is good and wants to know if he is progressing well. REVIEW OF SYSTEMS: The following is a completed review of systems and has been reviewed. Review of systems otherwise unremarkable. PAIN: Patient self reports no pain EYES: No recent vision changes EARS, NOSE, & THROAT: No throat pain +dysphagia CARDIOVASCULAR: Denies chest pain or palpitations PULMONARY: Denies shortness of breath, + weak cough (improving) GASTROINTESTINAL: Denies constipation/diarrhea GENITOURINARY: no dysuria or incontinence MUSCULOSKELETAL: left hip replacement NEUROLOGICAL:left sides paresis HEMATOLOGICAL: negative SKIN:peg PSYCHIATRIC: Unremarkable All other review of systems found to be negative. PHYSICAL EXAMINATION: VITAL SIGNS: Please see below. GENERAL: Pleasant and cooperative. No acute distress. HEENT: PERRL. Extraocular movements intact. Clear conjunctiva. left facial droop with tongue deviation to the left CARDIOVASCULAR: Regular rate and rhythm. No murmurs, rubs, or gallops LUNGS: scattered rhonchi ABDOMEN: Soft, nontender, nondistended. Positive bowel sounds. Normal active bow el sounds. +PEG NEUROLOGICAL: Alert and oriented times three. Cranial nerves II, III, IV, V, , VIII grossly intact with deficits in VII, IX-XII on left. Sensation grossly intact in all 4 extremities +clonus 6 beats left foot, +babinski, brisk patellar reflex EXTREMITIES: 5\5 strength right upper extremities. 5\5 strength right lower extremity. flaccid paresis LUE, 2/5 hip flexion, knee extension, adduction, 0/5 ankle DF and EHL, 0/5 plantar flexion ASSESSMENT:68-year-old M with past medical history of HTN, DM, HLD who presents status post right pontine stroke PLAN: 1. Rehab: PT- improve gait, strengthen LLE, stretch heel cords, improve balance and endurance, multipodus when in bed, c/u NMES, patient ambulating with center- post walker OT- teach ADl management with use of right arm, strengthen/stretch/preserve ROM LUE, splinting, and E-stim MIDWIFE PRACTITIONER- NPO, c/u oral rinse, advance diet prn- MBS 02/27/19, patient upgraded to honey thickened liquid and puree 2. Neuro: s.p right pontine stroke with dysphagia and dense hemiplegia- c/u secondary stroke prevention ASA, plavix, statin, BP control -c/u Prozac for motor recovery and mood 3. Cardio- pmh HTN c/u BP meds, HTN c/u statin, medicine consulted to assist in management 4. Resp: encourage incentive spirometry, DuoNeb, Guaifenesin, flonase -CXR with no acute infiltrate, no leukocytosis -oral mouth rinse ordered 5. : monitor PVRs, Ucx negative 6. GI: PPI for ppx, bowel meds for optimal bowl care 7. Endo: pmh DM c/u Januvia and glimepiride with ISS coverage adjust prn, c/u Levemir coverage, metformin 500mg added, medicine recs appreciated 8. Nutrition- -tube feedings switched to daytime bolus only if eats <50% meal- eating well 9. DVT ppx: heparin and albin, dopplers negative for DVT bilat 10. Dispo: 03/12/19 to home, progressing slowly towards goals Allergies Coded Allergies: No Known Allergies (Verified Allergy, Unknown, 02/14/19) Vital Signs Vital Signs Date Time Temp Pulse Resp B/P (MAP) Pulse Ox O2 Delivery O2 Flow Rate FiO2 03/05/19 14:00 97.5 69 18 125/89 (101) 94 Laboratory Data Labs 24H Laboratory Tests 2 03/04/19 16:52: Bedside Glucose (Misc Panel) 140H 03/04/19 19:38: Bedside Glucose (Misc Panel) 230H 03/05/19 06:24: Bedside Glucose (Misc Panel) 96 03/05/19 12:36: Bedside Glucose (Misc Panel) 97 Current Medications Current Medications Current Medications Medications (Trade) Dose Ordered Sig/Hallie Route PRN Reason Start Time Stop Time Status Last Admin Dose Admin Albuterol Sulfate (Proventil Neb) 2.5 mg Q4HP PRN NEB SOB/WHEEZING 02/14/19 13:00 03/03/19 11:55 Albuterol/ Ipratropium (Duoneb (Ipr 0.5mg/Alb 2.5mg)) 3 ml RQ6H NEB 02/14/19 20:00 03/05/19 07:44 Aspirin (Aspirin Chewable) 81 mg DAILY PEG 02/15/19 09:00 03/05/19 08:30 Atorvastatin Calcium (Lipitor) 40 mg QHS PEG 02/14/19 21:00 03/04/19 21:18 Clopidogrel Bisulfate (PLAVix) 75 mg DAILY PEG 02/15/19 09:00 05/15/19 09:01 03/05/19 08:30 Dextrose (Dextrose 50%) 25 ml ASDIRECTED PRN IV SEE LABEL COMMENTS 02/14/19 13:00 02/15/19 10:27 DC Dextrose (Dextrose 50%) 25 ml ASDIRECTED PRN IV SEE LABEL COMMENTS 02/15/19 10:15 02/15/19 10:27 DC Docusate Sodium (Colace Liquid) 100 mg BID PO 02/14/19 21:00 03/05/19 08:30 Fluoxetine HCl (PROzac) 20 mg DAILY PO 02/15/19 09:00 02/17/19 14:43 DC 02/17/19 09:22 Fluoxetine HCl (PROzac) 20 mg DAILY@1200 PO 02/18/19 12:00 03/05/19 13:09 Fluoxetine HCl (PROzac) 20 mg QHS PEG 02/15/19 21:00 02/15/19 21:00 DC Glimepiride (Amaryl) 4 mg DAILY@0730 PEG 02/15/19 07:30 03/05/19 08:31 Glucagon (Glucagon) 1 mg ASDIRECTED PRN SC SEE LABEL COMMENTS 02/14/19 13:00 02/15/19 10:27 DC Glucagon (Glucagon) 1 mg ASDIRECTED PRN SC SEE LABEL COMMENTS 02/15/19 10:15 02/15/19 10:27 DC Glucose (Glucose) 16 GM ASDIRECTED PRN PO SEE LABEL COMMENTS 02/14/19 13:00 02/15/19 10:27 DC Glucose (Glucose) 16 GM ASDIRECTED PRN PO SEE LABEL COMMENTS 02/15/19 10:15 02/15/19 10:27 DC Guaifenesin (Robitussin) 5 ml TID PEG 02/14/19 16:00 03/05/19 08:30 Heparin Sodium (Porcine) (Heparin) 5,000 units Q12H SC 02/14/19 21:00 03/05/19 08:31 Home Med (Med Rec Complete!) ASDIRECTED XX 02/14/19 14:15 02/14/19 14:56 DC Insulin Detemir (Levemir Insulin) 10 units QHS MT 02/16/19 21:00 02/18/19 14:40 DC 02/17/19 21:37 Insulin Detemir (Levemir Insulin) 10 units QHS MT 03/01/19 21:00 03/04/19 21:19 Insulin [facility] ([facility]) [facility] 02/18/19 21:00 03/01/19 12:22 DC 02/28/19 20:53 Insulin Human Lispro (HumaLOG INSULIN) SEE PROTOCOL TABLE AC MT 02/14/19 17:30 02/15/19 10:14 DC 02/14/19 19:48 Insulin Human Lispro (HumaLOG INSULIN) SEE PROTOCOL TABLE AC MT 03/05/19 07:30 Insulin Human Lispro (HumaLOG INSULIN) SEE PROTOCOL TABLE ACHS MT 03/01/19 17:30 03/04/19 21:00 DC 03/04/19 17:09 Insulin Human Lispro (HumaLOG INSULIN) SEE PROTOCOL TABLE ASDIRECTED MT 02/15/19 12:00 02/15/19 12:00 DC Insulin Human Lispro (HumaLOG INSULIN) SEE PROTOCOL TABLE Q6H MT 02/15/19 12:00 03/01/19 12:22 DC 03/01/19 06:51 Insulin Human Lispro (HumaLOG INSULIN) SEE PROTOCOL TABLE QHS MT 02/14/19 21:00 02/15/19 10:14 DC Insulin Human Lispro (HumaLOG INSULIN) SEE PROTOCOL TABLE QHS MT 03/04/19 21:00 Lansoprazole (First-Lansoprazole Oral Suspension) 30 mg DAILY PEG 02/14/19 09:00 03/05/19 08:29 Lidocaine/ Diphenhydr/Alum/ Mg/Simeth (Magic Mouthwash) 5ml ASDIRECTED SSP 02/14/19 13:00 02/19/19 13:56 DC Lidocaine/ Diphenhydr/Alum/ Mg/Simeth (Magic Mouthwash) 5ml QID SSP 02/19/19 14:00 03/05/19 13:12 Meclizine HCl (Antivert) 25 mg Q8HP PRN PEG DIZZINESS 02/14/19 13:00 02/16/19 08:23 Metformin HCl (Glucophage Xr) 500 mg DAILY@18 PO 02/19/19 18:00 02/20/19 18:10 DC 02/19/19 17:48 Metformin HCl (Glucophage) 500 mg DAILY@18 PO 02/20/19 18:00 03/04/19 17:09 Metoprolol Succinate (TopROL XL) 12.5 mg DAILY PO 03/01/19 09:00 03/05/19 08:30 Metoprolol Tartrate (Lopressor) 25 mg BID PEG 02/14/19 21:00 02/28/19 10:30 DC 02/27/19 21:43 Miscellaneous (Unresolved Clarification Entry) SEE LABEL COMMENTS DAILY XX 02/26/19 09:00 02/27/19 07:51 DC Miscellaneous (Unresolved Clarification Entry) SEE LABEL COMMENTS DAILY XX 02/27/19 09:00 02/27/19 09:00 DC Miscellaneous (Unresolved Clarification Entry) SEE LABEL COMMENTS DAILY XX 03/05/19 09:00 03/05/19 14:50 DC Miscellaneous (Unresolved Patient Own Med Order) SEE LABEL COMMENTS DAILY XX 02/25/19 09:00 02/28/19 14:29 DC Omeprazole (PriLOSEC) 20 mg DAILY XX 02/15/19 09:00 02/15/19 09:00 DC Oxymetazoline HCl (Afrin) 2 spray ASDIRECTED PRN NA SEE LABEL COMMENTS 02/27/19 10:00 02/27/19 11:20 DC Patient Own Medication (Patient'S Own Med) 1 TABLET = 25MG TABLET DAILY PEG 03/01/19 09:00 Future hold Ramipril (Altace) 2.5 mg DAILY PEG 02/15/19 09:00 03/05/19 08:30 Ramipril (Altace) 2.5 mg DAILY PEG 02/15/19 09:00 Cancel Saliva Substitute (Mouthkote) 1 sprays QID MT 02/18/19 17:00 03/05/19 08:39 Sitagliptin Phosphate (Januvia) 100 mg DAILY PEG 02/15/19 09:00 03/05/19 08:30 Trazodone HCl (Desyrel) 25 mg QHS PEG 02/17/19 21:00 UNV Trazodone HCl (Desyrel) 25 mg QHS PO 02/17/19 21:00 03/04/19 21:18 NAJMA DURBIN MD Mar 05, 2019 16:36
[2019-03-05] MEDS: metFORMIN (GLUCOPHAGE) 500 MG TAB PO SCH (17:04)
[2019-03-05] MEDS ORDERED: DEXTROSE 50% 50 ML SYRINGE IV PRN (18:45)
[2019-03-05] MEDS ORDERED: GLUCAGON FOR INJ 1 MG VIAL (J1610) SC PRN (18:45)
[2019-03-05] MEDS ORDERED: GLUCOSE 4 GM CHEW TABLET PO PRN (18:45)
[2019-03-05 20:00] VITALS: BP 121/76
[2019-03-05] MEDS: traZODone 25MG PER 1/2 TABLET PO SCH (20:24)
[2019-03-05] MEDS: ATORVASTATIN 20 MG TAB PEG SCH (20:32)
[2019-03-06] MEDS: IPRATROPIUM 0.5MG/ALBUTEROL 2.5MG INH SOL UD 3ML (DUONEB)(J7620) NEB SCH ×5 (01:12→20:00)
[2019-03-06 06:00] VITALS: BP 111/57
[2019-03-06 07:26] LABS: BASO # 0.1 10^3/uL (0.0-0.2); BASO % 0.6 % (0.0-1.0); EOS # 0.2 10^3/uL (0.0-0.5); EOS % 2.2 % (0.0-3.0); HEMATOCRIT 50.2 % (42.0-52.0); HEMOGLOBIN 16.6 g/dl (13.5-17.5); LYMPH # 1.2 10^3/uL (1.5-5.0); LYMPH % 13.3 % (24.0-44.0); MEAN CORPUSCULAR HEMOGLOBIN 28.9 pg (27.0-33.0); MEAN CORPUSCULAR HGB CONC 33.1 g/dl (32.0-36.5); MEAN CORPUSCULAR VOLUME 87.3 fl (80.0-96.0); MONO # 0.7 10^3/uL (0.0-0.8); MONO % 7.7 % (0.0-5.0); NEUTROPHILS # 6.8 10^3/uL (1.5-8.5); NEUTROPHILS % 75.6 % (36.0-66.0); PLATELET COUNT, AUTOMATED 190 10^3/uL (150-450); RED BLOOD COUNT 5.75 10^6/uL (4.30-6.10)
[2019-03-06 07:56] LABS: BLOOD UREA NITROGEN 12 MG/DL (7-18); CALCIUM LEVEL 9.2 MG/DL (8.8-10.2); CARBON DIOXIDE LEVEL 31 MEQ/L (21-32); CHLORIDE LEVEL 104 MEQ/L (98-107); CREATININE FOR GFR 0.77 MG/DL (0.70-1.30); GLOMERULAR FILTRATION RATE > 60.0 (>49); GLUCOSE, FASTING 136 MG/DL (70-100); SODIUM LEVEL 141 MEQ/L (136-145)
[2019-03-06] MEDS: guaiFENesin SYRUP 200 MG/10 ML UDC PEG SCH ×3 (08:27→20:18)
[2019-03-06] MEDS: LANSOPRAZOLE SUSPENSION 30 MG/10 ML ORAL SYRINGE (FIRST-LANSOPRAZOLE) PEG SCH (08:28)
[2019-03-06] MEDS: CLOPIDOGREL 75 MG TAB PEG SCH (08:29)
[2019-03-06] MEDS: ASPIRIN 81 MG CHEW TABLET PEG SCH (08:29)
[2019-03-06] MEDS: HEPARIN SOD (PORCINE) 5000 UNITS/ML VIAL SC SCH ×2 (08:29→20:19)
[2019-03-06] MEDS: JARDIANCE 25 MG PEG SCH (08:29)
[2019-03-06] MEDS: SITagliptin 50 MG TAB (JANUVIA) PEG SCH (08:30)
[2019-03-06] MEDS: METOPROLOL SUCC *XL* 12.5MG PER 1/2 TAB (TopROL *XL*) PO SCH (08:30)
[2019-03-06] MEDS: ramipriL 1.25 MG CAP PEG SCH (08:30)
[2019-03-06] MEDS: GLIMEPIRIDE 2 MG TAB PEG SCH (08:30)
[2019-03-06] MEDS: MAGIC MOUTHWASH SUSPENSION BTL SSP SCH ×4 (08:31→20:18)
[2019-03-06] MEDS: HumaLOG INSULIN (NovoLOG) PER UNIT SC SCH ×4 (08:31→21:00)
[2019-03-06] MEDS: SALIVA SUBSTITUTE(MOUTHKOTE) BTL MT SCH ×4 (08:32→20:18)
[2019-03-06] MEDS: DOCUSATE SOD LIQ 100MG/10ML UDC PO SCH ×2 (08:32→20:18)
[2019-03-06] MEDS: FLUoxetine 20 MG CAP PO SCH (12:12)
--- NOTE | 2019-03-06 12:56 | IPNPDOC ---
PM&R Progress Note DATE OF SERVICE: Mar 06, 2019 Retort Pre Cooker Progress Note Subjective: Patient seen walking in the gym with improvement in his overall gait. REVIEW OF SYSTEMS: The following is a completed review of systems and has been reviewed. Review of systems otherwise unremarkable. PAIN: Patient self reports no pain EYES: No recent vision changes EARS, NOSE, & THROAT: No throat pain +dysphagia CARDIOVASCULAR: Denies chest pain or palpitations PULMONARY: Denies shortness of breath, + weak cough (improving) GASTROINTESTINAL: Denies constipation/diarrhea GENITOURINARY: no dysuria or incontinence MUSCULOSKELETAL: left hip replacement NEUROLOGICAL:left sides paresis HEMATOLOGICAL: negative SKIN:peg PSYCHIATRIC: Unremarkable All other review of systems found to be negative. PHYSICAL EXAMINATION: VITAL SIGNS: Please see below. GENERAL: Pleasant and cooperative. No acute distress. HEENT: PERRL. Extraocular movements intact. Clear conjunctiva. left facial droop with tongue deviation to the left CARDIOVASCULAR: Regular rate and rhythm. No murmurs, rubs, or gallops LUNGS: scattered rhonchi ABDOMEN: Soft, nontender, nondistended. Positive bowel sounds. Normal active bowel sounds. +PEG NEUROLOGICAL: Alert and oriented times three. Cranial nerves II, III, IV, V, , VIII grossly intact with deficits in VII, IX-XII on left. Sensation grossly intact in all 4 extremities +clonus 6 beats left foot, +babinski, brisk patellar reflex EXTREMITIES: 5\5 strength right upper extremities. 5\5 strength right lower extremity. flaccid paresis LUE, 2/5 hip flexion, knee extension, adduction, 0/5 ankle DF and EHL, 0/5 plantar flexion ASSESSMENT:68-year-old M with past medical history of HTN, DM, HLD who presents status post right pontine stroke PLAN: 1. Rehab: PT- improve gait, strengthen LLE, stretch heel cords, improve balance and endurance, multipodus when in bed, c/u NMES, patient ambulating with center- post walker, will hopefully progress to yessica-walker vs quad cane prior to discharge OT- teach ADl management with use of right arm, strengthen/stretch/preserve ROM LUE, splinting, and E-stim PROGRAM INSTRUCTOR- NPO, c/u oral rinse, advance diet prn- MBS 02/27/19, patient upgraded to honey thickened liquid and puree 2. Neuro: s.p right pontine stroke with dysphagia and dense hemiplegia- c/u secondary stroke prevention ASA, plavix, statin, BP control -c/u Prozac for motor recovery and mood 3. Cardio- pmh HTN c/u BP meds, HTN c/u statin, medicine consulted to assist in management 4. Resp: encourage incentive spirometry, DuoNeb, Guaifenesin, flonase -CXR with no acute infiltrate, no leukocytosis -oral mouth rinse ordered 5. : monitor PVRs, Ucx negative 6. GI: PPI for ppx, bowel meds for optimal bowl care 7. Endo: pmh DM c/u Januvia and glimepiride with ISS coverage adjust prn, c/u Levemir coverage, metformin 500mg added, medicine recs appreciated 8. Nutrition- eating well, tube feeds held 9. DVT ppx: heparin and albin, dopplers negative for DVT bilat 10. Dispo: 03/12/19 to home, progressing towards goals Allergies Coded Allergies: No Known Allergies (Verified Allergy, Unknown, 02/14/19) Vital Signs Vital Signs Date Time Temp Pulse Resp B/P (MAP) Pulse Ox O2 Delivery O2 Flow Rate FiO2 03/06/19 08:30 75 111/57 03/06/19 06:00 97.5 18 93 Laboratory Data CBC/BMP Laboratory Tests 03/06/19 07:10 Red Blood Count 5.75, Mean Corpuscular Volume 87.3, Mean Corpuscular Hemoglobin 28.9, Mean Corpuscular Hemoglobin Concent 33.1, Red Cell Distribution Width 13.1, Neutrophils (%) (Auto) 75.6 H, Lymphocytes (%) (Auto) 13.3 L, Monocytes (%) (Auto) 7.7 H, Eosinophils (%) (Auto) 2.2, Basophils (%) (Auto) 0.6, Neutrophils # (Auto) 6.8, Lymphocytes # (Auto) 1.2 L, Monocytes # (Auto) 0.7, Eosinophils # (Auto) 0.2, Basophils # (Auto) 0.1, Calcium Level 9.2 Labs 24H Laboratory Tests 2 03/05/19 16:35: Bedside Glucose (Misc Panel) 68L 03/05/19 19:55: Bedside Glucose (Misc Panel) 214H 03/06/19 06:08: Bedside Glucose (Misc Panel) 103 03/06/19 07:10: Immature Granulocyte % (Auto) 0.6, White Blood Count 9.0, Red Blood Count 5.75, Hemoglobin 16.6, Hematocrit 50.2, Mean Corpuscular Volume 87.3, Mean Corpuscular Hemoglobin 28.9, Mean Corpuscular Hemoglobin Concent 33.1, Red Cell Distribution Width 13.1, Platelet Count 190, Neutrophils (%) (Auto) 75.6H, Lymphocytes (%) (Auto) 13.3L, Monocytes (%) (Auto) 7.7H, Eosinophils (%) (Auto) 2.2, Basophils (%) (Auto) 0.6, Neutrophils # (Auto) 6.8, Lymphocytes # (Auto) 1.2L, Monocytes # (Auto) 0.7, Eosinophils # (Auto) 0.2, Basophils # (Auto) 0.1, Nucleated Red Blood Cells % (auto) 0.0, Anion Gap 6L, Glomerular Filtration Rate > 60.0, Blood Urea Nitrogen 12, Creatinine 0.77, Sodium Level 141, Potassium Level 4.0, Chloride Level 104, Carbon Dioxide Level 31, Calcium Level 9.2 03/06/19 12:16: Bedside Glucose (Misc Panel) 80 Current Medications Current Medications Current Medications Medications (Trade) Dose Ordered Sig/Hallie Route PRN Reason Start Time Stop Time Status Last Admin Dose Admin Albuterol Sulfate (Proventil Neb) 2.5 mg Q4HP PRN NEB SOB/WHEEZING 02/14/19 13:00 03/03/19 11:55 Albuterol/ Ipratropium (Duoneb (Ipr 0.5mg/Alb 2.5mg)) 3 ml RQ6H NEB 02/14/19 20:00 03/06/19 07:36 Aspirin (Aspirin Chewable) 81 mg DAILY PEG 02/15/19 09:00 03/06/19 08:29 Atorvastatin Calcium (Lipitor) 40 mg QHS PEG 02/14/19 21:00 03/05/19 20:32 Clopidogrel Bisulfate (PLAVix) 75 mg DAILY PEG 02/15/19 09:00 05/15/19 09:01 03/06/19 08:29 Dextrose (Dextrose 50%) 25 ml ASDIRECTED PRN IV SEE LABEL COMMENTS 02/14/19 13:00 02/15/19 10:27 DC Dextrose (Dextrose 50%) 25 ml ASDIRECTED PRN IV SEE LABEL COMMENTS 02/15/19 10:15 02/15/19 10:27 DC Dextrose (Dextrose 50%) 25 ml ASDIRECTED PRN IV SEE LABEL COMMENTS 03/05/19 18:45 Docusate Sodium (Colace Liquid) 100 mg BID PO 02/14/19 21:00 03/05/19 20:23 Fluoxetine HCl (PROzac) 20 mg DAILY PO 02/15/19 09:00 02/17/19 14:43 DC 02/17/19 09:22 Fluoxetine HCl (PROzac) 20 mg DAILY@1200 PO 02/18/19 12:00 03/06/19 12:12 Fluoxetine HCl (PROzac) 20 mg QHS PEG 02/15/19 21:00 02/15/19 21:00 DC Glimepiride (Amaryl) 4 mg DAILY@0730 PEG 02/15/19 07:30 03/06/19 08:30 Glucagon (Glucagon) 1 mg ASDIRECTED PRN SC SEE LABEL COMMENTS 02/14/19 13:00 02/15/19 10:27 DC Glucagon (Glucagon) 1 mg ASDIRECTED PRN SC SEE LABEL COMMENTS 02/15/19 10:15 02/15/19 10:27 DC Glucagon (Glucagon) 1 mg ASDIRECTED PRN SC SEE LABEL COMMENTS 03/05/19 18:45 Glucose (Glucose) 16 GM ASDIRECTED PRN PO SEE LABEL COMMENTS 02/14/19 13:00 02/15/19 10:27 DC Glucose (Glucose) 16 GM ASDIRECTED PRN PO SEE LABEL COMMENTS 02/15/19 10:15 02/15/19 10:27 DC Glucose (Glucose) 16 GM ASDIRECTED PRN PO SEE LABEL COMMENTS 03/05/19 18:45 Guaifenesin (Robitussin) 5 ml TID PEG 02/14/19 16:00 03/06/19 08:27 Heparin Sodium (Porcine) (Heparin) 5,000 units Q12H SC 02/14/19 21:00 03/06/19 08:29 Home Med (Med Rec Complete!) ASDIRECTED XX 02/14/19 14:15 02/14/19 14:56 DC Insulin Detemir (Levemir Insulin) 10 units QHS [place] 02/16/19 21:00 02/18/19 14:40 DC 02/17/19 21:37 [facility] 21:00 03/05/19 18:36 DC 03/04/19 21:19 Ins[facility] ([facility]) [facility] 02/18/19 21:00 03/01/19 12:22 DC 02/28/19 20:53 Insulin Human Lispro (HumaLOG INSULIN) SEE PROTOCOL TABLE AC [place] 02/14/19 17:30 02/15/19 10:14 DC 02/14/19 19:48 Insulin Human Lispro (HumaLOG INSULIN) SEE PROTOCOL TABLE AC [place] 03/05/19 07:30 03/06/19 08:31 Insulin Human Lispro (HumaLOG INSULIN) SEE PROTOCOL TABLE ACHS [place] 03/01/19 17:30 03/04/19 21:00 DC 03/04/19 17:09 Insulin Human Lispro (HumaLOG INSULIN) SEE PROTOCOL TABLE ASDIRECTED [place] 02/15/19 12:00 02/15/19 12:00 DC Insulin Human Lispro (HumaLOG INSULIN) SEE PROTOCOL TABLE Q6H [place] 02/15/19 12:00 03/01/19 12:22 DC 03/01/19 06:51 Insulin Human Lispro (HumaLOG INSULIN) SEE PROTOCOL TABLE QHS [place] 02/14/19 21:00 02/15/19 10:14 DC Insulin Human Lispro (HumaLOG INSULIN) SEE PROTOCOL TABLE QHS [place] 03/04/19 21:00 Lansoprazole (First-Lansoprazole Oral Suspension) 30 mg DAILY PEG 02/14/19 09:00 03/06/19 08:28 Lidocaine/ Diphenhydr/Alum/ Mg/Simeth (Magic Mouthwash) 5ml ASDIRECTED SSP 02/14/19 13:00 02/19/19 13:56 DC Lidocaine/ Diphenhydr/Alum/ Mg/Simeth (Magic Mouthwash) 5ml QID SSP 02/19/19 14:00 03/06/19 08:31 Meclizine HCl (Antivert) 25 mg Q8HP PRN PEG DIZZINESS 02/14/19 13:00 02/16/19 08:23 Metformin HCl (Glucophage Xr) 500 mg DAILY@18 PO 02/19/19 18:00 02/20/19 18:10 DC 02/19/19 17:48 Metformin HCl (Glucophage) 500 mg DAILY@18 PO 02/20/19 18:00 03/05/19 17:04 Metoprolol Succinate (TopROL XL) 12.5 mg DAILY PO 03/01/19 09:00 03/06/19 08:30 Metoprolol Tartrate (Lopressor) 25 mg BID PEG 02/14/19 21:00 02/28/19 10:30 DC 02/27/19 21:43 Miscellaneous (Unresolved Clarification Entry) SEE LABEL COMMENTS DAILY XX 02/26/19 09:00 02/27/19 07:51 DC Miscellaneous (Unresolved Clarification Entry) SEE LABEL COMMENTS DAILY XX 02/27/19 09:00 02/27/19 09:00 DC Miscellaneous (Unresolved Clarification Entry) SEE LABEL COMMENTS DAILY XX 03/05/19 09:00 03/05/19 14:50 DC Miscellaneous (Unresolved Patient Own Med Order) SEE LABEL COMMENTS DAILY XX 02/25/19 09:00 02/28/19 14:29 DC Omeprazole (PriLOSEC) 20 mg DAILY XX 02/15/19 09:00 02/15/19 09:00 DC Oxymetazoline HCl (Afrin) 2 spray ASDIRECTED PRN NA SEE LABEL COMMENTS 02/27/19 10:00 02/27/19 11:20 DC Patient Own Medication (Patient'S Own Med) 1 TABLET = 25MG TABLET DAILY PEG 03/01/19 09:00 Future hold 03/06/19 08:29 Ramipril (Altace) 2.5 mg DAILY PEG 02/15/19 09:00 03/06/19 08:30 Ramipril (Altace) 2.5 mg DAILY PEG 02/15/19 09:00 Cancel Saliva Substitute (Mouthkote) 1 sprays QID MT 02/18/19 17:00 03/06/19 08:32 Sitagliptin Phosphate (Januvia) 100 mg DAILY PEG 02/15/19 09:00 03/06/19 08:30 Trazodone HCl (Desyrel) 25 mg QHS PEG 02/17/19 21:00 UNV Trazodone HCl (Desyrel) 25 mg QHS PO 02/17/19 21:00 03/05/19 20:24 NAJMA DURBIN MD Mar 06, 2019 12:56
[2019-03-06 14:00] VITALS: BP 128/73
[2019-03-06] MEDS: metFORMIN (GLUCOPHAGE) 500 MG TAB PO SCH (17:07)
[2019-03-06 20:00] VITALS: BP 120/64
[2019-03-06] MEDS: traZODone 25MG PER 1/2 TABLET PO SCH (20:18)
[2019-03-06] MEDS: ATORVASTATIN 20 MG TAB PEG SCH (20:18)
[2019-03-07 04:00] VITALS: BP 135/68
[2019-03-07] MEDS: HumaLOG INSULIN (NovoLOG) PER UNIT SC SCH ×4 (07:02→20:44)
[2019-03-07] MEDS: IPRATROPIUM 0.5MG/ALBUTEROL 2.5MG INH SOL UD 3ML (DUONEB)(J7620) NEB SCH ×3 (07:58→20:00)
[2019-03-07] MEDS: guaiFENesin SYRUP 200 MG/10 ML UDC PEG SCH (08:54)
[2019-03-07] MEDS: HEPARIN SOD (PORCINE) 5000 UNITS/ML VIAL SC SCH ×2 (08:54→20:44)
[2019-03-07] MEDS: DOCUSATE SOD LIQ 100MG/10ML UDC PO SCH ×2 (08:54→20:44)
[2019-03-07] MEDS: METOPROLOL SUCC *XL* 12.5MG PER 1/2 TAB (TopROL *XL*) PO SCH (08:55)
[2019-03-07] MEDS: GLIMEPIRIDE 2 MG TAB PEG SCH (08:55)
[2019-03-07] MEDS: SITagliptin 50 MG TAB (JANUVIA) PEG SCH (08:56)
[2019-03-07] MEDS: CLOPIDOGREL 75 MG TAB PEG SCH (08:56)
[2019-03-07] MEDS: MAGIC MOUTHWASH SUSPENSION BTL SSP SCH ×4 (08:56→20:45)
[2019-03-07] MEDS: ramipriL 1.25 MG CAP PEG SCH (08:56)
[2019-03-07] MEDS: ASPIRIN 81 MG CHEW TABLET PEG SCH (08:56)
[2019-03-07] MEDS: JARDIANCE 25 MG PEG SCH (08:58)
[2019-03-07] MEDS: SALIVA SUBSTITUTE(MOUTHKOTE) BTL MT SCH ×4 (08:59→20:45)
[2019-03-07] MEDS: LANSOPRAZOLE SUSPENSION 30 MG/10 ML ORAL SYRINGE (FIRST-LANSOPRAZOLE) PEG SCH (08:59)
[2019-03-07] MEDS ORDERED: PANTOPRAZOLE 40MG TAB (PROTONIX) PO SCH (09:00)
--- NOTE | 2019-03-07 10:13 | IPNPDOC ---
PM&R Progress Note DATE OF SERVICE: Mar 07, 2019 Spud Grader Progress Note Subjective: Patient seen in his room stating he is able to swallow whole pills and is looking forward to going home. REVIEW OF SYSTEMS: The following is a completed review of systems and has been reviewed. Review of systems otherwise unremarkable. PAIN: Patient self reports no pain EYES: No recent vision changes EARS, NOSE, & THROAT: No throat pain +dysphagia CARDIOVASCULAR: Denies chest pain or palpitations PULMONARY: Denies shortness of breath, + weak cough (improving) GASTROINTESTINAL: Denies constipation/diarrhea GENITOURINARY: no dysuria or incontinence MUSCULOSKELETAL: left hip replacement NEUROLOGICAL:left sides paresis HEMATOLOGICAL: negative SKIN:peg PSYCHIATRIC: Unremarkable All other review of systems found to be negative. PHYSICAL EXAMINATION: VITAL SIGNS: Please see below. GENERAL: Pleasant and cooperative. No acute distress. HEENT: PERRL. Extraocular movements intact. Clear conjunctiva. left facial droop with tongue deviation to the left CARDIOVASCULAR: Regular rate and rhythm. No murmurs, rubs, or gallops LUNGS: scattered rhonchi ABDOMEN: Soft, nontender, nondistended. Positive bowel sounds. Normal active bowel sounds. +PEG NEUROLOGICAL: Alert and oriented times three. Cranial nerves II, III, IV, V, , VIII grossly intact with deficits in VII, IX-XII on left. Sensation grossly intact in all 4 extremities +clonus 6 beats left foot, +babinski, brisk patellar reflex EXTREMITIES: 5\5 strength right upper extremities. 5\5 strength right lower extremity. 2+/5 biceps, 2/5 triceps 2/5 wrist extensor, 2/5 travel ticketing reviewer, 2/5 hip flexion, knee extension, adduction, 0/5 ankle DF and EHL, 0/5 plantar flexion ASSESSMENT:68-year-old M with past medical history of HTN, DM, HLD who presents status post right pontine stroke PLAN: 1. 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 Neuro: s.p right pontine stroke with dysphagia and dense hemiplegia- c/u secondary stroke prevention ASA, plavix, statin, BP control -c/u Prozac for motor recovery and mood 3. Cardio- pmh HTN c/u BP meds, HTN c/u statin, medicine consulted to assist in management 4. Resp: encourage incentive spirometry, DuoNeb, Guaifenesin, flonase -CXR with no acute infiltrate, no leukocytosis -oral mouth rinse ordered 5. : monitor PVRs, Ucx negative 6. GI: PPI for ppx, bowel meds for optimal bowl care 7. Endo: pmh DM c/u Januvia and glimepiride with ISS coverage adjust prn, c/u Levemir coverage, metformin 500mg added, medicine recs appreciated 8. Nutrition- eating well, tube feeds held 9. DVT ppx: heparin and albin, dopplers negative for DVT bilat 10. Dispo: 03/12/19 to home, progressing towards goals Allergies Coded Allergies: No Known Allergies (Verified Allergy, Unknown, 02/14/19) Vital Signs Vital Signs Date Time Temp Pulse Resp B/P (MAP) Pulse Ox O2 Delivery O2 Flow Rate FiO2 03/07/19 08:55 60 135/68 03/07/19 04:00 97.7 17 97 Laboratory Data Labs 24H Laboratory Tests 2 03/06/19 12:16: Bedside Glucose (Misc Panel) 80 03/06/19 16:53: Bedside Glucose (Misc Panel) 110 03/06/19 20:28: Bedside Glucose (Misc Panel) 186H 03/07/19 06:24: Bedside Glucose (Misc Panel) 97 Current Medications Current Medications Current Medications Medications (Trade) Dose Ordered Sig/Hallie Route PRN Reason Start Time Stop Time Status Last Admin Dose Admin Albuterol Sulfate (Proventil Neb) 2.5 mg Q4HP PRN NEB SOB/WHEEZING 02/14/19 13:00 03/03/19 11:55 Albuterol/ Ipratropium (Duoneb (Ipr 0.5mg/Alb 2.5mg)) 3 ml RQ6H NEB 02/14/19 20:00 03/07/19 07:58 Aspirin (Aspirin Chewable) 81 mg DAILY PEG 02/15/19 09:00 03/07/19 08:56 Atorvastatin Calcium (Lipitor) 40 mg QHS PEG 02/14/19 21:00 03/06/19 20:18 Clopidogrel Bisulfate (PLAVix) 75 mg DAILY PEG 02/15/19 09:00 05/15/19 09:01 03/07/19 08:56 Dextrose (Dextrose 50%) 25 ml ASDIRECTED PRN IV SEE LABEL COMMENTS 02/14/19 13:00 02/15/19 10:27 DC Dextrose (Dextrose 50%) 25 ml ASDIRECTED PRN IV SEE LABEL COMMENTS 02/15/19 10:15 02/15/19 10:27 DC Dextrose (Dextrose 50%) 25 ml ASDIRECTED PRN IV SEE LABEL COMMENTS 03/05/19 18:45 Docusate Sodium (Colace Liquid) 100 mg BID PO 02/14/19 21:00 03/07/19 08:54 Fluoxetine HCl (PROzac) 20 mg DAILY PO 02/15/19 09:00 02/17/19 14:43 DC 02/17/19 09:22 Fluoxetine HCl (PROzac) 20 mg DAILY@1200 PO 02/18/19 12:00 03/06/19 12:12 Fluoxetine HCl (PROzac) 20 mg QHS PEG 02/15/19 21:00 02/15/19 21:00 DC Glimepiride (Amaryl) 4 mg DAILY@0730 PEG 02/15/19 07:30 03/07/19 08:55 Glucagon (Glucagon) 1 mg ASDIRECTED PRN SC SEE LABEL COMMENTS 02/14/19 13:00 02/15/19 10:27 DC Glucagon (Glucagon) 1 mg ASDIRECTED PRN SC SEE LABEL COMMENTS 02/15/19 10:15 02/15/19 10:27 DC Glucagon (Glucagon) 1 mg ASDIRECTED PRN SC SEE LABEL COMMENTS 03/05/19 18:45 Glucose (Glucose) 16 GM ASDIRECTED PRN PO SEE LABEL COMMENTS 02/14/19 13:00 02/15/19 10:27 DC Glucose (Glucose) 16 GM ASDIRECTED PRN PO SEE LABEL COMMENTS 02/15/19 10:15 02/15/19 10:27 DC Glucose (Glucose) 16 GM ASDIRECTED PRN PO SEE LABEL COMMENTS 03/05/19 18:45 Guaifenesin (Robitussin) 5 ml TID PEG 02/14/19 16:00 03/07/19 08:54 Heparin Sodium (Porcine) (Heparin) 5,000 units Q12H [place] 02/14/19 21:00 03/07/19 08:54 Home Med (Med Rec Complete!) ASDIRECTED XX 02/14/19 14:15 02/14/19 14:56 DC Insulin Detemir (Levemir Insulin) 10 units QHS [place] 02/16/19 21:00 02/18/19 14:40 DC 02/17/19 21:37 Insulin Detemir (Levemir Insulin) 10 units QHS [place] 03/01/19 21:00 03/05/19 18:36 DC 03/04/19 21:19 Insulin Detemir (Levemir Insulin) 15 units QHS [place] 02/18/19 21:00 03/01/19 12:22 DC 02/28/19 20:53 Insulin Human Lispro (HumaLOG INSULIN) SEE PROTOCOL TABLE AC [place] 02/14/19 17:30 02/15/19 10:14 DC 02/14/19 19:48 Insulin Human Lispro (HumaLOG INSULIN) SEE PROTOCOL TABLE AC [place] 03/05/19 07:30 03/06/19 17:07 Insulin Human Lispro (HumaLOG INSULIN) SEE PROTOCOL TABLE ACHS [place] 03/01/19 17:30 03/04/19 21:00 DC 03/04/19 17:09 Insulin Human Lispro (HumaLOG INSULIN) SEE PROTOCOL TABLE ASDIRECTED [place] 02/15/19 12:00 02/15/19 12:00 DC Insulin Human Lispro (HumaLOG INSULIN) SEE PROTOCOL TABLE Q6H [place] 02/15/19 12:00 03/01/19 12:22 DC 03/01/19 06:51 Insulin Human Lispro (HumaLOG INSULIN) SEE PROTOCOL TABLE QHS [place] 02/14/19 21:00 02/15/19 10:14 DC Insulin Human Lispro (HumaLOG INSULIN) SEE PROTOCOL TABLE QHS [place] 03/04/19 21:00 Lansoprazole (First-Lansoprazole Oral Suspension) 30 mg DAILY PEG 02/14/19 09:00 03/07/19 08:59 Lidocaine/ Diphenhydr/Alum/ Mg/Simeth (Magic Mouthwash) 5ml ASDIRECTED SSP 02/14/19 13:00 02/19/19 13:56 DC Lidocaine/ Diphenhydr/Alum/ Mg/Simeth (Magic Mouthwash) 5ml QID SSP 02/19/19 14:00 03/07/19 08:56 Meclizine HCl (Antivert) 25 mg Q8HP PRN PEG DIZZINESS 02/14/19 13:00 02/16/19 08:23 Metformin HCl (Glucophage Xr) 500 mg DAILY@18 PO 02/19/19 18:00 02/20/19 18:10 DC 02/19/19 17:48 Metformin HCl (Glucophage) 500 mg DAILY@18 PO 02/20/19 18:00 03/06/19 17:07 Metoprolol Succinate (TopROL XL) 12.5 mg DAILY PO 03/01/19 09:00 03/07/19 08:55 Metoprolol Tartrate (Lopressor) 25 mg BID PEG 02/14/19 21:00 02/28/19 10:30 DC 02/27/19 21:43 Miscellaneous (Unresolved Clarification Entry) SEE LABEL COMMENTS DAILY XX 02/26/19 09:00 02/27/19 07:51 DC Miscellaneous (Unresolved Clarification Entry) SEE LABEL COMMENTS DAILY XX 02/27/19 09:00 02/27/19 09:00 DC Miscellaneous (Unresolved Clarification Entry) SEE LABEL COMMENTS DAILY XX 03/05/19 09:00 03/05/19 14:50 DC Miscellaneous (Unresolved Patient Own Med Order) SEE LABEL COMMENTS DAILY XX 02/25/19 09:00 02/28/19 14:29 DC Omeprazole (PriLOSEC) 20 mg DAILY XX 02/15/19 09:00 02/15/19 09:00 DC Oxymetazoline HCl (Afrin) 2 spray ASDIRECTED PRN NA SEE LABEL COMMENTS 02/27/19 10:00 02/27/19 11:20 DC Patient Own Medication (Patient'S Own Med) 1 TABLET = 25MG TABLET DAILY PEG 03/01/19 09:00 Future hold 03/07/19 08:58 Ramipril (Altace) 2.5 mg DAILY PEG 02/15/19 09:00 03/07/19 08:56 Ramipril (Altace) 2.5 mg DAILY PEG 02/15/19 09:00 Cancel Saliva Substitute (Mouthkote) 1 sprays QID MT 02/18/19 17:00 03/07/19 08:59 Sitagliptin Phosphate (Januvia) 100 mg DAILY PEG 02/15/19 09:00 03/07/19 08:56 Trazodone HCl (Desyrel) 25 mg QHS PEG 02/17/19 21:00 UNV Trazodone HCl (Desyrel) 25 mg QHS PO 02/17/19 21:00 03/06/19 20:18 NAJMA DURBIN MD Mar 07, 2019 10:13
[2019-03-07] MEDS ORDERED: E-Z-PAQUE 96% w/w SUSP 176GM BTL As Ordered ONE (11:04)
[2019-03-07] MEDS ORDERED: VARIBAR NECTAR 40% w/v 240ML SUSP BTL As Ordered ONE (11:04)
[2019-03-07] MEDS ORDERED: VARIBAR PUDDING 40% w/v 230ML TUBE As Ordered ONE (11:04)
[2019-03-07] MEDS ORDERED: BARIUM SULFATE 700 MG TABLET (E-Z-DISK) As Ordered ONE (11:04)
[2019-03-07] MEDS: FLUoxetine 20 MG CAP PO SCH (12:51)
[2019-03-07 14:00] VITALS: BP 135/67
--- NOTE | 2019-03-07 16:28 | REP ---
COOKIE SWALLOW The procedure was performed under the direct supervision of Dr. Walters. The procedure was performed with Tanya Real from speech pathology present. 5 ml aliquots of nectar, pudding, honey, mixed fruit and soft solid consistency barium was administered. With nectar consistency barium there is aspiration. The detailed report of this examination will be provided by speech pathology. 1.1 minutes of fluoroscopy time was utilized for this procedure. Reviewed by LYNN Perez 03/07/2019 03:38 P Electronically Signed by August Walters MD 03/07/2019 04:19 P
[2019-03-07] MEDS: metFORMIN (GLUCOPHAGE) 500 MG TAB PO SCH (17:14)
[2019-03-07] MEDS: ATORVASTATIN 20 MG TAB PEG SCH (20:44)
[2019-03-07] MEDS: traZODone 25MG PER 1/2 TABLET PO SCH (20:44)
[2019-03-07 21:36] VITALS: BP 131/73
[2019-03-08] MEDS: IPRATROPIUM 0.5MG/ALBUTEROL 2.5MG INH SOL UD 3ML (DUONEB)(J7620) NEB SCH ×4 (02:00→19:45)
[2019-03-08 05:58] VITALS: BP 131/74
[2019-03-08] MEDS: METOPROLOL SUCC *XL* 12.5MG PER 1/2 TAB (TopROL *XL*) PO SCH (08:14)
[2019-03-08] MEDS: SITagliptin 50 MG TAB (JANUVIA) PEG SCH (08:14)
[2019-03-08] MEDS: DOCUSATE SOD LIQ 100MG/10ML UDC PO SCH (08:15)
[2019-03-08] MEDS: ASPIRIN 81 MG CHEW TABLET PEG SCH (08:15)
[2019-03-08] MEDS: ramipriL 1.25 MG CAP PEG SCH (08:15)
[2019-03-08] MEDS: PANTOPRAZOLE 40MG TAB (PROTONIX) PO SCH (08:15)
[2019-03-08] MEDS: GLIMEPIRIDE 2 MG TAB PEG SCH (08:15)
[2019-03-08] MEDS: JARDIANCE 25 MG PEG SCH (08:15)
[2019-03-08] MEDS: CLOPIDOGREL 75 MG TAB PEG SCH (08:15)
[2019-03-08] MEDS: HEPARIN SOD (PORCINE) 5000 UNITS/ML VIAL SC SCH ×2 (08:16→20:17)
[2019-03-08] MEDS: HumaLOG INSULIN (NovoLOG) PER UNIT SC SCH ×4 (08:16→20:18)
[2019-03-08] MEDS: MAGIC MOUTHWASH SUSPENSION BTL SSP SCH ×4 (08:17→20:17)
[2019-03-08] MEDS: SALIVA SUBSTITUTE(MOUTHKOTE) BTL MT SCH ×4 (08:19→20:18)
[2019-03-08] MEDS: FLUoxetine 20 MG CAP PO SCH (12:09)
--- NOTE | 2019-03-08 12:37 | IPNPDOC ---
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 REVIEW OF SYSTEMS: The following is a completed review of systems and has been reviewed. Review of systems otherwise unremarkable. PAIN: Patient self reports no pain EYES: No recent vision changes EARS, NOSE, & THROAT: No throat pain +dysphagia CARDIOVASCULAR: Denies chest pain or palpitations PULMONARY: Denies shortness of breath, no cough GASTROINTESTINAL: Denies constipation/diarrhea GENITOURINARY: no dysuria or incontinence MUSCULOSKELETAL: left hip replacement NEUROLOGICAL:left sides paresis HEMATOLOGICAL: negative SKIN:peg PSYCHIATRIC: Unremarkable All other review of systems found to be negative. PHYSICAL EXAMINATION: VITAL SIGNS: Please see below. GENERAL: Pleasant and cooperative. No acute distress. HEENT: PERRL. Extraocular movements intact. Clear conjunctiva. left facial droop with tongue deviation to the left CARDIOVASCULAR: Regular rate and rhythm. No murmurs, rubs, or gallops LUNGS: scattered rhonchi ABDOMEN: Soft, nontender, nondistended. Positive bowel sounds. Normal active bowel sounds. +PEG NEUROLOGICAL: Alert and oriented times three. Cranial nerves II, III, IV, V, , VIII grossly intact with deficits in VII, IX-XII on left. Sensation grossly intact in all 4 extremities +clonus 6 beats left foot, +babinski, brisk patellar reflex EXTREMITIES: 5\5 strength right upper extremities. 5\5 strength right lower extremity. 2+/5 biceps, 2/5 triceps 2/5 wrist extensor, 2/5 customer marketing manager, 2/5 hip flexion, knee extension, adduction, 1/5 ankle DF and EHL, 0/5 plantar flexion ASSESSMENT:68-year-old M with past medical history of HTN, DM, HLD who presents status post right pontine stroke PLAN: 1. 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 Neuro: s.p right pontine stroke with dysphagia and dense hemiplegia- c/u secondary stroke prevention ASA, plavix, statin, BP control -c/u Prozac for motor recovery and mood 3. Cardio- pmh HTN c/u BP meds, HTN c/u statin, medicine consulted to assist in management 4. Resp: encourage incentive spirometry, DuoNeb, Guaifenesin, flonase -CXR with no acute infiltrate, no leukocytosis -oral mouth rinse ordered 5. : monitor PVRs, Ucx negative 6. GI: PPI for ppx, bowel meds for optimal bowl care 7. Endo: pmh DM c/u Januvia and glimepiride with ISS coverage adjust prn, c/u Levemir coverage, metformin 500mg added, medicine recs appreciated 8. Nutrition- eating well, tube feeds held 9. DVT ppx: heparin and albin, dopplers negative for DVT bilat 10. Dispo: 03/15/19 to home, progressing towards goals Allergies Coded Allergies: No Known Allergies (Verified Allergy, Unknown, 02/14/19) Vital Signs Vital Signs Date Time Temp Pulse Resp B/P (MAP) Pulse Ox O2 Delivery O2 Flow Rate FiO2 03/08/19 08:14 63 131/74 03/08/19 05:58 97.2 18 96 Laboratory Data Labs 24H Laboratory Tests 2 03/07/19 17:03: Bedside Glucose (Misc Panel) 86 03/07/19 20:25: Bedside Glucose (Misc Panel) 152H 03/08/19 06:21: Bedside Glucose (Misc Panel) 112 03/08/19 11:43: Bedside Glucose (Misc Panel) 110 Current Medications Current Medications Current Medications Medications (Trade) Dose Ordered Sig/Hallie Route PRN Reason Start Time Stop Time Status Last Admin Dose Admin Albuterol Sulfate (Proventil Neb) 2.5 mg Q4HP PRN NEB SOB/WHEEZING 02/14/19 13:00 03/03/19 11:55 Albuterol/ Ipratropium (Duoneb (Ipr 0.5mg/Alb 2.5mg)) 3 ml RQ6H NEB 02/14/19 20:00 03/07/19 13:34 Aspirin (Aspirin Chewable) 81 mg DAILY PEG 02/15/19 09:00 03/08/19 08:15 Atorvastatin Calcium (Lipitor) 40 mg QHS PEG 02/14/19 21:00 03/07/19 20:44 Clopidogrel Bisulfate (PLAVix) 75 mg DAILY PEG 02/15/19 09:00 05/15/19 09:01 03/08/19 08:15 Dextrose (Dextrose 50%) 25 ml ASDIRECTED PRN IV SEE LABEL COMMENTS 02/14/19 13:00 02/15/19 10:27 DC Dextrose (Dextrose 50%) 25 ml ASDIRECTED PRN IV SEE LABEL COMMENTS 02/15/19 10:15 02/15/19 10:27 DC Dextrose (Dextrose 50%) 25 ml ASDIRECTED PRN IV SEE LABEL COMMENTS 03/05/19 18:45 Docusate Sodium (Colace Liquid) 100 mg BID PO 02/14/19 21:00 03/08/19 08:15 Fluoxetine HCl (PROzac) 20 mg DAILY PO 02/15/19 09:00 02/17/19 14:43 DC 02/17/19 09:22 Fluoxetine HCl (PROzac) 20 mg DAILY@1200 PO 02/18/19 12:00 03/08/19 12:09 Fluoxetine HCl (PROzac) 20 mg QHS PEG 02/15/19 21:00 02/15/19 21:00 DC Glimepiride (Amaryl) 4 mg DAILY@0730 PEG 02/15/19 07:30 03/08/19 08:15 Glucagon (Glucagon) 1 mg ASDIRECTED PRN SC SEE LABEL COMMENTS 02/14/19 13:00 02/15/19 10:27 DC Glucagon (Glucagon) 1 mg ASDIRECTED PRN SC SEE LABEL COMMENTS 02/15/19 10:15 02/15/19 10:27 DC Glucagon (Glucagon) 1 mg ASDIRECTED PRN SC SEE LABEL COMMENTS 03/05/19 18:45 Glucose (Glucose) 16 GM ASDIRECTED PRN PO SEE LABEL COMMENTS 02/14/19 13:00 02/15/19 10:27 DC Glucose (Glucose) 16 GM ASDIRECTED PRN PO SEE LABEL COMMENTS 02/15/19 10:15 02/15/19 10:27 DC Glucose (Glucose) 16 GM ASDIRECTED PRN PO SEE LABEL COMMENTS 03/05/19 18:45 Guaifenesin (Robitussin) 5 ml TID PEG 02/14/19 16:00 03/07/19 10:14 DC 03/07/19 08:54 Heparin Sodium (Porcine) (Heparin) 5,000 units Q12H [place] 02/14/19 21:00 03/08/19 08:16 Home Med (Med Rec Complete!) ASDIRECTED XX 02/14/19 14:15 02/14/19 14:56 DC Insulin Detemir (Levemir Insulin) 10 units QHS [place] 02/16/19 21:00 02/18/19 14:40 DC 02/17/19 21:37 Insulin Detemir (Levemir Insulin) 10 units QHS [place] 03/01/19 21:00 03/05/19 18:36 DC 03/04/19 21:19 Insulin Detemir (Levemir Insulin) 15 units QHS [place] 02/18/19 21:00 03/01/19 12:22 DC 02/28/19 20:53 Insulin Human Lispro (HumaLOG INSULIN) SEE PROTOCOL TABLE AC [place] 02/14/19 17:30 02/15/19 10:14 DC 02/14/19 19:48 Insulin Human Lispro (HumaLOG INSULIN) SEE PROTOCOL TABLE AC [place] 03/05/19 07:30 03/08/19 12:10 Insulin Human Lispro (HumaLOG INSULIN) SEE PROTOCOL TABLE ACHS [place] 03/01/19 17:30 03/04/19 21:00 DC 03/04/19 17:09 Insulin Human Lispro (HumaLOG INSULIN) SEE PROTOCOL TABLE ASDIRECTED [place] 02/15/19 12:00 02/15/19 12:00 DC Insulin Human Lispro (HumaLOG INSULIN) SEE PROTOCOL TABLE Q6H [place] 02/15/19 12:00 03/01/19 12:22 DC 03/01/19 06:51 Insulin Human Lispro (HumaLOG INSULIN) SEE PROTOCOL TABLE QHS [place] 02/14/19 21:00 02/15/19 10:14 DC Insulin Human Lispro (HumaLOG INSULIN) SEE PROTOCOL TABLE QHS [place] 03/04/19 21:00 Lansoprazole (First-Lansoprazole Oral Suspension) 30 mg DAILY PEG 02/14/19 09:00 03/07/19 10:14 DC 03/07/19 08:59 Lidocaine/ Diphenhydr/Alum/ Mg/Simeth (Magic Mouthwash) 5ml ASDIRECTED SSP 02/14/19 13:00 02/19/19 13:56 DC Lidocaine/ Diphenhydr/Alum/ Mg/Simeth (Magic Mouthwash) 5ml QID SSP 02/19/19 14:00 03/08/19 12:09 Meclizine HCl (Antivert) 25 mg Q8HP PRN PEG DIZZINESS 02/14/19 13:00 03/07/19 10:14 DC 02/16/19 08:23 Metformin HCl (Glucophage Xr) 500 mg DAILY@18 PO 02/19/19 18:00 02/20/19 18:10 DC 02/19/19 17:48 Metformin HCl (Glucophage) 500 mg DAILY@18 PO 02/20/19 18:00 03/07/19 17:14 Metoprolol Succinate (TopROL XL) 12.5 mg DAILY PO 03/01/19 09:00 03/08/19 08:14 Metoprolol Tartrate (Lopressor) 25 mg BID PEG 02/14/19 21:00 02/28/19 10:30 DC 02/27/19 21:43 Miscellaneous (Unresolved Clarification Entry) SEE LABEL COMMENTS DAILY XX 02/26/19 09:00 02/27/19 07:51 DC Miscellaneous (Unresolved Clarification Entry) SEE LABEL COMMENTS DAILY XX 02/27/19 09:00 02/27/19 09:00 DC Miscellaneous (Unresolved Clarification Entry) SEE LABEL COMMENTS DAILY XX 03/05/19 09:00 03/05/19 14:50 DC Miscellaneous (Unresolved Patient Own Med Order) SEE LABEL COMMENTS DAILY XX 02/25/19 09:00 02/28/19 14:29 DC Omeprazole (PriLOSEC) 20 mg DAILY XX 02/15/19 09:00 02/15/19 09:00 DC Oxymetazoline HCl (Afrin) 2 spray ASDIRECTED PRN NA SEE LABEL COMMENTS 02/27/19 10:00 02/27/19 11:20 DC Pantoprazole Sodium (Protonix) 40 mg DAILY PO 03/07/19 09:00 03/07/19 12:18 DC Pantoprazole Sodium (Protonix) 40 mg DAILY PO 03/08/19 09:00 03/08/19 08:15 Patient Own Medication (Patient'S Own Med) 1 TABLET = 25MG TABLET DAILY PEG 03/01/19 09:00 Future hold 03/08/19 08:15 Ramipril (Altace) 2.5 mg DAILY PEG 02/15/19 09:00 03/08/19 08:15 Ramipril (Altace) 2.5 mg DAILY PEG 02/15/19 09:00 Cancel Saliva Substitute (Mouthkote) 1 sprays QID MT 02/18/19 17:00 03/08/19 12:09 Sitagliptin Phosphate (Januvia) 100 mg DAILY PEG 02/15/19 09:00 03/08/19 08:14 Trazodone HCl (Desyrel) 25 mg QHS PEG 02/17/19 21:00 UNV Trazodone HCl (Desyrel) 25 mg QHS PO 02/17/19 21:00 03/07/19 20:44 NAJMA DURBIN MD Mar 08, 2019 12:37
[2019-03-08 14:00] VITALS: BP 100/60
[2019-03-08] MEDS: metFORMIN (GLUCOPHAGE) 500 MG TAB PO SCH (17:35)
[2019-03-08 20:00] VITALS: BP 130/94
[2019-03-08] MEDS: traZODone 25MG PER 1/2 TABLET PO SCH (20:16)
[2019-03-08] MEDS: DOCUSATE SODIUM 100 MG CAP PO SCH (20:17)
[2019-03-08] MEDS: ATORVASTATIN 20 MG TAB PEG SCH (20:17)
[2019-03-09] MEDS: IPRATROPIUM 0.5MG/ALBUTEROL 2.5MG INH SOL UD 3ML (DUONEB)(J7620) NEB SCH ×4 (02:00→18:07)
[2019-03-09 04:00] VITALS: BP 110/60
[2019-03-09] MEDS: HEPARIN SOD (PORCINE) 5000 UNITS/ML VIAL SC SCH ×2 (08:50→20:42)
[2019-03-09] MEDS: JARDIANCE 25 MG PEG SCH (08:50)
[2019-03-09] MEDS: ASPIRIN 81 MG CHEW TABLET PEG SCH (08:50)
[2019-03-09] MEDS: GLIMEPIRIDE 2 MG TAB PEG SCH (08:50)
[2019-03-09] MEDS: DOCUSATE SODIUM 100 MG CAP PO SCH ×2 (08:51→20:42)
[2019-03-09] MEDS: SITagliptin 50 MG TAB (JANUVIA) PEG SCH (08:51)
[2019-03-09] MEDS: PANTOPRAZOLE 40MG TAB (PROTONIX) PO SCH (08:51)
[2019-03-09] MEDS: CLOPIDOGREL 75 MG TAB PEG SCH (08:51)
[2019-03-09] MEDS: METOPROLOL SUCC *XL* 12.5MG PER 1/2 TAB (TopROL *XL*) PO SCH (08:51)
[2019-03-09] MEDS: ramipriL 1.25 MG CAP PEG SCH (08:51)
[2019-03-09] MEDS: MAGIC MOUTHWASH SUSPENSION BTL SSP SCH ×4 (08:52→20:43)
[2019-03-09] MEDS: HumaLOG INSULIN (NovoLOG) PER UNIT SC SCH ×4 (08:52→20:44)
[2019-03-09] MEDS: SALIVA SUBSTITUTE(MOUTHKOTE) BTL MT SCH ×4 (08:53→20:43)
[2019-03-09] MEDS: FLUoxetine 20 MG CAP PO SCH (12:10)
--- NOTE | 2019-03-09 12:38 | IPNPDOC ---
Date Seen The patient was seen on 03/09/19. Progress Note SUBJECTIVE: says he is trying his best to get home. did well with trial of po diet without aspiration, cough. "I can't drink yet." pt c/o of not being able to have thin liquids. no fever, chills. back on home diabetic regimen. was Working with physical therapy,walking down the hallway with his gait belt. OBJECTIVE: VITALS:pls see below Generally, the patient is awake, alert, oriented times three.slight slurring of speech. at times with persistent but improved expressive aphasia. HEENT: Face is symmetric. Tongue is midline. Moist mucous membranes. No jaundice. Anicteric. Speaks in full sentences. No conversational dyspnea. Heart: S1, S2, irregularly irregular. No jugular venous distention (JVD). No murmurs noted. Lungs: Clear to auscultation. No wheezing, rales, or rhonchi. Abdomen: Positive bowel sounds. Soft. Nontender. non distended. PEG. trial of po Neurologic: Awake, alert, oriented times three. Left upper and lower extremity with persistent 4/5 weakness. 03/02/2019 complete blood count (CBC) and metabolic panel have been reviewed. ASSESSMENT AND PLAN: This is a 68-year-old male with past medical history significant for hypertension, hyperlipidemia, diabetes, obesity, metabolic syndrome admitted to [facility] on 02/06/2019 with complaints of left-sided hemiplegia and slurred speech. CT of the head was negative for intracranial hemorrhage. MRI showed wide pontine cerebrovascular accident (CVA). CT angiography of the neck and head showed no large vessel occlusion. The patient was started on aspirin and Plavix. Echocardiogram showed no regional wall motion abnormality, no interatrial shunt by color Doppler and bubble study. Due to severe dysphasia, the patient underwent feeding tube placement with a percutaneous endoscopic gastrostomy (PEG) tube on 02/12/2019 and was transferred to [facility] on 02/14/2019 for acute rehabilitation. CURRENT ISSUES: Are as follows: Right pontine cerebrovascular accident. Pt has been cooperative and has been working with Physical therapy (PT) and occupational therapy (OT) , with discharge plans for 03/17/19 . He is continued on ASA, plavix, and lipitor. The patient is exhibiting some improvement. The patient uses splinting in the right arm for activities of daily living (ADLs). Dysphagia secondary to right pontine cerebrovascular accident. Modified barium swallow on 02/27/2019 with recommendations for po food trials. doing well with his oral diet, but still not permitted to have thin liquids Hypertension. Stable. Diabetes. Better controlled. on home diabetic meds sliding scale with coverage and qac hs fingersticks. Deep venous thrombosis (DVT) prophylaxis with thromboembolic deterrents (TEDs) and heparin subcutaneous. Dopplers on lower extremities has been negative. disposition: dc plans for 03/17/19. VS, I&O, 24H, Fishbone Vital Signs/I&O Vital Signs Date Time Temp Pulse Resp B/P (MAP) Pulse Ox O2 Delivery O2 Flow Rate FiO2 03/09/19 08:51 68 110/60 03/09/19 04:00 96.8 18 93 I&O- Last 24 Hours up to 6 AM 03/09/19 06:00 Intake Total 1835 ml Balance 1835 ml Laboratory Data 24H LABS Laboratory Tests 2 03/08/19 16:50: Bedside Glucose (Misc Panel) 111 03/08/19 20:07: Bedside Glucose (Misc Panel) 165H 03/09/19 07:04: Bedside Glucose (Misc Panel) 166H 03/09/19 11:52: Bedside Glucose (Misc Panel) 86 PAMELA AUGUSTINE MD Mar 09, 2019 12:38
[2019-03-09 14:00] VITALS: BP 126/84
[2019-03-09] MEDS: metFORMIN (GLUCOPHAGE) 500 MG TAB PO SCH (17:29)
[2019-03-09 19:48] VITALS: BP 118/63
[2019-03-09] MEDS: traZODone 25MG PER 1/2 TABLET PO SCH (20:42)
[2019-03-09] MEDS: ATORVASTATIN 20 MG TAB PEG SCH (20:43)
[2019-03-10] MEDS: IPRATROPIUM 0.5MG/ALBUTEROL 2.5MG INH SOL UD 3ML (DUONEB)(J7620) NEB SCH ×4 (05:36→19:56)
[2019-03-10 06:00] VITALS: BP 120/62
[2019-03-10] MEDS: ASPIRIN 81 MG CHEW TABLET PEG SCH (07:41)
[2019-03-10] MEDS: JARDIANCE 25 MG PEG SCH (07:41)
[2019-03-10] MEDS: CLOPIDOGREL 75 MG TAB PEG SCH (07:42)
[2019-03-10] MEDS: PANTOPRAZOLE 40MG TAB (PROTONIX) PO SCH (07:42)
[2019-03-10] MEDS: DOCUSATE SODIUM 100 MG CAP PO SCH ×2 (07:42→20:27)
[2019-03-10] MEDS: ramipriL 1.25 MG CAP PEG SCH (07:42)
[2019-03-10] MEDS: GLIMEPIRIDE 2 MG TAB PEG SCH (07:42)
[2019-03-10] MEDS: SITagliptin 50 MG TAB (JANUVIA) PEG SCH (07:43)
[2019-03-10] MEDS: METOPROLOL SUCC *XL* 12.5MG PER 1/2 TAB (TopROL *XL*) PO SCH (07:43)
[2019-03-10] MEDS: HEPARIN SOD (PORCINE) 5000 UNITS/ML VIAL SC SCH ×2 (07:43→20:27)
[2019-03-10] MEDS: HumaLOG INSULIN (NovoLOG) PER UNIT SC SCH ×4 (07:43→20:29)
[2019-03-10] MEDS: SALIVA SUBSTITUTE(MOUTHKOTE) BTL MT SCH ×4 (07:44→20:26)
[2019-03-10] MEDS: MAGIC MOUTHWASH SUSPENSION BTL SSP SCH ×4 (07:44→20:27)
[2019-03-10] MEDS: FLUoxetine 20 MG CAP PO SCH (12:01)
[2019-03-10 14:00] VITALS: BP 129/74
[2019-03-10] MEDS: metFORMIN (GLUCOPHAGE) 500 MG TAB PO SCH (16:57)
[2019-03-10 20:00] VITALS: BP 138/77
[2019-03-10] MEDS: traZODone 25MG PER 1/2 TABLET PO SCH (20:27)
[2019-03-10] MEDS: ATORVASTATIN 20 MG TAB PEG SCH (20:27)
[2019-03-11] MEDS: IPRATROPIUM 0.5MG/ALBUTEROL 2.5MG INH SOL UD 3ML (DUONEB)(J7620) NEB SCH ×4 (02:00→20:00)
[2019-03-11] MEDS: HEPARIN SOD (PORCINE) 5000 UNITS/ML VIAL SC SCH ×2 (08:19→21:17)
[2019-03-11] MEDS: ramipriL 1.25 MG CAP PEG SCH (08:20)
[2019-03-11] MEDS: PANTOPRAZOLE 40MG TAB (PROTONIX) PO SCH (08:20)
[2019-03-11] MEDS: ASPIRIN 81 MG CHEW TABLET PEG SCH (08:20)
[2019-03-11] MEDS: CLOPIDOGREL 75 MG TAB PEG SCH (08:20)
[2019-03-11] MEDS: HumaLOG INSULIN (NovoLOG) PER UNIT SC SCH ×4 (08:20→21:00)
[2019-03-11] MEDS: DOCUSATE SODIUM 100 MG CAP PO SCH ×2 (08:20→21:17)
[2019-03-11] MEDS: SALIVA SUBSTITUTE(MOUTHKOTE) BTL MT SCH ×4 (08:21→21:00)
[2019-03-11] MEDS: METOPROLOL SUCC *XL* 12.5MG PER 1/2 TAB (TopROL *XL*) PO SCH (08:21)
[2019-03-11] MEDS: SITagliptin 50 MG TAB (JANUVIA) PEG SCH (08:21)
[2019-03-11] MEDS: GLIMEPIRIDE 2 MG TAB PEG SCH (08:21)
[2019-03-11] MEDS: JARDIANCE 25 MG PEG SCH (08:21)
[2019-03-11] MEDS: MAGIC MOUTHWASH SUSPENSION BTL SSP SCH ×4 (08:22→21:18)
[2019-03-11] MEDS: FLUoxetine 20 MG CAP PO SCH (13:32)
[2019-03-11 14:00] VITALS: BP 130/72
[2019-03-11] MEDS: metFORMIN (GLUCOPHAGE) 500 MG TAB PO SCH (17:13)
[2019-03-11 20:30] VITALS: BP 129/76
[2019-03-11] MEDS: traZODone 25MG PER 1/2 TABLET PO SCH (21:17)
[2019-03-11] MEDS: ATORVASTATIN 20 MG TAB PEG SCH (21:17)
[2019-03-12] MEDS: IPRATROPIUM 0.5MG/ALBUTEROL 2.5MG INH SOL UD 3ML (DUONEB)(J7620) NEB SCH ×4 (02:00→19:28)
[2019-03-12 06:00] VITALS: BP 115/75
[2019-03-12 07:10] LABS: BASO % 0.5 % (0.0-1.0); EOS # 0.1 10^3/uL (0.0-0.5); EOS % 3.2 % (0.0-3.0); HEMATOCRIT 45.8 % (42.0-52.0); HEMOGLOBIN 15.2 g/dl (13.5-17.5); LYMPH # 1.1 10^3/uL (1.5-5.0); LYMPH % 27.4 % (24.0-44.0); MEAN CORPUSCULAR HEMOGLOBIN 28.4 pg (27.0-33.0); MEAN CORPUSCULAR HGB CONC 33.2 g/dl (32.0-36.5); MEAN CORPUSCULAR VOLUME 85.6 fl (80.0-96.0); MONO # 0.5 10^3/uL (0.0-0.8); MONO % 12.3 % (0.0-5.0); NEUTROPHILS # 2.3 10^3/uL (1.5-8.5); NEUTROPHILS % 56.1 % (36.0-66.0); PLATELET COUNT, AUTOMATED 145 10^3/uL (150-450); RED BLOOD COUNT 5.35 10^6/uL (4.30-6.10); WHITE BLOOD COUNT 4.1 10^3/uL (4.0-10.0)
[2019-03-12 07:29] LABS: BLOOD UREA NITROGEN 14 MG/DL (7-18); CARBON DIOXIDE LEVEL 27 MEQ/L (21-32); CHLORIDE LEVEL 101 MEQ/L (98-107); CREATININE FOR GFR 0.88 MG/DL (0.70-1.30); GLOMERULAR FILTRATION RATE > 60.0 (>49); GLUCOSE, FASTING 104 MG/DL (70-100); POTASSIUM SERUM 3.8 MEQ/L (3.5-5.1); SODIUM LEVEL 139 MEQ/L (136-145)
[2019-03-12] MEDS: HumaLOG INSULIN (NovoLOG) PER UNIT SC SCH ×4 (07:30→21:00)
[2019-03-12] MEDS: CLOPIDOGREL 75 MG TAB PEG SCH (08:25)
[2019-03-12] MEDS: ASPIRIN 81 MG CHEW TABLET PEG SCH (08:25)
[2019-03-12] MEDS: HEPARIN SOD (PORCINE) 5000 UNITS/ML VIAL SC SCH ×2 (08:25→21:28)
[2019-03-12] MEDS: ramipriL 1.25 MG CAP PEG SCH (08:26)
[2019-03-12] MEDS: SITagliptin 50 MG TAB (JANUVIA) PEG SCH (08:26)
[2019-03-12] MEDS: PANTOPRAZOLE 40MG TAB (PROTONIX) PO SCH (08:26)
[2019-03-12] MEDS: JARDIANCE 25 MG PEG SCH (08:27)
[2019-03-12] MEDS: GLIMEPIRIDE 2 MG TAB PEG SCH (08:27)
[2019-03-12] MEDS: DOCUSATE SODIUM 100 MG CAP PO SCH ×2 (08:27→21:28)
[2019-03-12] MEDS: METOPROLOL SUCC *XL* 12.5MG PER 1/2 TAB (TopROL *XL*) PO SCH (08:27)
[2019-03-12] MEDS: SALIVA SUBSTITUTE(MOUTHKOTE) BTL MT SCH ×4 (08:28→21:28)
[2019-03-12] MEDS: MAGIC MOUTHWASH SUSPENSION BTL SSP SCH ×4 (08:29→21:28)
[2019-03-12] MEDS: FLUoxetine 20 MG CAP PO SCH (12:38)
[2019-03-12 14:00] VITALS: BP 128/77
--- NOTE | 2019-03-12 14:31 | IPNPDOC ---
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 REVIEW OF SYSTEMS: The following is a completed review of systems and has been reviewed. Review of systems otherwise unremarkable. PAIN: Patient self reports no pain EYES: No recent vision changes EARS, NOSE, & THROAT: No throat pain +dysphagia CARDIOVASCULAR: Denies chest pain or palpitations PULMONARY: Denies shortness of breath, no cough GASTROINTESTINAL: Denies constipation/diarrhea GENITOURINARY: no dysuria or incontinence MUSCULOSKELETAL: left hip replacement NEUROLOGICAL:left sides paresis HEMATOLOGICAL: negative SKIN:peg PSYCHIATRIC: Unremarkable All other review of systems found to be negative. PHYSICAL EXAMINATION: VITAL SIGNS: Please see below. GENERAL: Pleasant and cooperative. No acute distress. HEENT: PERRL. Extraocular movements intact. Clear conjunctiva. left facial droop with tongue deviation to the left CARDIOVASCULAR: Regular rate and rhythm. No murmurs, rubs, or gallops LUNGS: scattered rhonchi ABDOMEN: Soft, nontender, nondistended. Positive bowel sounds. Normal active bowel sounds. +PEG NEUROLOGICAL: Alert and oriented times three. Cranial nerves II, III, IV, V, , VIII grossly intact with deficits in VII, IX-XII on left. Sensation grossly intact in all 4 extremities +clonus 6 beats left foot, +babinski, brisk patellar reflex EXTREMITIES: 5\5 strength right upper extremities. 5\5 strength right lower extremity. 2+/5 biceps, 2/5 triceps 2/5 wrist extensor, 2/5 national coverage specialist, 2/5 hip flexion, knee extension, adduction, 1/5 ankle DF and EHL, 0/5 plantar flexion ASSESSMENT:68-year-old M with past medical history of HTN, DM, HLD who presents status post right pontine stroke PLAN: 1. 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 Neuro: s.p right pontine stroke with dysphagia and dense hemiplegia- c/u secondary stroke prevention ASA, plavix, statin, BP control -c/u Prozac for motor recovery and mood 3. Cardio- pmh HTN c/u BP meds, HTN c/u statin, medicine consulted to assist in management 4. Resp: encourage incentive spirometry, DuoNeb, Guaifenesin, flonase -CXR with no acute infiltrate, no leukocytosis -oral mouth rinse ordered 5. : monitor PVRs, Ucx negative 6. GI: PPI for ppx, bowel meds for optimal bowl care 7. Endo: pmh DM c/u Januvia and glimepiride with ISS coverage adjust prn, c/u Levemir coverage, metformin 500mg added, medicine recs appreciated 8. Nutrition- eating well, tube feeds held 9. DVT ppx: heparin and albin, dopplers negative for DVT bilat 10. Dispo: 03/15/19 to home, progressing towards goals Allergies Coded Allergies: No Known Allergies (Verified Allergy, Unknown, 02/14/19) Vital Signs Vital Signs Date Time Temp Pulse Resp B/P (MAP) Pulse Ox O2 Delivery O2 Flow Rate FiO2 03/12/19 08:27 61 115/75 03/12/19 06:00 97.6 17 95 Laboratory Data CBC/BMP Laboratory Tests 03/12/19 06:30 Red Blood Count 5.35, Mean Corpuscular Volume 85.6, Mean Corpuscular Hemoglobin 28.4, Mean Corpuscular Hemoglobin Concent 33.2, Red Cell Distribution Width 13.2, Neutrophils (%) (Auto) 56.1, Lymphocytes (%) (Auto) 27.4, Monocytes (%) (Auto) 12.3 H, Eosinophils (%) (Auto) 3.2 H, Basophils (%) (Auto) 0.5, Neutrophils # (Auto) 2.3, Lymphocytes # (Auto) 1.1 L, Monocytes # (Auto) 0.5, Eosinophils # (Auto) 0.1, Basophils # (Auto) 0.0, Calcium Level 9.0 Labs 24H Laboratory Tests 2 03/11/19 16:58: Bedside Glucose (Misc Panel) 111 03/11/19 19:38: Bedside Glucose (Misc Panel) 185H 03/12/19 05:28: Bedside Glucose (Misc Panel) 97 03/12/19 06:30: Immature Granulocyte % (Auto) 0.5, White Blood Count 4.1, Red Blood Count 5.35, Hemoglobin 15.2, Hematocrit 45.8, Mean Corpuscular Volume 85.6, Mean Corpuscular Hemoglobin 28.4, Mean Corpuscular Hemoglobin Concent 33.2, Red Cell Distribution Width 13.2, Platelet Count 145L, Neutrophils (%) (Auto) 56.1, Lymphocytes (%) (Auto) 27.4, Monocytes (%) (Auto) 12.3H, Eosinophils (%) (Auto) 3.2H, Basophils (%) (Auto) 0.5, Neutrophils # (Auto) 2.3, Lymphocytes # (Auto) 1.1L, Monocytes # (Auto) 0.5, Eosinophils # (Auto) 0.1, Basophils # (Auto) 0.0, Nucleated Red Blood Cells % (auto) 0.0, Anion Gap 11, Glomerular Filtration Rate > 60.0, Blood Urea Nitrogen 14, Creatinine 0.88, Sodium Level 139, Potassium Level 3.8, Chloride Level 101, Carbon Dioxide Level 27, Calcium Level 9.0 03/12/19 11:56: Bedside Glucose (Misc Panel) 144H Current Medications Current Medications Current Medications Medications (Trade) Dose Ordered Sig/Hallie Route PRN Reason Start Time Stop Time Status Last Admin Dose Admin Albuterol Sulfate (Proventil Neb) 2.5 mg Q4HP PRN NEB SOB/WHEEZING 02/14/19 13:00 03/03/19 11:55 Albuterol/ Ipratropium (Duoneb (Ipr 0.5mg/Alb 2.5mg)) 3 ml RQ6H NEB 02/14/19 20:00 03/12/19 13:03 Aspirin (Aspirin Chewable) 81 mg DAILY PEG 02/15/19 09:00 03/12/19 08:25 Atorvastatin Calcium (Lipitor) 40 mg QHS PEG 02/14/19 21:00 03/11/19 21:17 Clopidogrel Bisulfate (PLAVix) 75 mg DAILY PEG 02/15/19 09:00 05/15/19 09:01 03/12/19 08:25 Dextrose (Dextrose 50%) 25 ml ASDIRECTED PRN IV SEE LABEL COMMENTS 02/14/19 13:00 02/15/19 10:27 DC Dextrose (Dextrose 50%) 25 ml ASDIRECTED PRN IV SEE LABEL COMMENTS 02/15/19 10:15 02/15/19 10:27 DC Dextrose (Dextrose 50%) 25 ml ASDIRECTED PRN IV SEE LABEL COMMENTS 03/05/19 18:45 Docusate Sodium (Colace Liquid) 100 mg BID PO 02/14/19 21:00 03/08/19 13:56 DC 03/08/19 08:15 Docusate Sodium (Colace) 100 mg BID PO 03/08/19 21:00 03/12/19 08:27 Fluoxetine HCl (PROzac) 20 mg DAILY PO 02/15/19 09:00 02/17/19 14:43 DC 02/17/19 09:22 Fluoxetine HCl (PROzac) 20 mg DAILY@1200 PO 02/18/19 12:00 03/12/19 12:38 Fluoxetine HCl (PROzac) 20 mg QHS PEG 02/15/19 21:00 02/15/19 21:00 DC Glimepiride (Amaryl) 4 mg DAILY@0730 PEG 02/15/19 07:30 03/12/19 08:27 Glucagon (Glucagon) 1 mg ASDIRECTED PRN SC SEE LABEL COMMENTS 02/14/19 13:00 02/15/19 10:27 DC Glucagon (Glucagon) 1 mg ASDIRECTED PRN SC SEE LABEL COMMENTS 02/15/19 10:15 02/15/19 10:27 DC Glucagon (Glucagon) 1 mg ASDIRECTED PRN SC SEE LABEL COMMENTS 03/05/19 18:45 Glucose (Glucose) 16 GM ASDIRECTED PRN PO SEE LABEL COMMENTS 02/14/19 13:00 02/15/19 10:27 DC Glucose (Glucose) 16 GM ASDIRECTED PRN PO SEE LABEL COMMENTS 02/15/19 10:15 02/15/19 10:27 DC Glucose (Glucose) 16 GM ASDIRECTED PRN PO SEE LABEL COMMENTS 03/05/19 18:45 Guaifenesin (Robitussin) 5 ml TID PEG 02/14/19 16:00 03/07/19 10:14 DC 03/07/19 08:54 Heparin Sodium (Porcine) (Heparin) 5,000 units Q12H SC 02/14/19 21:00 03/12/19 08:25 Home Med (Med Rec Complete!) ASDIRECTED XX 02/14/19 14:15 02/14/19 14:56 DC Insulin Detemir (Levemir Insulin) 10 units QHS [place] 02/16/19 21:00 02/18/19 14:40 DC 02/17/19 21:37 Insulin Detemir (Levemir Insulin) 10 units QHS [place] 03/01/19 21:00 03/05/19 18:36 DC 03/04/19 21:19 [facility] 02/[facility] 21:00 03/01/19 12:22 DC 02/28/19 20:53 Insulin Human Lispro (HumaLOG INSULIN) SEE PROTOCOL TABLE AC [place] 02/14/19 17:30 02/15/19 10:14 DC 02/14/19 19:48 Insulin Human Lispro (HumaLOG INSULIN) SEE PROTOCOL TABLE AC [place] 03/05/19 07:30 03/12/19 12:39 Insulin Human Lispro (HumaLOG INSULIN) SEE PROTOCOL TABLE ACHS [place] 03/01/19 17:30 03/04/19 21:00 DC 03/04/19 17:09 Insulin Human Lispro (HumaLOG INSULIN) SEE PROTOCOL TABLE ASDIRECTED [place] 02/15/19 12:00 02/15/19 12:00 DC Insulin Human Lispro (HumaLOG INSULIN) SEE PROTOCOL TABLE Q6H [place] 02/15/19 12:00 03/01/19 12:22 DC 03/01/19 06:51 Insulin Human Lispro (HumaLOG INSULIN) SEE PROTOCOL TABLE QHS [place] 02/14/19 21:00 02/15/19 10:14 DC Insulin Human Lispro (HumaLOG INSULIN) SEE PROTOCOL TABLE QHS [place] 03/04/19 21:00 Lansoprazole (First-Lansoprazole Oral Suspension) 30 mg DAILY PEG 02/14/19 09:00 03/07/19 10:14 DC 03/07/19 08:59 Lidocaine/ Diphenhydr/Alum/ Mg/Simeth (Magic Mouthwash) 5ml ASDIRECTED SSP 02/14/19 13:00 02/19/19 13:56 DC Lidocaine/ Diphenhydr/Alum/ Mg/Simeth (Magic Mouthwash) 5ml QID SSP 02/19/19 14:00 03/12/19 12:39 Meclizine HCl (Antivert) 25 mg Q8HP PRN PEG DIZZINESS 02/14/19 13:00 03/07/19 10:14 DC 02/16/19 08:23 Metformin HCl (Glucophage Xr) 500 mg DAILY@18 PO 02/19/19 18:00 02/20/19 18:10 DC 02/19/19 17:48 Metformin HCl (Glucophage) 500 mg DAILY@18 PO 02/20/19 18:00 03/11/19 17:13 Metoprolol Succinate (TopROL XL) 12.5 mg DAILY PO 03/01/19 09:00 03/12/19 08:27 Metoprolol Tartrate (Lopressor) 25 mg BID PEG 02/14/19 21:00 02/28/19 10:30 DC 02/27/19 21:43 Miscellaneous (Unresolved Clarification Entry) SEE LABEL COMMENTS DAILY XX 02/26/19 09:00 02/27/19 07:51 DC Miscellaneous (Unresolved Clarification Entry) SEE LABEL COMMENTS DAILY XX 02/27/19 09:00 02/27/19 09:00 DC Miscellaneous (Unresolved Clarification Entry) SEE LABEL COMMENTS DAILY XX 03/05/19 09:00 03/05/19 14:50 DC Miscellaneous (Unresolved Patient Own Med Order) SEE LABEL COMMENTS DAILY XX 02/25/19 09:00 02/28/19 14:29 DC Omeprazole (PriLOSEC) 20 mg DAILY XX 02/15/19 09:00 02/15/19 09:00 DC Oxymetazoline HCl (Afrin) 2 spray ASDIRECTED PRN NA SEE LABEL COMMENTS 02/27/19 10:00 02/27/19 11:20 DC Pantoprazole Sodium (Protonix) 40 mg DAILY PO 03/07/19 09:00 03/07/19 12:18 DC Pantoprazole Sodium (Protonix) 40 mg DAILY PO 03/08/19 09:00 03/12/19 08:26 Patient Own Medication (Patient'S Own Med) 1 TABLET = 25MG TABLET DAILY PEG 03/01/19 09:00 Future hold 03/12/19 08:27 Ramipril (Altace) 2.5 mg DAILY PEG 02/15/19 09:00 03/12/19 08:26 Ramipril (Altace) 2.5 mg DAILY PEG 02/15/19 09:00 Cancel Saliva Substitute (Mouthkote) 1 sprays QID MT 02/18/19 17:00 03/12/19 12:39 Sitagliptin Phosphate (Januvia) 100 mg DAILY PEG 02/15/19 09:00 03/12/19 08:26 Trazodone HCl (Desyrel) 25 mg QHS PEG 02/17/19 21:00 UNV Trazodone HCl (Desyrel) 25 mg QHS PO 02/17/19 21:00 03/11/19 21:17 NAJMA DURBIN MD Mar 12, 2019 14:31
--- NOTE | 2019-03-12 14:31 | IPNPDOC ---
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 He is happy his diet is upgraded. REVIEW OF SYSTEMS: The following is a completed review of systems and has been reviewed. Review of systems otherwise unremarkable. PAIN: Patient self reports no pain EYES: No recent vision changes EARS, NOSE, & THROAT: No throat pain +dysphagia CARDIOVASCULAR: Denies chest pain or palpitations PULMONARY: Denies shortness of breath, no cough GASTROINTESTINAL: Denies constipation/diarrhea GENITOURINARY: no dysuria or incontinence MUSCULOSKELETAL: left hip replacement NEUROLOGICAL:left sides paresis HEMATOLOGICAL: negative SKIN:peg PSYCHIATRIC: Unremarkable All other review of systems found to be negative. PHYSICAL EXAMINATION: VITAL SIGNS: Please see below. GENERAL: Pleasant and cooperative. No acute distress. HEENT: PERRL. Extraocular movements intact. Clear conjunctiva. left facial droop with tongue deviation to the left CARDIOVASCULAR: Regular rate and rhythm. No murmurs, rubs, or gallops LUNGS: scattered rhonchi ABDOMEN: Soft, nontender, nondistended. Positive bowel sounds. Normal active bowel sounds. +PEG NEUROLOGICAL: Alert and oriented times three. Cranial nerves II, III, IV, V, , VIII grossly intact with deficits in VII, IX-XII on left. Sensation grossly intact in all 4 extremities +clonus 6 beats left foot, +babinski, brisk patellar reflex EXTREMITIES: 5\5 strength right upper extremities. 5\5 strength right lower extremity. 2+/5 biceps, 2/5 triceps 2/5 wrist extensor, 2/5 stick feeder, 2/5 hip flexion, knee extension, adduction, 1/5 ankle DF and EHL, 0/5 plantar flexion ASSESSMENT:68-year-old M with past medical history of HTN, DM, HLD who presents status post right pontine stroke PLAN: 1. 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 Neuro: s.p right pontine stroke with dysphagia and dense hemiplegia- c/u secondary stroke prevention ASA, plavix, statin, BP control -c/u Prozac for motor recovery and mood 3. Cardio- pmh HTN c/u BP meds, HTN c/u statin, medicine consulted to assist in management 4. Resp: encourage incentive spirometry, DuoNeb, Guaifenesin, flonase -CXR with no acute infiltrate, no leukocytosis -oral mouth rinse ordered 5. : monitor PVRs, Ucx negative 6. GI: PPI for ppx, bowel meds for optimal bowl care 7. Endo: pmh DM c/u Januvia and glimepiride with ISS coverage adjust prn, c/u Levemir coverage, metformin 500mg added, medicine recs appreciated 8. Nutrition- eating well, tube feeds held 9. DVT ppx: heparin and albin, dopplers negative for DVT bilat 10. Dispo: 03/15/19 to home, progressing towards goals Allergies Coded Allergies: No Known Allergies (Verified Allergy, Unknown, 02/14/19) Vital Signs Vital Signs Date Time Temp Pulse Resp B/P (MAP) Pulse Ox O2 Delivery O2 Flow Rate FiO2 03/12/19 08:27 61 115/75 03/12/19 06:00 97.6 17 95 Laboratory Data CBC/BMP Laboratory Tests 03/12/19 06:30 Red Blood Count 5.35, Mean Corpuscular Volume 85.6, Mean Corpuscular Hemoglobin 28.4, Mean Corpuscular Hemoglobin Concent 33.2, Red Cell Distribution Width 13.2, Neutrophils (%) (Auto) 56.1, Lymphocytes (%) (Auto) 27.4, Monocytes (%) (Auto) 12.3 H, Eosinophils (%) (Auto) 3.2 H, Basophils (%) (Auto) 0.5, Neutrophils # (Auto) 2.3, Lymphocytes # (Auto) 1.1 L, Monocytes # (Auto) 0.5, Eosinophils # (Auto) 0.1, Basophils # (Auto) 0.0, Calcium Level 9.0 Labs 24H Laboratory Tests 2 03/11/19 16:58: Bedside Glucose (Misc Panel) 111 03/11/19 19:38: Bedside Glucose (Misc Panel) 185H 03/12/19 05:28: Bedside Glucose (Misc Panel) 97 03/12/19 06:30: Immature Granulocyte % (Auto) 0.5, White Blood Count 4.1, Red Blood Count 5.35, Hemoglobin 15.2, Hematocrit 45.8, Mean Corpuscular Volume 85.6, Mean Corpuscular Hemoglobin 28.4, Mean Corpuscular Hemoglobin Concent 33.2, Red Cell Distribution Width 13.2, Platelet Count 145L, Neutrophils (%) (Auto) 56.1, Lymphocytes (%) (Auto) 27.4, Monocytes (%) (Auto) 12.3H, Eosinophils (%) (Auto) 3.2H, Basophils (%) (Auto) 0.5, Neutrophils # (Auto) 2.3, Lymphocytes # (Auto) 1.1L, Monocytes # (Auto) 0.5, Eosinophils # (Auto) 0.1, Basophils # (Auto) 0.0, Nucleated Red Blood Cells % (auto) 0.0, Anion Gap 11, Glomerular Filtration Rate > 60.0, Blood Urea Nitrogen 14, Creatinine 0.88, Sodium Level 139, Potassium Level 3.8, Chloride Level 101, Carbon Dioxide Level 27, Calcium Level 9.0 03/12/19 11:56: Bedside Glucose (Misc Panel) 144H Current Medications Current Medications Current Medications Medications (Trade) Dose Ordered Sig/Hallie Route PRN Reason Start Time Stop Time Status Last Admin Dose Admin Albuterol Sulfate (Proventil Neb) 2.5 mg Q4HP PRN NEB SOB/WHEEZING 02/14/19 13:00 03/03/19 11:55 Albuterol/ Ipratropium (Duoneb (Ipr 0.5mg/Alb 2.5mg)) 3 ml RQ6H NEB 02/14/19 20:00 03/12/19 13:03 Aspirin (Aspirin Chewable) 81 mg DAILY PEG 02/15/19 09:00 03/12/19 08:25 Atorvastatin Calcium (Lipitor) 40 mg QHS PEG 02/14/19 21:00 03/11/19 21:17 Clopidogrel Bisulfate (PLAVix) 75 mg DAILY PEG 02/15/19 09:00 05/15/19 09:01 03/12/19 08:25 Dextrose (Dextrose 50%) 25 ml ASDIRECTED PRN IV SEE LABEL COMMENTS 02/14/19 13:00 02/15/19 10:27 DC Dextrose (Dextrose 50%) 25 ml ASDIRECTED PRN IV SEE LABEL COMMENTS 02/15/19 10:15 02/15/19 10:27 DC Dextrose (Dextrose 50%) 25 ml ASDIRECTED PRN IV SEE LABEL COMMENTS 03/05/19 18:45 Docusate Sodium (Colace Liquid) 100 mg BID PO 02/14/19 21:00 03/08/19 13:56 DC 03/08/19 08:15 Docusate Sodium (Colace) 100 mg BID PO 03/08/19 21:00 03/12/19 08:27 Fluoxetine HCl (PROzac) 20 mg DAILY PO 02/15/19 09:00 02/17/19 14:43 DC 02/17/19 09:22 Fluoxetine HCl (PROzac) 20 mg DAILY@1200 PO 02/18/19 12:00 03/12/19 12:38 Fluoxetine HCl (PROzac) 20 mg QHS PEG 02/15/19 21:00 02/15/19 21:00 DC Glimepiride (Amaryl) 4 mg DAILY@0730 PEG 02/15/19 07:30 03/12/19 08:27 Glucagon (Glucagon) 1 mg ASDIRECTED PRN SC SEE LABEL COMMENTS 02/14/19 13:00 02/15/19 10:27 DC Glucagon (Glucagon) 1 mg ASDIRECTED PRN SC SEE LABEL COMMENTS 02/15/19 10:15 02/15/19 10:27 DC Glucagon (Glucagon) 1 mg ASDIRECTED PRN SC SEE LABEL COMMENTS 03/05/19 18:45 Glucose (Glucose) 16 GM ASDIRECTED PRN PO SEE LABEL COMMENTS 02/14/19 13:00 02/15/19 10:27 DC Glucose (Glucose) 16 GM ASDIRECTED PRN PO SEE LABEL COMMENTS 02/15/19 10:15 02/15/19 10:27 DC Glucose (Glucose) 16 GM ASDIRECTED PRN PO SEE LABEL COMMENTS 03/05/19 18:45 Guaifenesin (Robitussin) 5 ml TID PEG 02/14/19 16:00 03/07/19 10:14 DC 03/07/19 08:54 Heparin Sodium (Porcine) (Heparin) 5,000 units Q12H SC 02/14/19 21:00 03/12/19 08:25 Home Med (Med Rec Complete!) ASDIRECTED XX 02/14/19 14:15 02/14/19 14:56 DC [facility] 02/16/[facility] 21:00 02/18/19 14:40 DC 02/17/19 21:37 [facility] 03/01/19 21:00 03/05/19 18:36 DC 03/04/19 21:19 [facility] ([facility] 02[facility]18/19 21:00 03/01/19 12:22 DC 02/28/19 20:53 Insulin Human Lispro (HumaLOG INSULIN) SEE PROTOCOL TABLE AC PA 02/14/19 17:30 02/15/19 10:14 DC 02/14/19 19:48 Insulin Human Lispro (HumaLOG INSULIN) SEE PROTOCOL TABLE AC PA 03/05/19 07:30 03/12/19 12:39 Insulin Human Lispro (HumaLOG INSULIN) SEE PROTOCOL TABLE ACHS PA 03/01/19 17:30 03/04/19 21:00 DC 03/04/19 17:09 Insulin Human Lispro (HumaLOG INSULIN) SEE PROTOCOL TABLE ASDIRECTED PA 02/15/19 12:00 02/15/19 12:00 DC Insulin Human Lispro (HumaLOG INSULIN) SEE PROTOCOL TABLE Q6H PA 02/15/19 12:00 03/01/19 12:22 DC 03/01/19 06:51 Insulin Human Lispro (HumaLOG INSULIN) SEE PROTOCOL TABLE QHS PA 02/14/19 21:00 02/15/19 10:14 DC Insulin Human Lispro (HumaLOG INSULIN) SEE PROTOCOL TABLE QHS PA 03/04/19 21:00 Lansoprazole (First-Lansoprazole Oral Suspension) 30 mg DAILY PEG 02/14/19 09:00 03/07/19 10:14 DC 03/07/19 08:59 Lidocaine/ Diphenhydr/Alum/ Mg/Simeth (Magic Mouthwash) 5ml ASDIRECTED SSP 02/14/19 13:00 02/19/19 13:56 DC Lidocaine/ Diphenhydr/Alum/ Mg/Simeth (Magic Mouthwash) 5ml QID SSP 02/19/19 14:00 03/12/19 12:39 Meclizine HCl (Antivert) 25 mg Q8HP PRN PEG DIZZINESS 02/14/19 13:00 03/07/19 10:14 DC 02/16/19 08:23 Metformin HCl (Glucophage Xr) 500 mg DAILY@18 PO 02/19/19 18:00 02/20/19 18:10 DC 02/19/19 17:48 Metformin HCl (Glucophage) 500 mg DAILY@18 PO 02/20/19 18:00 03/11/19 17:13 Metoprolol Succinate (TopROL XL) 12.5 mg DAILY PO 03/01/19 09:00 03/12/19 08:27 Metoprolol Tartrate (Lopressor) 25 mg BID PEG 02/14/19 21:00 02/28/19 10:30 DC 02/27/19 21:43 Miscellaneous (Unresolved Clarification Entry) SEE LABEL COMMENTS DAILY XX 02/26/19 09:00 02/27/19 07:51 DC Miscellaneous (Unresolved Clarification Entry) SEE LABEL COMMENTS DAILY XX 02/27/19 09:00 02/27/19 09:00 DC Miscellaneous (Unresolved Clarification Entry) SEE LABEL COMMENTS DAILY XX 03/05/19 09:00 03/05/19 14:50 DC Miscellaneous (Unresolved Patient Own Med Order) SEE LABEL COMMENTS DAILY XX 02/25/19 09:00 02/28/19 14:29 DC Omeprazole (PriLOSEC) 20 mg DAILY XX 02/15/19 09:00 02/15/19 09:00 DC Oxymetazoline HCl (Afrin) 2 spray ASDIRECTED PRN NA SEE LABEL COMMENTS 02/27/19 10:00 02/27/19 11:20 DC Pantoprazole Sodium (Protonix) 40 mg DAILY PO 03/07/19 09:00 03/07/19 12:18 DC Pantoprazole Sodium (Protonix) 40 mg DAILY PO 03/08/19 09:00 03/12/19 08:26 Patient Own Medication (Patient'S Own Med) 1 TABLET = 25MG TABLET DAILY PEG 03/01/19 09:00 Future hold 03/12/19 08:27 Ramipril (Altace) 2.5 mg DAILY PEG 02/15/19 09:00 03/12/19 08:26 Ramipril (Altace) 2.5 mg DAILY PEG 02/15/19 09:00 Cancel Saliva Substitute (Mouthkote) 1 sprays QID MT 02/18/19 17:00 03/12/19 12:39 Sitagliptin Phosphate (Januvia) 100 mg DAILY PEG 02/15/19 09:00 03/12/19 08:26 Trazodone HCl (Desyrel) 25 mg QHS PEG 02/17/19 21:00 UNV Trazodone HCl (Desyrel) 25 mg QHS PO 02/17/19 21:00 03/11/19 21:17 NAJMA DURBIN MD Mar 12, 2019 14:31
[2019-03-12] MEDS: metFORMIN (GLUCOPHAGE) 500 MG TAB PO SCH (17:25)
[2019-03-12 21:09] VITALS: BP 104/58
[2019-03-12] MEDS: traZODone 25MG PER 1/2 TABLET PO SCH (21:28)
[2019-03-12] MEDS: ATORVASTATIN 20 MG TAB PEG SCH (21:28)
[2019-03-13] MEDS: IPRATROPIUM 0.5MG/ALBUTEROL 2.5MG INH SOL UD 3ML (DUONEB)(J7620) NEB SCH ×4 (02:00→18:50)
[2019-03-13 06:17] VITALS: BP 146/85
[2019-03-13] MEDS: SALIVA SUBSTITUTE(MOUTHKOTE) BTL MT SCH ×4 (09:00→20:35)
[2019-03-13] MEDS: MAGIC MOUTHWASH SUSPENSION BTL SSP SCH ×4 (09:00→20:26)
[2019-03-13] MEDS: JARDIANCE 25 MG PEG SCH (09:21)
[2019-03-13] MEDS: CLOPIDOGREL 75 MG TAB PEG SCH (09:21)
[2019-03-13] MEDS: GLIMEPIRIDE 2 MG TAB PEG SCH (09:21)
[2019-03-13] MEDS: DOCUSATE SODIUM 100 MG CAP PO SCH ×2 (09:21→20:25)
[2019-03-13] MEDS: HEPARIN SOD (PORCINE) 5000 UNITS/ML VIAL SC SCH ×2 (09:21→20:25)
[2019-03-13] MEDS: SITagliptin 50 MG TAB (JANUVIA) PEG SCH (09:21)
[2019-03-13] MEDS: ramipriL 1.25 MG CAP PEG SCH (09:22)
[2019-03-13] MEDS: PANTOPRAZOLE 40MG TAB (PROTONIX) PO SCH (09:22)
[2019-03-13] MEDS: METOPROLOL SUCC *XL* 12.5MG PER 1/2 TAB (TopROL *XL*) PO SCH (09:22)
[2019-03-13] MEDS: ASPIRIN 81 MG CHEW TABLET PEG SCH (09:22)
[2019-03-13] MEDS: HumaLOG INSULIN (NovoLOG) PER UNIT SC SCH (09:23)
[2019-03-13] MEDS: FLUoxetine 20 MG CAP PO SCH (12:32)
[2019-03-13 14:00] VITALS: BP 117/68
--- NOTE | 2019-03-13 14:09 | IPNPDOC ---
Text Note Date of Service The patient was seen on 03/12/19. NOTE SUBJECTIVE: He appears very optimistic. His diet has been advancing well, he is progressing well with PT. Do not offer any other complaints. he is very motivated to work with PT. OBJECTIVE: VITALS:pls see below Generally, the patient is awake, alert, oriented times three.slight slurring of speech. at times with persistent but improved expressive aphasia. HEENT: Face is symmetric. Tongue is midline. Moist mucous membranes. No jaundice. Anicteric. Neck: No jugular venous distention (JVD). No thyromegaly Heart: S1, S2, irregularly irregular. No rub murmur or gallop Lungs: Clear to auscultation. No wheezing, rales, or rhonchi. Abdomen: Positive bowel sounds. Soft. Nontender. non distended. PEG. trial of po Neurologic: Awake, alert, oriented times three. Left upper and lower extremity with persistent 3/5 weakness. Extremities: mild edema on the left, no cyanosis or clubbing Skin; warm and dry ASSESSMENT AND PLAN: This is a 68-year-old male with past medical history significant for hypertension, hyperlipidemia, diabetes, obesity, metabolic syndrome admitted to [facility] on 02/06/2019 with complaints of left-sided hemiplegia and slurred speech. CT of the head was negative for intracranial hemorrhage. MRI showed wide pontine cerebrovascular accident (CVA). CT angiography of the neck and head showed no large vessel occlusion. The patient was started on aspirin and Plavix. Echocardiogram showed no regional wall motion abnormality, no interatrial shunt by color Doppler and bubble study. Due to severe dysphasia, the patient underwent feeding tube placement with a percutaneous endoscopic gastrostomy (PEG) tube on 02/12/2019 and was transferred to [facility] on 02/14/2019 for acute rehabilitation. 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 Pt has been cooperative and has been working with Physical therapy (PT) and occupational therapy (OT) , with discharge plans for 03/17/19 . He is continued on ASA, plavix, and lipitor. Dysphagia secondary to right pontine cerebrovascular accident. Modified barium swallow on 02/27/2019 with recommendations for po food trials. doing well with his oral diet Hypertension. Stable. Diabetes. Better controlled. on home diabetic meds sliding scale with coverage and qac hs fingersticks. Deep venous thrombosis (DVT) prophylaxis with thromboembolic deterrents (TEDs) and heparin subcutaneous. Dopplers on lower extremities has been negative. disposition: dc plans for 03/17/19. VS,Sarah, I+O VS, Sarah, I+O Laboratory Tests 03/12/19 06:30 Red Blood Count 5.35, Mean Corpuscular Volume 85.6, Mean Corpuscular Hemoglobin 28.4, Mean Corpuscular Hemoglobin Concent 33.2, Red Cell Distribution Width 13.2, Neutrophils (%) (Auto) 56.1, Lymphocytes (%) (Auto) 27.4, Monocytes (%) (Auto) 12.3 H, Eosinophils (%) (Auto) 3.2 H, Basophils (%) (Auto) 0.5, Neutrophils # (Auto) 2.3, Lymphocytes # (Auto) 1.1 L, Monocytes # (Auto) 0.5, Eosinophils # (Auto) 0.1, Basophils # (Auto) 0.0, Calcium Level 9.0 Vital Signs Date Time Temp Pulse Resp B/P (MAP) Pulse Ox O2 Delivery O2 Flow Rate FiO2 03/12/19 14:00 97.7 65 18 128/77 (94) 96 I&O- Last 24 Hours up to 6 AM 03/12/19 06:00 Intake Total 1770 ml Balance 1770 ml BECKY LOZANO MD Mar 12, 2019 15:55
[2019-03-13] MEDS: metFORMIN (GLUCOPHAGE) 500 MG TAB PO SCH (17:13)
[2019-03-13 20:00] VITALS: BP 123/70
[2019-03-13] MEDS: traZODone 25MG PER 1/2 TABLET PO SCH (20:26)
[2019-03-13] MEDS: ATORVASTATIN 20 MG TAB PEG SCH (20:26)
[2019-03-14] MEDS: IPRATROPIUM 0.5MG/ALBUTEROL 2.5MG INH SOL UD 3ML (DUONEB)(J7620) NEB SCH ×4 (02:00→19:52)
[2019-03-14 05:25] VITALS: BP 129/73
[2019-03-14] MEDS: GLIMEPIRIDE 2 MG TAB PEG SCH (07:44)
[2019-03-14] MEDS: CLOPIDOGREL 75 MG TAB PEG SCH (07:44)
[2019-03-14] MEDS: PANTOPRAZOLE 40MG TAB (PROTONIX) PO SCH (07:44)
[2019-03-14] MEDS: ASPIRIN 81 MG CHEW TABLET PEG SCH (07:45)
[2019-03-14] MEDS: ramipriL 1.25 MG CAP PEG SCH (07:45)
[2019-03-14] MEDS: METOPROLOL SUCC *XL* 12.5MG PER 1/2 TAB (TopROL *XL*) PO SCH (07:45)
[2019-03-14] MEDS: DOCUSATE SODIUM 100 MG CAP PO SCH ×2 (07:46→21:18)
[2019-03-14] MEDS: JARDIANCE 25 MG PEG SCH (07:46)
[2019-03-14] MEDS: SITagliptin 50 MG TAB (JANUVIA) PEG SCH (07:46)
[2019-03-14] MEDS: HEPARIN SOD (PORCINE) 5000 UNITS/ML VIAL SC SCH ×2 (07:46→21:18)
[2019-03-14] MEDS: MAGIC MOUTHWASH SUSPENSION BTL SSP SCH ×4 (07:47→21:19)
[2019-03-14] MEDS: SALIVA SUBSTITUTE(MOUTHKOTE) BTL MT SCH ×4 (07:47→21:19)
[2019-03-14] MEDS ORDERED: METO1TAB32 PO (10:00)
[2019-03-14] MEDS ORDERED: TRAZ-252 PO (10:00)
[2019-03-14] MEDS ORDERED: ATOR1TAB21 PEG (10:00)
[2019-03-14] MEDS ORDERED: ASPI81CH8 PEG (10:00)
[2019-03-14] MEDS ORDERED: ALTA1CAP PEG (10:00)
[2019-03-14] MEDS ORDERED: SITA50TAB PEG (10:00)
[2019-03-14] MEDS ORDERED: AMAR1TAB5 PEG (10:00)
[2019-03-14] MEDS ORDERED: GLUC500T PO (10:00)
[2019-03-14] MEDS ORDERED: CLOP75TA2 PEG ×2 (10:00→10:20)
[2019-03-14] MEDS ORDERED: FLUO20CA19 PO (10:00)
[2019-03-14] MEDS ORDERED: PANT40TA3 PO (10:00)
[2019-03-14] MEDS ORDERED: VARIBAR PUDDING 40% w/v 230ML TUBE As Ordered ONE (10:21)
[2019-03-14] MEDS ORDERED: E-Z-PAQUE 96% w/w SUSP 176GM BTL As Ordered ONE (10:21)
[2019-03-14] MEDS ORDERED: VARIBAR NECTAR 40% w/v 240ML SUSP BTL As Ordered ONE (10:21)
[2019-03-14] MEDS ORDERED: BARIUM SULFATE 700 MG TABLET (E-Z-DISK) As Ordered ONE (10:22)
[2019-03-14] MEDS: FLUoxetine 20 MG CAP PO SCH (12:07)
[2019-03-14 14:00] VITALS: BP 118/75
--- NOTE | 2019-03-14 14:42 | IPNPDOC ---
PM&R Progress Note DATE OF SERVICE: Mar 13, 2019 Accounting/Finance Tutor Progress Note Subjective: Patient seen walking with more ease, sling provided with better arm swing. He is feeling ready to go home soon. REVIEW OF SYSTEMS: The following is a completed review of systems and has been reviewed. Review of systems otherwise unremarkable. PAIN: Patient self reports no pain EYES: No recent vision changes EARS, NOSE, & THROAT: No throat pain +dysphagia CARDIOVASCULAR: Denies chest pain or palpitations PULMONARY: Denies shortness of breath, no cough GASTROINTESTINAL: Denies constipation/diarrhea GENITOURINARY: no dysuria or incontinence MUSCULOSKELETAL: left hip replacement NEUROLOGICAL:left sides paresis HEMATOLOGICAL: negative SKIN:peg PSYCHIATRIC: Unremarkable All other review of systems found to be negative. PHYSICAL EXAMINATION: VITAL SIGNS: Please see below. GENERAL: Pleasant and cooperative. No acute distress. HEENT: PERRL. Extraocular movements intact. Clear conjunctiva. left facial droop with tongue deviation to the left CARDIOVASCULAR: Regular rate and rhythm. No murmurs, rubs, or gallops LUNGS: scattered rhonchi ABDOMEN: Soft, nontender, nondistended. Positive bowel sounds. Normal active bowel sounds. +PEG NEUROLOGICAL: Alert and oriented times three. Cranial nerves II, III, IV, V, , VIII grossly intact with deficits in VII, IX-XII on left. Sensation grossly intact in all 4 extremities +clonus 6 beats left foot, +babinski, brisk patellar reflex EXTREMITIES: 5\5 strength right upper extremities. 5\5 strength right lower extremity. 2+/5 biceps, 2/5 triceps 2/5 wrist extensor, 2/5 test engineering intern, 2/5 hip flexion, knee extension, adduction, 1/5 ankle DF and EHL, 0/5 plantar flexion ASSESSMENT:68-year-old M with past medical history of HTN, DM, HLD who presents status post right pontine stroke PLAN: 1. Rehab: PT- improve gait, strengthen LLE, stretch heel cords, improve balance and endurance, multipodus when in bed, c/u NMES, patient ambulating with quad cane contact guard assist, trained -will need AFO, will place consult for teller vault OT- teach ADl management with use of right arm, strengthen/stretch/preserve ROM LUE, splinting, and E-stim AOC DIRECTOR INTELLIGENCE OFFICER- NPO, c/u oral rinse, advance diet prn- MBS 02/27/19, patient upgraded to honey thickened liquid level 2, repeat MBS tomorrow 2. Neuro: s.p right pontine stroke with dysphagia and dense hemiplegia- c/u secondary stroke prevention ASA, plavix, statin, BP control -c/u Prozac for motor recovery and mood 3. Cardio- pmh HTN c/u BP meds, HTN c/u statin, medicine consulted to assist in management 4. Resp: encourage incentive spirometry, DuoNeb, Guaifenesin, flonase -CXR with no acute infiltrate, no leukocytosis -oral mouth rinse ordered 5. : monitor PVRs, Ucx negative 6. GI: PPI for ppx, bowel meds for optimal bowl care 7. Endo: pmh DM c/u Januvia and glimepiride with ISS coverage adjust prn, c/u Levemir coverage, metformin 500mg added, medicine recs appreciated 8. Nutrition- eating well, tube feeds held 9. DVT ppx: heparin and albin, dopplers negative for DVT bilat 10. Dispo: 03/15/19 to home, progressing towards goals Allergies Coded Allergies: No Known Allergies (Verified Allergy, Unknown, 02/14/19) Vital Signs Vital Signs Date Time Temp Pulse Resp B/P (MAP) Pulse Ox O2 Delivery O2 Flow Rate FiO2 03/14/19 07:45 74 129/73 03/14/19 05:25 97.9 18 94 Laboratory Data Labs 24H Laboratory Tests 2 03/13/19 16:44: Bedside Glucose (Misc Panel) 128H 03/14/19 05:48: Bedside Glucose (Misc Panel) 94 Current Medications Current Medications Current Medications Medications (Trade) Dose Ordered Sig/Hallie Route PRN Reason Start Time Stop Time Status Last Admin Dose Admin Albuterol Sulfate (Proventil Neb) 2.5 mg Q4HP PRN NEB SOB/WHEEZING 02/14/19 13:00 03/03/19 11:55 Albuterol/ Ipratropium (Duoneb (Ipr 0.5mg/Alb 2.5mg)) 3 ml RQ6H NEB 02/14/19 20:00 03/14/19 13:21 Aspirin (Aspirin Chewable) 81 mg DAILY PEG 02/15/19 09:00 03/14/19 07:45 Atorvastatin Calcium (Lipitor) 40 mg QHS PEG 02/14/19 21:00 03/13/19 20:26 Clopidogrel Bisulfate (PLAVix) 75 mg DAILY PEG 02/15/19 09:00 05/15/19 09:01 03/14/19 07:44 Dextrose (Dextrose 50%) 25 ml ASDIRECTED PRN IV SEE LABEL COMMENTS 02/14/19 13:00 02/15/19 10:27 DC Dextrose (Dextrose 50%) 25 ml ASDIRECTED PRN IV SEE LABEL COMMENTS 02/15/19 10:15 02/15/19 10:27 DC Dextrose (Dextrose 50%) 25 ml ASDIRECTED PRN IV SEE LABEL COMMENTS 03/05/19 18:45 Docusate Sodium (Colace Liquid) 100 mg BID PO 02/14/19 21:00 03/08/19 13:56 DC 03/08/19 08:15 Docusate Sodium (Colace) 100 mg BID PO 03/08/19 21:00 03/14/19 07:46 Fluoxetine HCl (PROzac) 20 mg DAILY PO 02/15/19 09:00 02/17/19 14:43 DC 02/17/19 09:22 Fluoxetine HCl (PROzac) 20 mg DAILY@1200 PO 02/18/19 12:00 03/14/19 12:07 Fluoxetine HCl (PROzac) 20 mg QHS PEG 02/15/19 21:00 02/15/19 21:00 DC Glimepiride (Amaryl) 4 mg DAILY@0730 PEG 02/15/19 07:30 03/14/19 07:44 Glucagon (Glucagon) 1 mg ASDIRECTED PRN SC SEE LABEL COMMENTS 02/14/19 13:00 02/15/19 10:27 DC Glucagon (Glucagon) 1 mg ASDIRECTED PRN SC SEE LABEL COMMENTS 02/15/19 10:15 02/15/19 10:27 DC Glucagon (Glucagon) 1 mg ASDIRECTED PRN SC SEE LABEL COMMENTS 03/05/19 18:45 Glucose (Glucose) 16 GM ASDIRECTED PRN PO SEE LABEL COMMENTS 02/14/19 13:00 02/15/19 10:27 DC Glucose (Glucose) 16 GM ASDIRECTED PRN PO SEE LABEL COMMENTS 02/15/19 10:15 02/15/19 10:27 DC Glucose (Glucose) 16 GM ASDIRECTED PRN PO SEE LABEL COMMENTS 03/05/19 18:45 Guaifenesin (Robitussin) 5 ml TID PEG 02/14/19 16:00 03/07/19 10:14 DC 03/07/19 08:54 Heparin Sodium (Porcine) (Heparin) 5,000 units Q12H CO 02/14/19 21:00 03/14/19 07:46 Home Med (Med Rec Complete!) ASDIRECTED XX 02/14/19 14:15 02/14/19 14:56 DC Insulin Detemir (Levemir Insulin) 10 units QHS CO 02/16/19 21:00 02/18/19 14:40 DC 02/17/19 21:37 Insulin Detemir (Levemir Insulin) 10 units QHS CO 03/01/19 21:00 03/05/19 18:36 DC 03/04/19 21:19 Insulin Detemir (Levemir Insulin) 15 units QHS CO 02/18/19 21:00 03/01/19 12:22 DC 02/28/19 20:53 Insulin Human Lispro (HumaLOG INSULIN) SEE PROTOCOL TABLE AC CO 02/14/19 17:30 02/15/19 10:14 DC 02/14/19 19:48 Insulin Human Lispro (HumaLOG INSULIN) SEE PROTOCOL TABLE AC CO 03/05/19 07:30 03/13/19 10:12 DC 03/13/19 09:23 Insulin Human Lispro (HumaLOG INSULIN) SEE PROTOCOL TABLE ACHS CO 03/01/19 17:30 03/04/19 21:00 DC 03/04/19 17:09 Insulin Human Lispro (HumaLOG INSULIN) SEE PROTOCOL TABLE ASDIRECTED CO 02/15/19 12:00 02/15/19 12:00 DC Insulin Human Lispro (HumaLOG INSULIN) SEE PROTOCOL TABLE Q6H CO 02/15/19 12:00 03/01/19 12:22 DC 03/01/19 06:51 Insulin Human Lispro (HumaLOG INSULIN) SEE PROTOCOL TABLE QHS CO 02/14/19 21:00 02/15/19 10:14 DC Insulin Human Lispro (HumaLOG INSULIN) SEE PROTOCOL TABLE QHS CO 03/04/19 21:00 03/13/19 10:12 DC Lansoprazole (First-Lansoprazole Oral Suspension) 30 mg DAILY PEG 02/14/19 09:00 03/07/19 10:14 DC 03/07/19 08:59 Lidocaine/ Diphenhydr/Alum/ Mg/Simeth (Magic Mouthwash) 5ml ASDIRECTED SSP 02/14/19 13:00 02/19/19 13:56 DC Lidocaine/ Diphenhydr/Alum/ Mg/Simeth (Magic Mouthwash) 5ml QID SSP 02/19/19 14:00 03/14/19 12:08 Meclizine HCl (Antivert) 25 mg Q8HP PRN PEG DIZZINESS 02/14/19 13:00 03/07/19 10:14 DC 02/16/19 08:23 Metformin HCl (Glucophage Xr) 500 mg DAILY@18 PO 02/19/19 18:00 02/20/19 18:10 DC 02/19/19 17:48 Metformin HCl (Glucophage) 500 mg DAILY@18 PO 02/20/19 18:00 03/13/19 17:13 Metoprolol Succinate (TopROL XL) 12.5 mg DAILY PO 03/01/19 09:00 03/14/19 07:45 Metoprolol Tartrate (Lopressor) 25 mg BID PEG 02/14/19 21:00 02/28/19 10:30 DC 02/27/19 21:43 Miscellaneous (Unresolved Clarification Entry) SEE LABEL COMMENTS DAILY XX 02/26/19 09:00 02/27/19 07:51 DC Miscellaneous (Unresolved Clarification Entry) SEE LABEL COMMENTS DAILY XX 02/27/19 09:00 02/27/19 09:00 DC Miscellaneous (Unresolved Clarification Entry) SEE LABEL COMMENTS DAILY XX 03/05/19 09:00 03/05/19 14:50 DC Miscellaneous (Unresolved Patient Own Med Order) SEE LABEL COMMENTS DAILY XX 02/25/19 09:00 02/28/19 14:29 DC Omeprazole (PriLOSEC) 20 mg DAILY XX 02/15/19 09:00 02/15/19 09:00 DC Oxymetazoline HCl (Afrin) 2 spray ASDIRECTED PRN NA SEE LABEL COMMENTS 02/27/19 10:00 02/27/19 11:20 DC Pantoprazole Sodium (Protonix) 40 mg DAILY PO 03/07/19 09:00 03/07/19 12:18 DC Pantoprazole Sodium (Protonix) 40 mg DAILY PO 03/08/19 09:00 03/14/19 07:44 Patient Own Medication (Patient'S Own Med) 1 TABLET = 25MG TABLET DAILY PEG 03/01/19 09:00 Future hold 03/14/19 07:46 Ramipril (Altace) 2.5 mg DAILY PEG 02/15/19 09:00 03/14/19 07:45 Ramipril (Altace) 2.5 mg DAILY PEG 02/15/19 09:00 Cancel Saliva Substitute (Mouthkote) 1 sprays QID MT 02/18/19 17:00 03/14/19 12:08 Sitagliptin Phosphate (Januvia) 100 mg DAILY PEG 02/15/19 09:00 03/14/19 07:46 Trazodone HCl (Desyrel) 25 mg QHS PEG 02/17/19 21:00 UNV Trazodone HCl (Desyrel) 25 mg QHS PO 02/17/19 21:00 03/13/19 20:26 NAJMA DURBIN MD Mar 14, 2019 14:42
--- NOTE | 2019-03-14 14:43 | IPNPDOC ---
PM&R Progress Note DATE OF SERVICE: Mar 14, 2019 Typesetting Supervisor Progress Note Subjective: Patient seen in his room and was told the finance business manager would come today. His medications were discussed and he expressed understanding. He reports he will come back to visit. REVIEW OF SYSTEMS: The following is a completed review of systems and has been reviewed. Review of systems otherwise unremarkable. PAIN: Patient self reports no pain EYES: No recent vision changes EARS, NOSE, & THROAT: No throat pain +dysphagia CARDIOVASCULAR: Denies chest pain or palpitations PULMONARY: Denies shortness of breath, no cough GASTROINTESTINAL: Denies constipation/diarrhea GENITOURINARY: no dysuria or incontinence MUSCULOSKELETAL: left hip replacement NEUROLOGICAL:left sides paresis HEMATOLOGICAL: negative SKIN:peg PSYCHIATRIC: Unremarkable All other review of systems found to be negative. PHYSICAL EXAMINATION: VITAL SIGNS: Please see below. GENERAL: Pleasant and cooperative. No acute distress. HEENT: PERRL. Extraocular movements intact. Clear conjunctiva. left facial droop with tongue deviation to the left CARDIOVASCULAR: Regular rate and rhythm. No murmurs, rubs, or gallops LUNGS: scattered rhonchi ABDOMEN: Soft, nontender, nondistended. Positive bowel sounds. Normal active bowel sounds. +PEG NEUROLOGICAL: Alert and oriented times three. Cranial nerves II, III, IV, V, , VIII grossly intact with deficits in VII, IX-XII on left. Sensation grossly intact in all 4 extremities +clonus 6 beats left foot, +babinski, brisk patellar reflex EXTREMITIES: 5\5 strength right upper extremities. 5\5 strength right lower extremity. 2+/5 biceps, 2/5 triceps 2/5 wrist extensor, 2/5 avionics safety inspector, 2/5 hip flexion, knee extension, adduction, 1/5 ankle DF and EHL, 0/5 plantar flexion ASSESSMENT:68-year-old M with past medical history of HTN, DM, HLD who presents status post right pontine stroke PLAN: 1. Rehab: PT- improve gait, strengthen LLE, stretch heel cords, improve balance and endurance, multipodus when in bed, c/u NMES, patient ambulating with quad cane contact guard assist, trained -will need AFO, will place consult for finance business manager OT- teach ADl management with use of right arm, strengthen/stretch/preserve ROM LUE, splinting, and E-stim ELECTRONIC DEVICE REPAIRER- NPO, c/u oral rinse, advance diet prn- MBS 02/27/19, patient upgraded to honey thickened liquid level 2, repeat MBS 03/14/19- upgraded to level two and nectar 2. Neuro: s.p right pontine stroke with dysphagia and dense hemiplegia- c/u secondary stroke prevention ASA, plavix, statin, BP control -c/u Prozac for motor recovery and mood 3. Cardio- pmh HTN c/u BP meds, HTN c/u statin, medicine consulted to assist in management 4. Resp: encourage incentive spirometry, DuoNeb, Guaifenesin, flonase -CXR with no acute infiltrate, no leukocytosis -oral mouth rinse ordered 5. : monitor PVRs, Ucx negative 6. GI: PPI for ppx, bowel meds for optimal bowl care 7. Endo: pmh DM c/u Januvia and glimepiride, stopped ISS coverage with good glycemic control, c/u on metformin 8. Nutrition- eating well, tube feeds held 9. DVT ppx: heparin and albin, dopplers negative for DVT bilat 10. Dispo: 03/15/19 to home, progressing towards goals Allergies Coded Allergies: No Known Allergies (Verified Allergy, Unknown, 02/14/19) Vital Signs Vital Signs Date Time Temp Pulse Resp B/P (MAP) Pulse Ox O2 Delivery O2 Flow Rate FiO2 03/14/19 07:45 74 129/73 03/14/19 05:25 97.9 18 94 Laboratory Data Labs 24H Laboratory Tests 2 03/13/19 16:44: Bedside Glucose (Misc Panel) 128H 03/14/19 05:48: Bedside Glucose (Misc Panel) 94 Current Medications Current Medications Current Medications Medications (Trade) Dose Ordered Sig/Hallie Route PRN Reason Start Time Stop Time Status Last Admin Dose Admin Albuterol Sulfate (Proventil Neb) 2.5 mg Q4HP PRN NEB SOB/WHEEZING 02/14/19 13:00 03/03/19 11:55 Albuterol/ Ipratropium (Duoneb (Ipr 0.5mg/Alb 2.5mg)) 3 ml RQ6H NEB 02/14/19 20:00 03/14/19 13:21 Aspirin (Aspirin Chewable) 81 mg DAILY PEG 02/15/19 09:00 03/14/19 07:45 Atorvastatin Calcium (Lipitor) 40 mg QHS PEG 02/14/19 21:00 03/13/19 20:26 Clopidogrel Bisulfate (PLAVix) 75 mg DAILY PEG 02/15/19 09:00 05/15/19 09:01 03/14/19 07:44 Dextrose (Dextrose 50%) 25 ml ASDIRECTED PRN IV SEE LABEL COMMENTS 02/14/19 13:00 02/15/19 10:27 DC Dextrose (Dextrose 50%) 25 ml ASDIRECTED PRN IV SEE LABEL COMMENTS 02/15/19 10:15 02/15/19 10:27 DC Dextrose (Dextrose 50%) 25 ml ASDIRECTED PRN IV SEE LABEL COMMENTS 03/05/19 18:45 Docusate Sodium (Colace Liquid) 100 mg BID PO 02/14/19 21:00 03/08/19 13:56 DC 03/08/19 08:15 Docusate Sodium (Colace) 100 mg BID PO 03/08/19 21:00 03/14/19 07:46 Fluoxetine HCl (PROzac) 20 mg DAILY PO 02/15/19 09:00 02/17/19 14:43 DC 02/17/19 09:22 Fluoxetine HCl (PROzac) 20 mg DAILY@1200 PO 02/18/19 12:00 03/14/19 12:07 Fluoxetine HCl (PROzac) 20 mg QHS PEG 02/15/19 21:00 02/15/19 21:00 DC Glimepiride (Amaryl) 4 mg DAILY@0730 PEG 02/15/19 07:30 03/14/19 07:44 Glucagon (Glucagon) 1 mg ASDIRECTED PRN SC SEE LABEL COMMENTS 02/14/19 13:00 02/15/19 10:27 DC Glucagon (Glucagon) 1 mg ASDIRECTED PRN SC SEE LABEL COMMENTS 02/15/19 10:15 02/15/19 10:27 DC Glucagon (Glucagon) 1 mg ASDIRECTED PRN SC SEE LABEL COMMENTS 03/05/19 18:45 Glucose (Glucose) 16 GM ASDIRECTED PRN PO SEE LABEL COMMENTS 02/14/19 13:00 02/15/19 10:27 DC Glucose (Glucose) 16 GM ASDIRECTED PRN PO SEE LABEL COMMENTS 02/15/19 10:15 02/15/19 10:27 DC Glucose (Glucose) 16 GM ASDIRECTED PRN PO SEE LABEL COMMENTS 03/05/19 18:45 Guaifenesin (Robitussin) 5 ml TID PEG 02/14/19 16:00 03/07/19 10:14 DC 03/07/19 08:54 Heparin Sodium (Porcine) (Heparin) 5,000 units Q12H MT 02/14/19 21:00 03/14/19 07:46 Home Med (Med Rec Complete!) ASDIRECTED XX 02/14/19 14:15 02/14/19 14:56 DC Insulin Detemir (Levemir Insulin) 10 units QHS MT 02/16/19 21:00 02/18/19 14:40 DC 02/17/19 21:37 Insulin Detemir (Levemir Insulin) 10 units QHS MT 03/01/19 21:00 03/05/19 18:36 DC 03/04/19 21:19 Insulin Detemir (Levemir Insulin) 15 units QHS MT 02/18/19 21:00 03/01/19 12:22 DC 02/28/19 20:53 Insulin Human Lispro (HumaLOG INSULIN) SEE PROTOCOL TABLE AC MT 02/14/19 17:30 02/15/19 10:14 DC 02/14/19 19:48 Insulin Human Lispro (HumaLOG INSULIN) SEE PROTOCOL TABLE AC MT 03/05/19 07:30 03/13/19 10:12 DC 03/13/19 09:23 Insulin Human Lispro (HumaLOG INSULIN) SEE PROTOCOL TABLE ACHS MT 03/01/19 17:30 03/04/19 21:00 DC 03/04/19 17:09 Insulin Human Lispro (HumaLOG INSULIN) SEE PROTOCOL TABLE ASDIRECTED MT 02/15/19 12:00 02/15/19 12:00 DC Insulin Human Lispro (HumaLOG INSULIN) SEE PROTOCOL TABLE Q6H MT 02/15/19 12:00 03/01/19 12:22 DC 03/01/19 06:51 Insulin Human Lispro (HumaLOG INSULIN) SEE PROTOCOL TABLE QHS MT 02/14/19 21:00 02/15/19 10:14 DC Insulin Human Lispro (HumaLOG INSULIN) SEE PROTOCOL TABLE QHS MT 03/04/19 21:00 03/13/19 10:12 DC Lansoprazole (First-Lansoprazole Oral Suspension) 30 mg DAILY PEG 02/14/19 09:00 03/07/19 10:14 DC 03/07/19 08:59 Lidocaine/ Diphenhydr/Alum/ Mg/Simeth (Magic Mouthwash) 5ml ASDIRECTED SSP 02/14/19 13:00 02/19/19 13:56 DC Lidocaine/ Diphenhydr/Alum/ Mg/Simeth (Magic Mouthwash) 5ml QID SSP 02/19/19 14:00 03/14/19 12:08 Meclizine HCl (Antivert) 25 mg Q8HP PRN PEG DIZZINESS 02/14/19 13:00 03/07/19 10:14 DC 02/16/19 08:23 Metformin HCl (Glucophage Xr) 500 mg DAILY@18 PO 02/19/19 18:00 02/20/19 18:10 DC 02/19/19 17:48 Metformin HCl (Glucophage) 500 mg DAILY@18 PO 02/20/19 18:00 03/13/19 17:13 Metoprolol Succinate (TopROL XL) 12.5 mg DAILY PO 03/01/19 09:00 03/14/19 07:45 Metoprolol Tartrate (Lopressor) 25 mg BID PEG 02/14/19 21:00 02/28/19 10:30 DC 02/27/19 21:43 Miscellaneous (Unresolved Clarification Entry) SEE LABEL COMMENTS DAILY XX 02/26/19 09:00 02/27/19 07:51 DC Miscellaneous (Unresolved Clarification Entry) SEE LABEL COMMENTS DAILY XX 02/27/19 09:00 02/27/19 09:00 DC Miscellaneous (Unresolved Clarification Entry) SEE LABEL COMMENTS DAILY XX 03/05/19 09:00 03/05/19 14:50 DC Miscellaneous (Unresolved Patient Own Med Order) SEE LABEL COMMENTS DAILY XX 02/25/19 09:00 02/28/19 14:29 DC Omeprazole (PriLOSEC) 20 mg DAILY XX 02/15/19 09:00 02/15/19 09:00 DC Oxymetazoline HCl (Afrin) 2 spray ASDIRECTED PRN NA SEE LABEL COMMENTS 02/27/19 10:00 02/27/19 11:20 DC Pantoprazole Sodium (Protonix) 40 mg DAILY PO 03/07/19 09:00 03/07/19 12:18 DC Pantoprazole Sodium (Protonix) 40 mg DAILY PO 03/08/19 09:00 03/14/19 07:44 Patient Own Medication (Patient'S Own Med) 1 TABLET = 25MG TABLET DAILY PEG 03/01/19 09:00 Future hold 03/14/19 07:46 Ramipril (Altace) 2.5 mg DAILY PEG 02/15/19 09:00 03/14/19 07:45 Ramipril (Altace) 2.5 mg DAILY PEG 02/15/19 09:00 Cancel Saliva Substitute (Mouthkote) 1 sprays QID MT 02/18/19 17:00 03/14/19 12:08 Sitagliptin Phosphate (Januvia) 100 mg DAILY PEG 02/15/19 09:00 03/14/19 07:46 Trazodone HCl (Desyrel) 25 mg QHS PEG 02/17/19 21:00 UNV Trazodone HCl (Desyrel) 25 mg QHS PO 02/17/19 21:00 03/13/19 20:26 NAJMA DURBIN MD Mar 14, 2019 14:43
--- NOTE | 2019-03-14 15:21 | REP ---
COOKIE SWALLOW The procedure was performed under the direct supervision of Dr. Lopez. The procedure was performed with Tanya Real from speech pathology present. 5 ml aliquots of nectar, pudding, soft solid, and mixed fruit consistency barium was administered as well as a barium pill. With nectar consistency barium there is laryngeal penetration when the patient drank from the cup. When the patient drank the nectar consistency barium with a straw there was aspiration. The detailed report of this examination will be provided by speech pathology. 1.6 minutes of fluoroscopy time was utilized for this procedure. Reviewed by LYNN Perez 03/14/2019 03:03 P Electronically Signed by Forrest Lopez MD 03/14/2019 03:12 P
[2019-03-14] MEDS: metFORMIN (GLUCOPHAGE) 500 MG TAB PO SCH (17:34)
[2019-03-14 19:56] VITALS: BP 132/77
[2019-03-14] MEDS: traZODone 25MG PER 1/2 TABLET PO SCH (21:18)
[2019-03-14] MEDS: ATORVASTATIN 20 MG TAB PEG SCH (21:18)
[2019-03-15] MEDS: IPRATROPIUM 0.5MG/ALBUTEROL 2.5MG INH SOL UD 3ML (DUONEB)(J7620) NEB SCH ×2 (02:00→07:07)
[2019-03-15 05:49] VITALS: BP 141/81
[2019-03-15] MEDS: JARDIANCE 25 MG PEG SCH (09:42)
[2019-03-15] MEDS: HEPARIN SOD (PORCINE) 5000 UNITS/ML VIAL SC SCH (09:43)
[2019-03-15] MEDS: CLOPIDOGREL 75 MG TAB PEG SCH (09:43)
[2019-03-15] MEDS: METOPROLOL SUCC *XL* 12.5MG PER 1/2 TAB (TopROL *XL*) PO SCH (09:43)
[2019-03-15] MEDS: SITagliptin 50 MG TAB (JANUVIA) PEG SCH (09:43)
[2019-03-15] MEDS: DOCUSATE SODIUM 100 MG CAP PO SCH (09:43)
[2019-03-15] MEDS: ASPIRIN 81 MG CHEW TABLET PEG SCH (09:43)
[2019-03-15] MEDS: PANTOPRAZOLE 40MG TAB (PROTONIX) PO SCH (09:43)
[2019-03-15] MEDS: MAGIC MOUTHWASH SUSPENSION BTL SSP SCH ×2 (09:44→12:26)
[2019-03-15] MEDS: SALIVA SUBSTITUTE(MOUTHKOTE) BTL MT SCH ×2 (09:44→12:26)
[2019-03-15] MEDS: GLIMEPIRIDE 2 MG TAB PEG SCH (09:45)
[2019-03-15] MEDS: FLUoxetine 20 MG CAP PO SCH (12:19)
[2019-03-15 12:20] VITALS: BP 141/81
[2019-03-15] MEDS: ramipriL 1.25 MG CAP PEG SCH (12:20)
--- NOTE | 2019-03-26 09:23 | PMRDS ---
DATE OF ADMISSION: 02/14/2019 DATE OF DISCHARGE: 03/15/2019 CHIEF COMPLAINT/DISCHARGE DIAGNOSIS: Stroke. HISTORY OF PRESENT ILLNESS: 68-year-old male with a past medical history of hypertension, hyperlipidemia, diabetes, obesity who presented to [facility] on 02/06/2019 complaining of left-sided weakness and slurred speech. CT head was negative for intracranial hemorrhage. MRI showed "focal area for DWI hyperintensity in the right bao suggestive of acute to early subacute infarct". CT angio head and neck did not show large vessel occlusions. He was admitted to the stroke service, started on aspirin, Plavix to be continued for 90 days total and transitioned to just aspirin. Echo was also performed showing "overall LV systolic function is normal.... There are no regional wall motion abnormality.... There is no interatrial shunt visualized by color Doppler and bubble study." The patient was noted to have severe dysphagia and underwent percutaneous endoscopic gastrostomy (PEG) placement 02/12/2019 without complication. 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 PAST MEDICAL HISTORY: As per HPI. HOSPITAL COURSE: The patient was admitted and enrolled in a comprehensive physical therapy (PT), occupational therapy (OT), speech language pathology program. He received 24-hour nursing supervision and weekly team meetings were held to discuss his progress. The patient initially was made nothing by mouth and eventually upgraded to honey-thickened liquids and level two. Then later upgraded to a level II and nectar thickened liquids after multiple modified barium swallow studies. He was maintained on Prozac for motor recovery and aspirin and Plavix. The patient's respiratory status continued to be stable throughout hospital course and his diabetes was well controlled with metformin, Januvia and glimepiride. He made significant and continual gains in therapy and was deemed medically and functionally stable to return home with assistance from his . DISCHARGE MEDICATIONS: As per history of present illness (HPI). FUNCTIONAL HISTORY: Upon discharge the patient was modified assist for functional transfers, contact guard for fall recovery, able to ambulate with a wide-based quad cane, left ankle-foot orthosis (AFO), close standby supervision. In occupational therapy he was contact guard for shower/tube transfers, minimal assist for lower body dressing, standby assist for toileting, eating. Thank you for this referral.
== END 2019-03-15 13:25 | disposition home or self-care (01) | DRG 57 ==
LOC: M PM&R 12:53
PROVIDERS: ADMIT Physical Medicine & Rehabilitation; ATTEND Physical Medicine & Rehabilitation
DX: I69.354 Hemiplegia and hemiparesis following cerebral infarction affecting left non-dominant side (principal); I69.391 Dysphagia following cerebral infarction; Z93.1 Gastrostomy status; I10 Essential (primary) hypertension; E11.9 Type 2 diabetes mellitus without complications; E78.5 Hyperlipidemia, unspecified; Z79.82 Long term (current) use of aspirin; Z79.899 Other long term (current) drug therapy; Z79.84 Long term (current) use of oral hypoglycemic drugs; R26.89 Other abnormalities of gait and mobility; Z96.642 Presence of left artificial hip joint